=== PATIENT | female | born 1980 | race Caucasian/White ===

== ENCOUNTER 2022-02-06 13:32 | Outpatient (REF) | payer BC, SELFPAY ==
[2022-02-07 02:49] LABS: CT PCR NOT DETECTED (Not Detect.); NG PCR NOT DETECTED (Not Detect.)
[2022-02-07 13:03] LABS: BV Int Neg Control Negative (Negative); BV Int Pos Control Positive (Positive)
[2022-02-09 17:02] LABS: HPV mRNA E6/E7 rflx Not Detected (Not Detected)
== END 2022-02-06 13:33 | disposition home or self-care (01) ==
LOC: HO.LAB 13:32
PROVIDERS: PCP Internal Medicine; Visit Provider Advanced Practice Midwife
DX: Z01.419 Encounter for gynecological examination (general) (routine) without abnormal findings (principal); Z11.51 Encounter for screening for human papillomavirus (HPV); Z20.2 Contact with and (suspected) exposure to infections with a predominantly sexual mode of transmission; Z87.42 Personal history of other diseases of the female genital tract; Z97.5 Presence of (intrauterine) contraceptive device; Z84.81 Family history of carrier of genetic disease
CPT/HCPCS: 87480; 87491; 87510; 87591; 87624; 87660; 88142

== ENCOUNTER 2022-03-18 08:16 | Outpatient (REF) | payer BC, SELFPAY ==
--- NOTE | ~2022-03-18 | MM_ITS ---
EXAMINATION: MM SCREENING DIGITAL BREAST TOMOSYNTHESIS, BILATERAL CLINICAL INFORMATION: Screening. Asymptomatic. Age 42. No prior breast imaging. The lifetime risk of breast cancer based on the Tyrer-Cuzick Model is 14%. COMPARISON: None (current study represents initial baseline exam). TECHNIQUE: Digital breast tomosynthesis is performed in both the craniocaudal and mediolateral oblique views along with computer-aided detection (CAD). Synthesized 2D images are generated from the tomosynthesis. FINDINGS: There are scattered areas of fibroglandular density (ACR BI-RADS breast composition Category b). There are no significant masses, abnormal calcifications, or other abnormalities. The axilla and skin contours are unremarkable. MM/MM tomosynthesis screening BI IMPRESSION: No mammographic evidence of malignancy. ASSESSMENT: BI-RADS 1: Negative RECOMMENDATION: Routine annual mammography screening. This patient's information was entered into a reminder system with a target due date for their next mammogram.
== END 2022-03-18 08:17 | disposition home or self-care (01) ==
LOC: HO.MAMMO 08:16
PROVIDERS: Visit Provider Advanced Practice Midwife
DX: Z12.31 Encounter for screening mammogram for malignant neoplasm of breast (principal)
CPT/HCPCS: 77063; 77067

== ENCOUNTER → 2022-03-27 15:00 | Outpatient (BNVA) | payer BC, SELFPAY | PROVIDERS: PCP Internal Medicine; Visit Provider Advanced Practice Midwife | DX: Z30.433 Encounter for removal and reinsertion of intrauterine contraceptive device (principal); Z30.09 Encounter for other general counseling and advice on contraception; B37.3 Candidiasis of vulva and vagina; N76.0 Acute vaginitis; B96.89 Other specified bacterial agents as the cause of diseases classified elsewhere; Z84.81 Family history of carrier of genetic disease; Z87.42 Personal history of other diseases of the female genital tract | CPT/HCPCS: 58300; 58301; 81025; J7298 ==

== ENCOUNTER 2023-03-24 07:33 | Outpatient (REF) | payer BC, SELFPAY ==
--- NOTE | ~2023-03-24 | MM_ITS ---
EXAMINATION: MM SCREENING DIGITAL BREAST TOMOSYNTHESIS, BILATERAL CLINICAL INFORMATION: Screening. Asymptomatic. The lifetime risk of breast cancer based on the Tyrer-Cuzick Model is 14%. COMPARISON: Mammography: 03/18/2022 (baseline) TECHNIQUE: Digital breast tomosynthesis is performed in both the craniocaudal and mediolateral oblique views along with computer-aided detection (CAD). Synthesized 2D images are generated from the tomosynthesis. FINDINGS: There are scattered areas of fibroglandular density (ACR BI-RADS breast composition Category b). There are no significant masses, abnormal calcifications, or other abnormalities. Parenchymal pattern is similar to prior exam. No architectural abnormality. The axilla and skin contours are unremarkable. MM/MM tomosynthesis screening BI IMPRESSION: No significant changes from prior baseline exam. ASSESSMENT: BI-RADS 1: Negative RECOMMENDATION: Routine annual mammography screening. This patient's information was entered into a reminder system with a target due date for their next mammogram.
== END 2023-03-24 07:34 | disposition home or self-care (01) ==
LOC: HO.MAMMO 07:33
PROVIDERS: PCP Internal Medicine; Visit Provider Internal Medicine
DX: Z12.31 Encounter for screening mammogram for malignant neoplasm of breast (principal)
CPT/HCPCS: 77063; 77067

== ENCOUNTER → 2023-08-04 11:45 | Outpatient (BNV) | payer BC, SELFPAY | PROVIDERS: Visit Provider Psychiatry & Neurology Psychiatry | DX: F33.9 Major depressive disorder, recurrent, unspecified (principal) | CPT/HCPCS: 90792; 99213 ==

== ENCOUNTER 2023-08-15 10:45 | Outpatient (RCR) | payer BC, SELFPAY ==
--- NOTE | 2023-08-04 10:33 | HO.PS.ADMBH ---
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 Her youngest, 7-year-old lives with her. The father is involved also. Codie states that she was recently admitted and discharged from [facility] inpatient Unit. The reason for the admission was feeling extremely overwhelmed and about to ?snap?. She has been on medications in the past, a number of different SSRIs but did not like the way she felt on them. She denies any major substance abuse problems except for occasional alcohol use as a way of coping but not on a regular basis. No other substances. She was put on Wellbutrin XL 150 mg with no discernible benefits yet, Inderal 10 mg t.i.d. p.r.n. with benefits. She also has been on Adderall XR 20 mg and IR 10 mg in the afternoon since 2010. She has had suicidal ideations and 1 attempt 10 years ago by an overdose but did not go to the emergency room and slept it off. She also talked about some of her current stress sores and feeling overwhelmed from other people depending on her and sometimes she feels ?dumped on? by her daughter who is in college. Past Psychiatric History: Outpatient [facility] Medical History (Updated 08/04/23 @ 10:41 by Ruben Fernandez MD) Diverticula, small intestine Hyperlipemia Surgical History (Updated 02/06/22 @ 14:19 by Malick Fontenot CMA) H/O surgical amputation of finger Social History: Codie is 1 of 5 siblings. Her parents are together and retired and live in [facility]. Her older sister has some psychiatric problems and 1 of her brothers has schizophrenia. She denies any history of abuse growing up but states that may be some neglect. 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 she has had no marriages and has 2 children. The father of the younger 1 is involved. Substance History: Occasional alcohol Trauma History: Use/abuse none Meds/Allergies Meds Home Medications Medication Instructions Recorded Confirmed Type atorvastatin 40 mg tablet 40 mg PO DAILY 02/06/22 03/27/22 History dextroamphetamine-amphetamine 30 30 mg PO DAILY 02/06/22 03/27/22 History mg tablet (Adderall) levonorgestrel 21 mcg/24 hours (8 intrauterine 02/06/22 03/27/22 History yrs) 52 mg intrauterine device (Mirena) Allergies Allergies Allergy/AdvReac Type Severity Reaction Status Date / Time No Known Allergies Allergy Verified 03/27/22 15:19 [No Known Allergies*] Mental Status Exam Mental Status Exam Narrative: In today's visit she is alert, oriented and pleasant. Normal speech. Good eye contact. Affect is appropriate and constricted. No signs of psychosis. Cognitively she is intact with her thought processes being goal directed. Little elaboration. No active SI/HI. Judgment is intact Assessment & Plan Assessment & Plan (1) Major depression: Status: Acute Code(s): F32.9 - Major depressive disorder, single episode, unspecified Plan She will start partial hospital program for which she is appropriate. She will continue her medications and increase the Wellbutrin XL to 300 mg. She was given a 3 month supply it discharge. She will continue Adderall and Inderal Patient educated on: medication risk/benefits Certification I certify that partial hospital treatment is medically necessary due to the symptoms and problems resulting from the patient's mental illness and the failure to treat the patient at the partial hospital level of care would likely result in the patient requiring inpatient psychiatric care which could not be prevented at a less intensive level of care. Time Spent With Patient Time: Total time managing care of this patient today ____ minutes.
[2023-08-04 11:44] VITALS: BMI 29.6
[2023-08-04 11:45] VITALS: BP 109/82; PULSE 59; TEMP 37
--- NOTE | 2023-08-04 12:29 | PC.ADMIT ---
Patient is a 43 year old female who was referred to [facility] by [facility] behavioral health inpatient unit where she was admitted d/t increased depression with passive SI, anxiety, poor sleep, and ETOH use. Patient struggling with financial concerns and worried about her daughter's mental health who is currently a student in her kiana year at [employer]. Patient reports drinking ETOH 2-5 days a week drinking 1/2 pint to 1/2 liter at a time. Last use, several weeks ago. Denied hx of withdrawal sxs from ETOH. Per [facility] records toxicology reports positive for Oxycontin, patient denied use. Patient has a history of MAT with Vivitrol from [id number] for six months. She is currently prescribed Naltrexone however is not taking the medication at this time. She denied any cravings to use. Medication education provided. Codie is alert and oriented x4. calm and cooperative. Presented with depressed mood and anxious affect. Denied SI. She was given a copy of her safety plan and I reviewed this plan with her. Medications reconciled wiht patient and D/C paperwork from [facility]. Patient stated she is on a new medication for anxiety, Propranolol, verified with patient's pharmacy. She is currently taking a leave of absence from work to work on her mental health.
[2023-08-05 09:04] LABS: Amphetamine Screen Urine POSITIVE (Not Detect); Barbiturates, Urine Not Detected (Not Detect); Benzodiazepines Screen Urine Not Detected (Not Detect); Cannabinoid Screen Urine Not Detected (Not Detect); Cocaine Screen Urine Not Detected (Not Detect); Fentanyl, urine Not Detected (Not Detect); Opiate Screen Urine Not Detected (Not Detect); Phencyclidine Screen Urine Not Detected (Not Detect)
--- NOTE | 2023-08-08 08:28 | HO.PHP ---
The clients case was reviewed and opened in treatment team
--- NOTE | 2023-08-15 09:50 | HO.PHPPROGNO ---
Subjective Subjective Date of Service: 08/15/23 Reason For Visit: depression Healthcare Proxy: No Guardianship: No Medical Problems Affecting Mental Status: No Interim History: Codie is seen for follow-up/discharge. She has been stable and talked at length about the specific areas that the program has been very helpful to her. She does have providers on the outside and has an appointment on 08/23/2023. Current medications were reviewed. She has enough of a supply and no prescriptions were sent in. She denies any side effects. No changes were made today. Discharge papers were signed Medication Compliance: Yes Side effects from medications: No Attending Groups: Yes Review of Systems Review of Systems Yes all other systems are reviewed and are negative Mental Status Exam Mental Status Exam Narrative: In today's visit she is alert, oriented and pleasant. Normal speech. Good eye contact. Affect is appropriate and constricted. No signs of psychosis. Cognitively she is intact with her thought processes being goal directed. Little elaboration. No active SI/HI. Judgment is intact Diagnostics Vital Signs (24Hr): BMI result Body Mass Index 29.6 Assessment & Plan Assessment & Plan (1) Major depression: Status: Acute Code(s): F32.9 - Major depressive disorder, single episode, unspecified Plan Codie is being discharged today. She will follow-up with her outpatient providers Patient educated on: diagnosis and medication risk/benefits Certification I certify that partial hospital treatment is medically necessary due to the symptoms and problems resulting from the patient's mental illness and the failure to treat the patient at the partial hospital level of care would likely result in the patient requiring inpatient psychiatric care which could not be prevented at a less intensive level of care. Total time managing care of this patient today ____ minutes. Discharge Plan Discharge Attending provider: Jose Manuel Patterson Medications: No Action trazodone 50 mg tablet 50 mg PO BEDTIME nicotine (polacrilex) 2 mg Gum 2 mg BUCCAL Q2H naltrexone 50 mg Tablet 50 mg PO DAILY dextroamphetamine-amphetamine 10 mg tablet 1 tab PO DAILY propranolol 10 mg Tablet 10 mg PO TID PRN (Reason: Anxiety) dextroamphetamine-amphetamine 20 mg capsule,extended release 24hr 1 cap PO DAILY bupropion HCl 150 mg tablet extended release 24 hr 150 mg PO QAM atorvastatin 40 mg tablet 40 mg PO BEDTIME Mirena 20 mcg/24 hours (7 yrs) 52 mg intrauterine device intrauterine Stand Alone Forms: Patient Portal Discharge page Patient Education: Depression (DC)
--- NOTE | 2023-08-15 14:14 | HO.PHP ---
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 They will call her directly with the information. I called and left a message for [facility] re appointment for the client, I spoke with Gudelia YOON, the clients insurance office manager and she states that she had also called and made a referral to Jorge [facility]to [facility]. She reassured me that he does have openings.
== END 2023-08-15 23:59 | disposition home or self-care (01) ==
LOC: HO.PHPA 10:45
PROVIDERS: Psychiatry & Neurology Psychiatry; Visit Provider Psychiatry & Neurology Psychiatry
DX: F32.9 Major depressive disorder, single episode, unspecified (principal); Z79.899 Other long term (current) drug therapy
CPT/HCPCS: 80307; 90791; 90853

== ENCOUNTER 2024-04-05 07:30 | Outpatient (REF) | payer BC, SELFPAY | END 2024-04-05 07:31 | disposition home or self-care (01) | LOC: HO.MAMMO 07:30 | PROVIDERS: PCP Internal Medicine; Visit Provider Internal Medicine | DX: Z12.31 Encounter for screening mammogram for malignant neoplasm of breast (principal) | CPT/HCPCS: 77063; 77067 ==

== ENCOUNTER → 2024-04-05 07:30 | Outpatient (BNV) | payer BC, SELFPAY | PROVIDERS: PCP Internal Medicine; Visit Provider Radiology Diagnostic Radiology | DX: Z12.31 Encounter for screening mammogram for malignant neoplasm of breast (principal) | CPT/HCPCS: 77063; 77067 ==

== ENCOUNTER 2024-11-23 13:03 | Outpatient (REF) | payer BC, SELFPAY ==
[2024-11-24 04:35] LABS: CT PCR NOT DETECTED (Not Detect.); NG PCR NOT DETECTED (Not Detect.)
[2024-11-24 11:35] LABS: Bacterial Vaginosis PCR NEGATIVE (Negative); Candida Group PCR NOT DETECTED (Not Detect); Candida glab krusei PCR NOT DETECTED (Not Detect); Trichomonas vaginalis PCR NOT DETECTED (Not Detect)
== END 2024-11-23 13:04 | disposition home or self-care (01) ==
LOC: HO.LAB 13:03
PROVIDERS: PCP Internal Medicine; Visit Provider Advanced Practice Midwife
DX: Z30.431 Encounter for routine checking of intrauterine contraceptive device (principal); N92.1 Excessive and frequent menstruation with irregular cycle; N89.8 Other specified noninflammatory disorders of vagina; Z20.2 Contact with and (suspected) exposure to infections with a predominantly sexual mode of transmission
CPT/HCPCS: 81515; 87491; 87591

== ENCOUNTER 2024-11-23 13:03 | Outpatient (AMB) | payer BC, SELFPAY ==
--- NOTE | 2024-11-23 13:08 | MHC.OFFVIS ---
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 Services: Roll Trucker Present Information Interpreted: clinical only Acquisitions Logistics Analyst: Acquisitions Logistics Analyst Present Allergies methylphenidate [From Concerta] Allergy (Verified 11/23/24 13:12) Rash Medication List - Last Reconciled 11/23/24 by Zainab Castaneda CNM bupropion HCl XL 150 mg PO QAM dextroamphetamine-amphetamine 10 mg 1 tab PO DAILY dextroamphetamine-amphetamine 20 mg ER 1 cap PO DAILY levonorgestrel (Mirena) intrauterine Is last menstrual period known: Yes Last menstrual period: 11/20/24 HPI HPI IUD Check: Details: Patient is here to check her IUD she has had this ones since the spring. She normally does not get any cramping or spotting or bleeding or periods with it but she started having cramping and spotting the feels like. On Friday this is unusual for her end of concern she also was physically active with her 8-year-old and pulled a lower back muscle but she does not know if that is just a coincidence or if something else happened the last time she had sex was about a week ago she did do a test at work and it was negative and she also had a serum test done at work, which was also negative. She is concerned that the IUD have become mis placed [facility] Medical History (Updated 11/23/24 @ 13:44 by Zainab Castaneda CNM) Diverticula, small intestine Hyperlipemia Surgical History (Updated 08/04/23 @ 13:04 by Jacqueline Elizondo RN) History of surgery Social History (Updated 02/06/22 @ 14:19 by Malick Fontenot CMA) Household Members: Children Alcohol intake: never Patient Tobacco Use Status: Never used Tobacco Gender identity: Female Female Reproductive History Menstrual Age of Menarche: 13 Duration of menses: <3 days Date of last menstrual period: 11/20/24 control method: progestin IUCD Date of last pap smear: 02/07/22 (negative) History of abnormal pap smear: Yes (2017 abn.FIDELIA I) Physical Exam Other: Normal external speculum exam vagina is pink and moist with a pinkish discharge cervix multiparous pink smooth with nabothian cyst at cervical os Mirena strings visible and extending about 1-2 cm through os. Cervix probed with Q-tips and Cytobrush no plastic body Mirena IU S palpable in cervical os indicating higher placement. Bimanual-cervix long closed thick mobile nontender uterus small anteverted mobile nontender good muscle tone with Kegel. Assessment & Plan Assessment & Plan (1) Presence of 52 mg levonorgestrel-releasing intrauterine device (IUD): Code(s): Z97.5 - Presence of (intrauterine) contraceptive device Category: Social Hx (2) Breakthrough bleeding associated with intrauterine device (IUD): Comment: and cramping since 11/20 Code(s): N92.1 - Excessive and frequent menstruation with irregular cycle; Z97.5 - Presence of (intrauterine) contraceptive device Category: Medical Plan I have ordered pelvic ultrasound to be done on an urgent basis preferably this week. Printouts of the order also given to patient and she may attempt to see if she can get an ultrasound quicker at her work site as she works at the [employer]. discussed that we can have a tele visit after just to review the results when they are read. Discussed that if the IUD has become this placed or is low lying then that would be reason to remove it and it would need to be replaced in future if she desired further contraception but she is undecided at this point about that. 1st we need to see if there is a problem with it as she is uncomfortable.. If i.f there is no problem with the IUD her ultrasound then her next visit would be for her annual exam if the IUDs low lying or malpositioned the next appointment would be for removal. If she experienced severe pain she should seek emergency care in the meantime. Orders: Orders US pelvic and transvaginal Today N92.1 - Excessive and frequent menstruation with irregular cycle, Z97.5 - Presence of (intrauterine) contraceptive device Coding Level of Care Code Est Pt Level 3 (51004) Diagnoses Presence of 52 mg levonorgestrel-releasing intrauterine device (IUD) Z97.5 Breakthrough bleeding associated with intrauterine device (IUD) N92.1; Z97.5
[2024-11-23 13:09] VITALS: BP 106/68; BMI 29.3
--- OUTSIDE RECORDS SUMMARY | 2024-11-23 15:19 | XMS_ITS | Continuity of Care Document ---
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 It does not include entries that were removed or entered in error. Problem Status Onset Date Problem Type Date of Resolution Comments Source Closed fracture of metatarsal bone Active 2018 Condition Sep 29, 2023 Entered By: JAMES SHIPLEY Comment: Closed nondisplaced fracture of fourth metatarsal bone of left foot [facility] Hypercholesterolemia Active 2017 Condition [facility] Depression Active 2008 Condition [facility] Dry eyes Active 2008 Condition Sep 29, 2023 Entered By: JAMES SHIPLEY Comment: dry eye syndrome both eyes [facility] Myopia Active 2008 Condition Sep 29, 2023 Entered By: JAMES SHIPLEY Comment: refractive error - myopia [facility] Regular astigmatism Active 2008 Condition [facility] Attention Deficit Hyperactivity Disorder ([facility] [id number]) Active Condition Oct 07, 2023 Entered By: QAMAR CONNOLLY Comment: [place] presc[place] [facility] Chronic Post-Traumatic Stress Disorder ([facility]CT [id number]) Active Condition [facility] Polycystic Ovary (SCT 529584068) Active Condition Oct 07, 2023 Entered By: QAMAR CONNOLLY Comment: on spironolactone and tretinoin [facility] no psychiatric diagnosis on axis II Inactive Condition DoD partner relational problem Inactive Condition DoD depression Active Condition DoD psychiatric diagnosis or condition deferred on axis I Active Condition DoD dry eye syndrome both eyes Active Condition DoD astigmatism regular Active Condition Do D refractive error - myopia Active Condition DoD routine ophthalmological exam Active Condition DoD visit for: occupational health / fitness exam Active Condition DoD routine gynecological exam with cervical pap smear Inactive Condition DoD acne Active Condition DoD volume depletion Inactive Condition DoD nausea with vomiting Inactive Condition DoD Diagnosis: ICD-10-CM E28.2 Polycystic ovarian syndrome Active Diagnosis [facility] Diagnosis: ICD-10-CM R30.0 Dysuria Active Diagnosis [facility] Diagnosis: ICD-10-CM Z71.89 Other specified counseling Active Diagnosis [facility] Diagnosis: ICD-10-CM Z77.9 Oth contact w and (suspected) exposures hazardous to health Active Diagnosis [facility] Medications Combined list of outpatient medications from Department of Defense and Veterans Affairs facilities.Medications provided include 1) outpatient medications from the last 15 months, and 2) patient-reported medications. Medication Details Route Status Patient Instructions Prescription Expires Prescription Number Last Dispense Date Ordering Provider Order Date Order Qty Source AMPHETAMINE /DEXTROAMPH ETAMINE RESIN COMPLEX 10MG CAP,SA TAKE 2 CAPSULES BY MOUTH ONCE DAILY ORAL ACTIVE FURCOLO,T GREG 2022 [facility] BUPROPION HCL 300MG 24HR TAB,SA TAKE ONE TABLET BY MOUTH ONCE DAILY ORAL ACTIVE FURCOLO,T GREG 2022 [facility] CIPROFLOXAC IN HCL 500MG TAB TAKE ONE TABLET BY MOUTH EVERY 12 HOURS FOR INFECTIO N ORAL 05/23/2024 [id number] Ale LENZ 2023 20 [facility] METRONIDAZO LE 500MG TAB TAKE ONE TABLET BY MOUTH EVERY 8 HOURS FOR INFECTIO N ORAL 05/23/2024 [id number] Ale LENZ 2023 30 [facility] PROPRANOLOL HCL 10MG TAB TAKE ONE TABLET BY MOUTH ONCE DAILY ORAL ACTIVE FURCOLO,T GREG 2022 [facility] SPIRONOLACT ONE 25MG TAB TAKE TWO TABLETS BY MOUTH ONCE DAILY FOR FLUID ACCUMULA TION ORAL 10/31/2024 [id number] 4 FURCOLO,T GREG 2023 [facility] SPIRONOLACT ONE 25MG TAB TAKE TWO TABLETS BY MOUTH ONCE DAILY FOR FLUID ACCUMULA TION ORAL 06/21/2024 [id number] 4 FURCOLO,T GREG 2023 180 [facility] SPIRONOLACT ONE 25MG TAB TAKE TWO TABLETS BY MOUTH ONCE DAILY FOR FLUID ACCUMULA TION ORAL 01/05/2024 [id number] 3 FURCOLO,T GREG 2022 180 [facility] SULFAMETHOX AZOLE 800MG/TRIME THOPRIM 160MG TAB TAKE 1 TABLET BY MOUTH TWICE DAILY ORAL 10/10/2024 [id number] 4 FURCOLO,T GREG 2023 6 [facility] TRETINOIN 0.025% CREAM,TOP APPLY A THIN LAYER TOPICALL Y ONCE DAILY FOR ACNE TOPICA L 11/06/2023 [id number] 3 FURCOLO,T GREG 2022 45 [facility] Allergies, Adverse Reactions, Alerts Combined list of allergies from Department of Defense and Veterans Affairs facilities. It does not include entries that were removed or entered in error. Substance Category Reaction Severity Reaction type Status Date Reported Comments Source CONCERTA Propensity to adverse reactions to drug (finding) Eruption active 3 [facility] No Known Allergies Drug allergy (disorder) active 8 [employer] Immunizations Combined list of available immunizations from the Department of Defense and Veterans Affairs facilities. Immunization Series Date Given Administered By Site Reaction Lot Number CVX Code Drug Poolroom/Poolhall Manager Status Comments Source INFLUENZA, UNSPECIFIED FORMULATION 2023 88 [facility] INFLUENZA, UNSPECIFIED FORMULATION 1 2022 88 [facility] COVID-19 (MODERNA), MRNA, LNP-S, PF, 100 MCG/0.5ML DOSE OR 50 MCG/0.25ML DOSE 2 2020 207 complet ed Covid card Lot#: [id number] Mfr: [employer] [facility] [place] [facility] COVID-19 (MODERNA), MRNA, LNP-S, PF, 100 MCG/0.5ML DOSE OR 50 MCG/0.25ML DOSE 1 2019 207 complet ed Covid card Lot#: [id number] Mfr: [employer] [facility] INFLUENZA, SEASONAL, INJECTABLE 2016 141 complet ed Site: Left Deltoid [facility] Influenza, seasonal, injectable, preservative free 5 2011 [id number] [employer] (CSL) complet ed Influenza , seasonal, injectabl e, preservat syl free DoD Influenza, seasonal, injectable, preservative free 4 2010 [id number] 140 [employer] (CSL) complet ed Influenza , seasonal, injectabl e, preservat syl free DoD influenza virus vaccine, split virus (incl. purified surface antigen)-reti red CODE 1 2009 [id number] 15 [employer] (CSL) complet ed influenza virus vaccine, split virus (incl. purified surface antigen)- retired CODE DoD Novel influenza-H1N 1-09, preservative- free, injectable 1 2008 [id number] 126 [employer]. (NOV) complet ed Novel influenza -[id number], preservat syl-free, injectabl e DoD hepatitis B vaccine, adult dosage 0 2008 43 () Not Given hepatitis B vaccine, adult dosage DoD influenza virus vaccine, split virus (incl. purified surface antigen)-reti red CODE 1 2008 [id number] 15 [employer] (CSL) complet ed influenza virus vaccine, split virus (incl. purified surface antigen)- retired CODE DoD HEP A-HEP B 3 2008 104 complet ed hepatitis A and hepatitis B vaccine-J /DOD Lot#: [id number] A [facility] hepatitis A and hepatitis B vaccine 3 2008 [id number] 104 [facility] ed hepatitis A and hepatitis B vaccine DoD influenza virus vaccine, live, attenuated, for intranasal use 1 2007 [id number] 111 [employer]. (MED) complet ed influenza virus vaccine, live, attenuate d, for intranasa l use DoD HEP A-HEP B 2 2007 104 complet ed hepatitis A and hepatitis B vaccine-J /[facility] Lot#: [id number] A [facility] hepatitis A and hepatitis B vaccine 2 2007 [id number] 6AA 104 [facility] ([facility] complet ed hepatitis A and hepatitis B vaccine DoD HEP A-HEP B 1 2007 104 complet ed hepatitis A and hepatitis B vaccine-J /[facility] Lot#: [id number] A [facility] measles, mumps and rubella virus vaccine 1 2007 03 () Not Given measles, mumps and rubella virus vaccine DoD varicella virus vaccine 1 2007 21 () Not Given varicella virus vaccine DoD hepatitis A and hepatitis B vaccine 1 2007 [id number] 104 [facility] ([facility]) complet ed hepatitis A and hepatitis B vaccine DoD DTAP 3 2007 20 complet ed tetanus toxoid, reduced diphtheri a toxoid, and acellular pertussis vaccine, adsorbed- V/DOD Lot#: [id number] Mfr: SANOFI PASTEUR [facility] MENINGOCOCCAL MCV4P 1 2007 114 complet ed meningoco ccal polysacch aride (groups A, C, Y and W-135) diphtheri a toxoid conjugate vaccine (MCV4P)-J /[facility] Lot#: [id number] Mfr: [facility] POLIO, UNSPECIFIED FORMULATION 1 2007 89 complet ed polioviru s vaccine, inactivat ed-JLV/DO D Lot#: [id number] Mfr: SANOFI [facility] poliovirus vaccine, inactivated 1 2007 [id number] 10 Sanofi Pasteur ([facility]) complet ed polioviru s vaccine, inactivat ed DoD meningococcal polysaccharid e (groups A, C, Y and W-135) diphtheria toxoid conjugate vaccine (MCV4P) 1 2007 [id number] Sanofi Pasteur ([facility]) complet ed meningoco ccal polysacch aride (groups A, C, Y and W-135) diphtheri a toxoid conjugate vaccine (MCV4P) DoD tetanus toxoid, reduced diphtheria toxoid, and acellular pertu is vaccine, adsorbed 1 2007 [id number] 115 Sanofi Pasteur ([facility]) complet ed tetanus toxoid, reduced diphtheri a toxoid, and acellular pertussis vaccine, adsorbed DoD Results Combined list of recent chemistry, hematology and other laboratory results from Department of Defense and Veterans Affairs, ranging from 15 months to all on record, depending upon the facility. Order Name Results Value Reference Range Date Interpretation Specimen Comments Source LIPID PANEL FASTING CHOLESTERO L [MASS/VOLU ME] IN SERUM OR PLASMA 270 mg/dL 10/07 H Specimen Type: SERUM No comment entered. Ordering Provider: TAYE CONNOLLY Report Released Date/Time: Sep 22, 2024 12:58 PM Reporting Lab: [address] [address] Performing Lab: [address] [address] [facility] LIPID PANEL FASTING TRIGLYCERI DE [MASS/VOLU ME] IN SERUM OR PLASMA 176 mg/dL 0 - 150 10/07 H Specimen Type: SERUM No comment entered. Ordering Provider: TAYE CONNOLLY Report Released Date/Time: Sep 22, 2024 12:58 PM Reporting Lab: [address] [address] Performing Lab: [address] [address] [facility] LIPID PANEL FASTING CHOLESTERO L IN LDL [MASS/VOLU ME] IN SERUM OR PLASMA BY EZEQUIEL Giang 192 mg/dL 0 - 129 10/07 H Specimen Type: SERUM No comment entered. Ordering Provider: TAYE CONNOLLY Report Released Date/Time: Sep 22, 2024 12:58 PM Reporting Lab: [facility] [place] [facility] [address] [facility] [address] Performing Lab: [facility] [place] [facility] [address] [facility] [address] [facility] [place] [facility] LIPID PANEL FASTING CHOLESTERO L.TOTAL/CH OLESTEROL IN HDL [MASS RATIO] IN SERUM OR PLASMA 6.3 10/07 Specimen Type: SERUM No comment entered. Ordering Provider: TAYE CONNOLLY Report Released Date/Time: Sep 22, 2024 12:58 PM Reporting Lab: [facility] [place] [address] [address] Performing Lab: [facility] [address] [address] [facility] LIPID PANEL FASTING CHOLESTERO L IN HDL [MASS/VOLU ME] IN SERUM OR PLASMA 43 mg/dL 40 - 60 10/07 Specimen Type: SERUM No comment entered. Ordering Provider: TAYE CONNOLLY Report Released Date/Time: Sep 22, 2024 12:58 PM Reporting Lab: [facility] [place] [address] [address] Performing Lab: [facility] [place] [address] [address] [facility] [place] [facility] BASIC METABOLI C PANEL (fasting ) UREA NITROGEN [MASS/VOLU ME] IN SERUM OR PLASMA 13 mg/dL 7 - 25 10/07 Specimen Type: SERUM No comment entered. Ordering Provider: TAYE CONNOLLY Report Released Date/Time: Sep 22, 2024 12:58 PM Reporting Lab: [facility] [place] [facility] [address] [facility] [address] Performing Lab: [facility] [place] [address] [address] [facility] [place] [facility] BASIC METABOLI C PANEL (fasting ) GLUCOSE [MASS/VOLU ME] IN SERUM OR PLASMA 92 mg/dL 65 - 100 10/07 Specimen Type: SERUM No comment entered. Ordering Provider: TAYE CONNOLLY Report Released Date/Time: Sep 22, 2024 12:58 PM Reporting Lab: [facility] [address] [address] Performing Lab: [address] [address] [facility] BASIC METABOLI C PANEL (fasting ) SODIUM [MOLES/VOL UME] IN SERUM OR PLASMA 135 mmol/L 135 - 145 10/07 Specimen Type: SERUM No comment entered. Ordering Provider: TAYE CONNOLLY Report Released Date/Time: Sep 22, 2024 12:58 PM Reporting Lab: [address] [address] Performing Lab: [address] [address] [facility] BASIC METABOLI C PANEL (fasting ) POTASSIUM [MOLES/VOL UME] IN SERUM OR PLASMA 4.2 mmol/L 3.5 - 5.0 10/07 Specimen Type: SERUM No comment entered. Ordering Provider: TAYE CONNOLLY Report Released Date/Time: Sep 22, 2024 12:58 PM Reporting Lab: [facility] [address] [address] Performing Lab: [facility] [address] [address] [facility] BASIC METABOLI C PANEL (fasting ) CHLORIDE [MOLES/VOL UME] IN SERUM OR PLASMA 103 mmol/L 100 - 110 10/07 Specimen Type: SERUM No comment entered. Ordering Provider: TAYE CONNOLLY Report Released Date/Time: Sep 22, 2024 12:58 PM Reporting Lab: [address] [address] Performing Lab: [facility] [address] [facility] [address] [facility] BASIC METABOLI C PANEL (fasting ) CARBON DIOXIDE, TOTAL [MOLES/VOL UME] IN SERUM OR PLASMA 23 meq/L 20 - 30 10/07 Specimen Type: SERUM No comment entered. Ordering Provider: TAYE CONNOLLY Report Released Date/Time: Sep 22, 2024 12:58 PM Reporting Lab: [address] [address] Performing Lab: [address] [address] [facility] BASIC METABOLI C PANEL (fasting ) CREATININE [MASS/VOLU ME] IN SERUM OR PLASMA 0.76 mg/dL 0.50 - 1.40 10/07 Specimen Type: SERUM No comment entered. Ordering Provider: TAYE CONNOLLY Report Released Date/Time: Sep 22, 2024 12:58 PM Reporting Lab: [address] [address] Performing Lab: [address] [address] [facility] BASIC METABOLI C PANEL (fasting ) GLOMERULAR FILTRATION RATE/1.73 SQ M.PREDICTE D [VOLUME RATE/AREA] IN SERUM, PLASMA OR BLOOD BY CREATININE -BASED FORMULA (CKD-EPI 2020) >90mL/mi n 60 10/07 Specimen Type: SERUM No comment entered. Ordering Provider: TAYE CONNOLLY Report Released Date/Time: Sep 22, 2024 12:58 PM Reporting Lab: [address] [address] Performing Lab: [address] [address] [facility] URINALYS IS CLEAN CATCH COLOR OF URINE Yellow 09/10 Specimen Type: URINE Comment: If Glucose = >500 and Ketones are positive, please alert the Physician. Ordering Provider: TAYE CONNOLLY Report Released Date/Time: Sep 10, 2024 02:12 PM Reporting Lab: [facility] [address] [facility] [address] Performing Lab: [facility] [address] [facility] [address] [facility] URINALYS IS CLEAN CATCH APPEARANCE OF URINE Turbid 09/10 Specimen Type: URINE Comment: If Glucose = >500 and Ketones are positive, please alert the Physician. Ordering Provider: TAYE CONNOLLY Report Released Date/Time: Sep 10, 2024 02:12 PM Reporting Lab: [facility] [place] [facility] [address] [facility] [address] Performing Lab: [facility] [address] [facility] [address] [facility] URINALYS IS CLEAN CATCH GLUCOSE [MASS/VOLU ME] IN URINE Normalmg /dL 09/10 Specimen Type: URINE Comment: If Glucose = >500 and Ketones are positive, please alert the Physician. Ordering Provider: TAYE CONNOLLY Report Released Date/Time: Sep 10, 2024 02:12 PM Reporting Lab: [facility] [address] [facility] [address] Performing Lab: [facility] [place] [facility] [address] [facility] [address] [facility] URINALYS IS CLEAN CATCH KETONES [MASS/VOLU ME] IN URINE BY TEST STRIP NEGATIVE mg/dL 09/10 Specimen Type: URINE Comment: If Glucose = >500 and Ketones are positive, please alert the Physician. Ordering Provider: TAYE CONNOLLY Report Released Date/Time: Sep 10, 2024 02:12 PM Reporting Lab: [facility] [address] [facility] [address] Performing Lab: [facility] [address] [facility] [address] [facility] URINALYS IS CLEAN CATCH ERYTHROCYT ES [PRESENCE] IN URINE SEDIMENT BY LIGHT MICROSCOPY NEGATIVE mg/dL 09/10 Specimen Type: URINE Comment: If Glucose = >500 and Ketones are positive, please alert the Physician. Ordering Provider: TAYE CONNOLLY Report Released Date/Time: Sep 10, 2024 02:12 PM Reporting Lab: [facility] [place] [facility] [address] [facility] [address] Performing Lab: [facility] [place] [facility] [address] [facility] [address] [facility] [place] URINALYS IS CLEAN CATCH PROTEIN [MASS/VOLU ME] IN URINE BY TEST STRIP 20 mg/dL 09/10 Specimen Type: URINE Comment: If Glucose = >500 and Ketones are positive, please alert the Physician. Ordering Provider: TAYE CONNOLLY Report Released Date/Time: Sep 10, 2024 02:12 PM Reporting Lab: [facility] [place] [address] [address] Performing Lab: [facility] [place] [address] [address] [facility] [place] [facility] URINALYS IS CLEAN CATCH NITRITE [PRESENCE] IN URINE NEGATIVE mg/dL 09/10 Specimen Type: URINE Comment: If Glucose = >500 and Ketones are positive, please alert the Physician. Ordering Provider: TAYE CONNOLLY Report Released Date/Time: Sep 10, 2024 02:12 PM Reporting Lab: [facility] [place] [facility] [address] [facility] [address] Performing Lab: [facility] [place] [facility] [address] [facility] [address] [facility] [place] URINALYS IS CLEAN CATCH BILIRUBIN. TOTAL [PRESENCE] IN URINE NEGATIVE mg/dL 09/10 Specimen Type: URINE Comment: If Glucose = >500 and Ketones are positive, please alert the Physician. Ordering Provider: TAYE CONNOLLY Report Released Date/Time: Sep 10, 2024 02:12 PM Reporting Lab: [facility] [place] [address] [address] Performing Lab: [facility] [place] [facility] [address] [facility] [address] [facility] [place] URINALYS IS CLEAN CATCH SPECIFIC GRAVITY OF URINE BY REFRACTOME TRY 1.024 1.016 - 1.022 09/10 H Specimen Type: URINE Comment: If Glucose = >500 and Ketones are positive, please alert the Physician. Ordering Provider: TAYE CONNOLLY Report Released Date/Time: Sep 10, 2024 02:12 PM Reporting Lab: [facility] [place] [address] [address] Performing Lab: [facility] [place] [address] [address] [facility] [place] [facility] URINALYS IS CLEAN CATCH PH OF URINE BY TEST STRIP 6.5 5.0 - 9.0 09/10 Specimen Type: URINE Comment: If Glucose = >500 and Ketones are positive, please alert the Physician. Ordering Provider: TAYE CONNOLLY Report Released Date/Time: Sep 10, 2024 02:12 PM Reporting Lab: [facility] [place] [address] [address] Performing Lab: [facility] [place] [address] [address] [facility] [place] [facility] URINALYS IS CLEAN CATCH UROBILINOG EN [MASS/VOLU ME] IN URINE BY TEST STRIP Normalmg /dL <2.0 - 2.0 09/10 Specimen Type: URINE Comment: If Glucose = >500 and Ketones are positive, please alert the Physician. Ordering Provider: TAYE CONNOLLY Report Released Date/Time: Sep 10, 2024 02:12 PM Reporting Lab: [facility] [place] [address] [address] Performing Lab: [facility] [place] [address] [address] [facility] [place] [facility] URINALYS IS CLEAN CATCH LEUKOCYTE ESTERASE [PRESENCE] IN URINE BY TEST STRIP LARGE 09/10 Specimen Type: URINE Comment: If Glucose = >500 and Ketones are positive, please alert the Physician. Ordering Provider: TAYE CONNOLLY Report Released Date/Time: Sep 10, 2024 02:12 PM Reporting Lab: [facility]ITALRW[facility]ENTERTRN [facility]USE[address] [address] Performing Lab: [facility]ITALRW[facility] CENTERTRN [facility]USE[address] [address] [facility]ITALRVAUGH[facility] CENTERN [facility]ENTERUSE [facility] [employer] PIC AUTOMATE D, URINE LEUKOCYTES [#/AREA] IN URINE SEDIMENT BY MICROSCOPY HIGH POWER FIELD TNTC/[HP F] 0 - 5 09/10 Specimen Type: URINE Comment: If Glucose = >500 and Ketones are positive, please alert the Physician. Ordering Provider: TAYE CONNOLLY Report Released Date/Time: Sep 10, 2024 02:12 PM Reporting Lab: [facility]ITALRVAUGH[facility]ICAL CENTERN [facility]ENTERUSE[address] [address] Performing Lab: [facility]ITALRWALK[facility] CENTERTRN [facility]ENTERUSE[address] [address] [facility]ITALRVAUGH[facility]ION[facility] MEDICAL CENTERN [facility]ENTERUSE [facility] [employer] PIC AUTOMATE D, URINE BACTERIA [#/AREA] IN URINE SEDIMENT BY MICROSCOPY HIGH POWER FIELD 1+/[HPF] 09/10 Specimen Type: URINE Comment: If Glucose = >500 and Ketones are positive, please alert the Physician. Ordering Provider: TAYE CONNOLLY Report Released Date/Time: Sep 10, 2024 02:12 PM Reporting Lab: [facility]ITALRWALKER BAP[facility] MEDICAL CENTERTRN [facility]ENTERUSE[address] [address] Performing Lab: [facility]ITALRWALK[facility] CENTERTRN [facility] CENTERUSETS [address] [address] [facility]ITALRWALKER BAP[facility] MEDICAL CENTERTRN [facility]ENTERUSE [facility] [employer] P[employer] AUTOMATE D, URINE ERYTHROCYT ES [#/AREA] IN URINE SEDIMENT BY MICROSCOPY HIGH POWER FIELD 11-20/[H PF] 0 - 3 09/10 H Specimen Type: URINE Comment: If Glucose = >500 and Ketones are positive, please alert the Physician. Ordering Provider: TAYE CONNOLLY Report Released Date/Time: Sep 10, 2024 02:12 PM Reporting Lab: [facility] [place] [facility] [address] [facility] [address] Performing Lab: [facility] [place] [facility] [address] [facility] [address] [facility] [place] [facility] MICROSCO PIC AUTOMATE D, URINE EPITHELIAL CELLS.SQUA MOUS [#/AREA] IN URINE SEDIMENT BY MICROSCOPY HIGH POWER FIELD FEW/[HPF ] 09/10 Specimen Type: URINE Comment: If Glucose = >500 and Ketones are positive, please alert the Physician. Ordering Provider: TAYE CONNOLLY Report Released Date/Time: Sep 10, 2024 02:12 PM Reporting Lab: [facility] [place] [facility] [address] [facility] [address] Performing Lab: [facility] [place] [facility] [address] [facility] [address] [facility] TRN [facility] MICROSCO PIC AUTOMATE D, URINE LEUKOCYTE CLUMPS [#/VOLUME] IN URINE BY AUTOMATED COUNT PRESENT/ [HPF] 09/10 Specimen Type: URINE Comment: If Glucose = >500 and Ketones are positive, please alert the Physician. Ordering Provider: TAYE CONNOLLY Report Released Date/Time: Sep 10, 2024 02:12 PM Reporting Lab: [facility] [place] [facility] [address] [facility] [address] Performing Lab: [facility]ENTER[facility]ETS [address] [address] [facility] W[facility]N [facility] URINALYS IS COLOR OF URINE Light-Ye llow 09/09 Specimen Type: URINE Comment: If Glucose = >500 and Ketones are positive, please alert the Physician. Ordering Provider: TAYE CNONOLLY Report Released Date/Time: Sep 09, 2024 11:14 AM Reporting Lab: [facility] [place] [place] [facility] [address] [facility] [address] Performing Lab: [facility] [place] [address] [address] [facility] W[facility]N [facility] URINALYS IS APPEARANCE OF URINE Clear 09/09 Specimen Type: URINE Comment: If Glucose = >500 and Ketones are positive, please alert the Physician. Ordering Provider: TAYE CONNOLLY Report Released Date/Time: Sep 09, 2024 11:14 AM Reporting Lab: [facility] [place] [place] [facility] [address] [facility] [address] Performing Lab: [facility] [place] [address] [address] [facility] [place] [place] [facility] URINALYS IS GLUCOSE [MASS/VOLU ME] IN URINE Normalmg /dL 09/09 Specimen Type: URINE Comment: If Glucose = >500 and Ketones are positive, please alert the Physician. Ordering Provider: TAYE CONNOLLY Report Released Date/Time: Sep 09, 2024 11:14 AM Reporting Lab: [facility]ITALRWALKER [facility] CENTERTRN [place] [address] [address] Performing Lab: [facility] [place] [address] [address] [facility]N [place] [facility] URINALYS IS KETONES [MASS/VOLU ME] IN URINE BY TEST STRIP NEGATIVE mg/dL 09/09 Specimen Type: URINE Comment: If Glucose = >500 and Ketones are positive, please alert the Physician. Ordering Provider: TAYE CONNOLLY Report Released Date/Time: Sep 09, 2024 11:14 AM Reporting Lab: [facility]N [place] [address] [address] Performing Lab: [facility] [place] [facility] [address] [facility] [address] [facility]N [place] [facility] URINALYS IS ERYTHROCYT ES [PRESENCE] IN URINE SEDIMENT BY LIGHT MICROSCOPY NEGATIVE mg/dL 09/09 Specimen Type: URINE Comment: If Glucose = >500 and Ketones are positive, please alert the Physician. Ordering Provider: TAYE CONNOLLY Report Released Date/Time: Sep 09, 2024 11:14 AM Reporting Lab: [facility]N [place] [address] [address] Performing Lab: [facility] [place] [facility] [address] [facility] [address] [facility]OSPITALRVAUGHAN REGIONAL MEDICAL CENTERN [facility] CENTERUSE [facility] URINALYS IS PROTEIN [MASS/VOLU ME] IN URINE BY TEST STRIP NEGATIVE mg/dL 09/09 Specimen Type: URINE Comment: If Glucose = >500 and Ketones are positive, please alert the Physician. Ordering Provider: TAYE CONNOLLY Report Released Date/Time: Sep 09, 2024 11:14 AM Reporting Lab: [facility]N [place] [facility] [address] [facility] [address] Performing Lab: [facility]PITALRWALKER BAPTIST MEDICAL CENTERTRN [facility] CENTERUSETS [address] [address] [facility]N [facility]ENTERUSE [facility] URINALYS IS NITRITE [PRESENCE] IN URINE NEGATIVE mg/dL 09/09 Specimen Type: URINE Comment: If Glucose = >500 and Ketones are positive, please alert the Physician. Ordering Provider: TAYE CONNOLLY Report Released Date/Time: Sep 09, 2024 11:14 AM Reporting Lab: [facility]ITALRWALKER BAPTIST MEDICAL CENTERTRN [place] [address] [address] Performing Lab: [facility] [place]N [place] [address] [address] [facility]OS[facility]ITALN [facility] CENTERUSE [facility] URINALYS IS BILIRUBIN. TOTAL [PRESENCE] IN URINE NEGATIVE mg/dL 09/09 Specimen Type: URINE Comment: If Glucose = >500 and Ketones are positive, please alert the Physician. Ordering Provider: TAYE CONNOLLY Report Released Date/Time: Sep 09, 2024 11:14 AM Reporting Lab: [facility]ITALRWALKER BAPTIST MEDICAL CENTERTRN [place] [address] [address] Performing Lab: [facility]ITALRWALKER BAPTIST MEDICAL CENTERTRN [facility] CENTERUSETS [address] [address] [facility]ITALN [facility] CENTERUSE [facility] URINALYS IS SPECIFIC GRAVITY OF URINE BY REFRACTOME TRY 1.007 1.016 - 1.022 09/09 L Specimen Type: URINE Comment: If Glucose = >500 and Ketones are positive, please alert the Physician. Ordering Provider: TAYE CONNOLLY Report Released Date/Time: Sep 09, 2024 11:14 AM Reporting Lab: [facility] [place] [facility] [address] [facility] [address] Performing Lab: [facility] [facility] [address] [facility] [address] [facility] [place] [facility] URINALYS IS PH OF URINE BY TEST STRIP 6.0 5.0 - 9.0 09/09 Specimen Type: URINE Comment: If Glucose = >500 and Ketones are positive, please alert the Physician. Ordering Provider: TAYE CONNOLLY Report Released Date/Time: Sep 09, 2024 11:14 AM Reporting Lab: [facility] [place] [facility] [address] [facility] [address] Performing Lab: [facility] [place] [facility] [address] [facility] [address] [facility] [place] [facility] URINALYS IS UROBILINOG EN [MASS/VOLU ME] IN URINE BY TEST STRIP Normalmg /dL <2.0 - 2.0 09/09 Specimen Type: URINE Comment: If Glucose = >500 and Ketones are positive, please alert the Physician. Ordering Provider: TAYE CONNOLLY Report Released Date/Time: Sep 09, 2024 11:14 AM Reporting Lab: [facility] [place] [facility] [address] [facility] [address] Performing Lab: [facility] [place] [facility] [address] [facility] [address] [facility] [place] [facility] URINALYS IS LEUKOCYTE ESTERASE [PRESENCE] IN URINE BY TEST STRIP NEGATIVE 09/09 Specimen Type: URINE Comment: If Glucose = >500 and Ketones are positive, please alert the Physician. Ordering Provider: TAYE CONNOLLY Report Released Date/Time: Sep 09, 2024 11:14 AM Reporting Lab: [facility] [place] [facility] [address] [facility] [address] Performing Lab: [facility] [place] [facility] [address] [facility] [address] [facility] [place] [facility] LIPID PANEL FASTING CHOLESTERO L [MASS/VOLU ME] IN SERUM OR PLASMA 239 mg/dL 10/08 H Specimen Type: SERUM No comment entered. Ordering Provider: TAYE CNONOLLY Report Released Date/Time: Oct 07, 2023 03:59 PM Reporting Lab: [facility] [place] [address] [address] Performing Lab: [facility]ITALRL WSTRN [facility]ENTERUSE[address] [address] [facility]ITALRL WSTRN [facility]ENTERUSE [facility] LIPID PANEL FASTING TRIGLYCERI DE [MASS/VOLU ME] IN SERUM OR PLASMA 103 mg/dL 0 - 150 10/08 Specimen Type: SERUM No comment entered. Ordering Provider: TAYE CONNOLLY Report Released Date/Time: Oct 07, 2023 03:59 PM Reporting Lab: [facility]PITALRWALKER BAPTIST MEDICAL CENTERTRN [facility] CENTERUSE[address] [address] Performing Lab: [facility]ITALRL WSTRN [facility] CENTERUSE[address] [address] [facility]ITALRL TRN [facility]ENTERUSE [facility] LIPID PANEL FASTING CHOLESTERO L IN LDL [MASS/VOLU ME] IN SERUM OR PLASMA BY [place] N 184 mg/dL 0 - 129 10/08 H Specimen Type: SERUM No comment entered. Ordering Provider: TAYE CONNOLLY Report Released Date/Time: Oct 07, 2023 03:59 PM Reporting Lab: [facility]ITALRL [place] [place] [address] [address] Performing Lab: [facility] [place] [address] [address] [facility]ITALRL WSTRN [place] [facility] LIPID PANEL FASTING CHOLESTERO L.TOTAL/CH OLESTEROL IN HDL [MASS RATIO] IN SERUM OR PLASMA 7.0 10/08 Specimen Type: SERUM No comment entered. Ordering Provider: TAYE CONNOLLY Report Released Date/Time: Oct 07, 2023 03:59 PM Reporting Lab: [facility]ITALR WSTRN [facility] CENTERUSE[address] [address] Performing Lab: [facility]ENTERUSETS [facility] [address] [facility] [address] [facility]ITALRL WSTRN [place] [facility] LIPID PANEL FASTING CHOLESTERO L IN HDL [MASS/VOLU ME] IN SERUM OR PLASMA 34 mg/dL 40 - 60 10/08 L Specimen Type: SERUM No comment entered. Ordering Provider: TAYE CONNOLLY Report Released Date/Time: Oct 07, 2023 03:59 PM Reporting Lab: [facility]ITALRL WSTRN [facility] CENTERUSETS [address] [address] Performing Lab: [facility] [place] [facility] CENTERUSETS [address] [address] [facility]ITALRL [facility]ERN [facility]USE [facility] BASIC METABOLI C PANEL (fasting ) UREA NITROGEN [MASS/VOLU ME] IN SERUM OR PLASMA 11 mg/dL 7 - 25 10/08 Specimen Type: SERUM No comment entered. Ordering Provider: TAYE CONNOLLY Report Released Date/Time: Oct 07, 2023 03:59 PM Reporting Lab: [facility]RL [facility] [place] [address] [address] Performing Lab: [facility] [place] [facility]ENTERUSETS [address] [address] [facility]ITALRL TRN [facility]ENTERUSE [facility] BASIC METABOLI C PANEL (fasting ) GLUCOSE [MASS/VOLU ME] IN SERUM OR PLASMA 94 mg/dL 65 - 100 10/08 Specimen Type: SERUM No comment entered. Ordering Provider: TAYE CONNOLLY Report Released Date/Time: Oct 07, 2023 03:59 PM Reporting Lab: [facility]RL [facility] [place] [address] [address] Performing Lab: [facility] [place] [address] [address] [facility]ITALRL WSTRN [place] [facility] BASIC METABOLI C PANEL (fasting ) SODIUM [MOLES/VOL UME] IN SERUM OR PLASMA 137 mmol/L 135 - 145 10/08 Specimen Type: SERUM No comment entered. Ordering Provider: TAYE CONNOLLY Report Released Date/Time: Oct 07, 2023 03:59 PM Reporting Lab: [facility] [place] [address] [place] [address] Performing Lab: [facility] [place] [facility] [address] [facility] [address] [facility]ITALRL WSTRN [place] [facility] BASIC METABOLI C PANEL (fasting ) POTASSIUM [MOLES/VOL UME] IN SERUM OR PLASMA 4.0 mmol/L 3.5 - 5.0 10/08 Specimen Type: SERUM No comment entered. Ordering Provider: TAYE CONNOLLY Report Released Date/Time: Oct 07, 2023 03:59 PM Reporting Lab: [facility] [place] [facility] [address] [facility] [address] Performing Lab: [facility]ITALRL WSTRN [facility]ENTERUSETS [facility] [address] [facility] [address] [facility]OSPITALRWALKER BAPTIST MEDICAL CENTERTRN [facility]ENTERUSE [facility] BASIC METABOLI C PANEL (fasting ) CHLORIDE [MOLES/VOL UME] IN SERUM OR PLASMA 105 mmol/L 100 - 110 10/08 Specimen Type: SERUM No comment entered. Ordering Provider: TAYE CONNOLLY Report Released Date/Time: Oct 07, 2023 03:59 PM Reporting Lab: [facility]ITALRL WSTRN [facility] CENTERUSETS [address] [address] Performing Lab: [facility] [place] [facility] CENTERUSETS [address] [address] [facility]ITALRWALKER BAPTIST MEDICAL CENTERTRN [facility]ENTERUSE [facility] BASIC METABOLI C PANEL (fasting ) CARBON DIOXIDE, TOTAL [MOLES/VOL UME] IN SERUM OR PLASMA 24 meq/L 20 - 30 10/08 Specimen Type: SERUM No comment entered. Ordering Provider: TAYE CONNOLLY Report Released Date/Time: Oct 07, 2023 03:59 PM Reporting Lab: [facility]ITALRL [facility]N [place] [facility] [address] [facility] [address] Performing Lab: [facility] [address] [address] [facility]ITALRWALKER BAPTIST MEDICAL CENTERTRN [facility]ENTERUSE [facility] BASIC METABOLI C PANEL (fasting ) CREATININE [MASS/VOLU ME] IN SERUM OR PLASMA 0.82 mg/dL 0.50 - 1.40 10/08 Specimen Type: SERUM No comment entered. Ordering Provider: TAYE CONNOLLY Report Released Date/Time: Oct 07, 2023 03:59 PM Reporting Lab: [facility]ITALRL [facility] [place] [facility] [address] [facility] [address] Performing Lab: [facility] [place] [facility] [address] [facility] [address] [facility]OSPITALRVAUGHAN REGIONAL MEDICAL CENTERN [place] [facility] BASIC METABOLI C PANEL (fasting ) GLOMERULAR FILTRATION RATE/1.73 SQ M.PREDICTE D [VOLUME RATE/AREA] IN SERUM, PLASMA OR BLOOD BY CREATININE -BASED FORMULA (CKD-EPI 2020) >90mL/mi n 60 10/08 Specimen Type: SERUM No comment entered. Ordering Provider: TAYE CONNOLLY Report Released Date/Time: Oct 07, 2023 03:59 PM Reporting Lab: [facility]ITALR WSTRN [address] [address] Performing Lab: [facility]OSPITALRL TRN [facility] CENTERUSETS [address] [address] [facility]OSPITALRVAUGHAN REGIONAL MEDICAL CENTERN MASSUSE [facility] TSH THYROTROPI N [UNITS/VOL UME] IN SERUM OR PLASMA 2.12 u[IU]/mL 0.35 - 5.00 10/08 Specimen Type: SERUM No comment entered. Ordering Provider: TAYE CONNOLLY Report Released Date/Time: Oct 07, 2023 03:59 PM Reporting Lab: [facility]PITALRWALKER BAPTIST MEDICAL CENTERTRN [facility] CENTERUSE[address] [address] Performing Lab: [facility]ITALRL TRN [facility] CENTERUSETS [address] [address] [facility]OSPITALRVAUGHAN REGIONAL MEDICAL CENTERN [facility] CENTERUSE [facility] Vital Signs Combined list of inpatient and outpatient Vital Signs from Department of Defense and Veterans Affairs, ranging from 12 months to all on record, depending upon the facility. Vital Sign Value Date Comments Source SYSTOLIC BLOOD PRESSURE 110 10/07/20 24 15:38:12 [facility]ITALRVAUGHAN REGIONAL MEDICAL CENTERN [facility] DIASTOLIC BLOOD PRESSURE 73 024 15:38:12 [facility] PULSE OXIMETRY 96 10/07/2024 15:38:12 [facility] [place] [facility] WEIGHT 166 10/07/2024 15:38:12 [facility] [place] [facility] BMI 30kg/m2 10/07/2024 15:38:12 [facility] [place] [facility] PAIN 0 10/07/2024 15:38:12 [facility] [place] [facility] TEMPERATURE 98.5 10/07/2024 15:38:12 [facility] [place] [facility] PULSE 87 10/07/2024 15:38:12 [facility] [place] [facility] RESPIRATION 16 10/07/2024 15:38:12 [facility] [place] [facility] SYSTOLIC BLOOD PRESSURE 123 09/09/20 13:47:02 [facility] [place] [facility] DIASTOLIC BLOOD PRESSURE 83 024 13:47:02 [facility] [place] [facility] PULSE OXIMETRY 98 09/09/2024 13:47:02 [facility] [place] [facility] TEMPERATURE 98.4 09/09/2024 13:47:02 [facility] [place] [facility] PULSE 66 09/09/2024 13:47:02 [facility] [place] [facility] RESPIRATION 18 09/09/2024 13:47:02 [facility] [place] [facility] SYSTOLIC BLOOD PRESSURE 120 04/23/20 15:05:46 [facility] [place] [facility] DIASTOLIC BLOOD PRESSURE 83 024 15:05:46 [facility] [place] [facility] PULSE OXIMETRY 98 04/23/2024 15:05:46 [facility] [place] [facility] WEIGHT 161 04/23/2024 15:05:46 [facility] [place] [facility] BMI 30kg/m2 04/23/2024 15:05:46 [facility] [place] [facility] PAIN 6 04/23/2024 15:05:46 [facility] [place] [facility] PULSE 97 04/23/2024 15:05:46 [facility] [place] [facility] RESPIRATION 18 04/23/2024 15:05:46 [facility] Encounters Combined list of: 1) Encounters from Department of Veterans Affairs facilities going back up to thelast 18 months. 2) Encounters from the Department of Defense facilities going back up to 280 months. Location Location Details Encounter Type Encounter Number Reason For Visit Attending Provider ADM Date DC Date Status Disposition [place] [address]([facility]) OUTPATIENT [id number] 1420-VO MITING (322/57 4) RACQUEL HOLLINGSWORTH 06/23 Sick at Home/Quarter s [facility] [place] [address](T [facility]rezlan d) [place] [address]([facility], [facility]) OUTPATIENT [id number] 1220- [facility] [employer] [facility] (322/57 4) DARWIN GIL 06/28 Released w/o Limitations [facility] [place] [address](T [facility] [place]) [employer](Fam [facility] [employer]) OUTPATIENT [id number] wwe...j WOO Jernigan 03/09 Released w/o Limitations [employer](F [facility] [employer]) [employer](Opt ometry Cl EG) OUTPATIENT [id number] Eye exam... [facility] MACY STATON 09/19 Released w/o Limitations [employer](O ptometr y Cl EG) [facility]) TELE CONSULT [id number] LUISA Mancilla S 10/23 [facility]) [facility]) OUTPATIENT [id number] anxiety /Depres LUISA Ocampo S 10/25 Released w/o Limitations [facility]) [facility]) OUTPATIENT [id number] anxiety /depres GEMMA Light 10/26 Released w/o Limitations [employer]([facility]) [facility]) OUTPATIENT [id number] f/u LUISA BEACH 10/31 Released w/o Limitations [facility]) [facility] [place] [facility] En[facility] [id number] 08/17 [facility] [place] [facility] [place] En[facility] [id number] 09/29 [facility] [place] [facility] [place] [facility] OFFICE O/P NEW [place] 60-74 MIN [id number] Diagnos is: ICD-10- CM E28.2 Polycys tic ovarian syndrom e
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<br/ > Sonam FARLEY 04/23 [facility] [place] En[facility] [id number] 04/23 [facility] [place] Encounter [id number] Diagnos is: ICD-10- CM Z77.9 Oth contact w and (suspec claudia) exposur es hazardo [facility]< br/> ISHAAN ALBARADO 07/15 [facility] [place] En[facility] [id number] 08/02 [facility] [place] En[facility] [id number] 1.09/09 [facility] [place] Encounter [id number] 1.09/09 [facility] [place] OFF/OP EST MAY X REQ PHY/QHP [id number] 1. 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 Diagnos is: ICD-10- CM R30.0 Dysuria
PERLA LESLIE 09/09 [facility] En[facility] [id number] Tammy FOWLER 09/10 [facility] [place] En[facility] [id number] 09/15 [facility] Encounter [id number] 09/24 [facility] OFFICE O/P EST MOD 30 MIN [id number] Diagnos is: ICD-10- CM E28.2 Polycys tic ovarian syndrom e
FELISHA CONNOLLY NA 10/07 [facility] Outpatient Encounter [id number] RYLEE ESPITIA 11/19 [facility] Procedures Combined list of: 1) Procedures from [facility] facilities going back up to thelast 18 months, not all [place] non-surgical procedures are included; 2) All procedures from the Department of Defense facilities. Procedure Procedure Type Code Date Perfomer Comments Sourc e PREPARATION OF REPORT OF PATIENT'S PSYCHIATRIC STATUS, HISTORY, TREATMENT, OR PROGRESS (OTHER THAN FOR LEGAL OR CONSULTATIVE PURPOSES) FOR OTHER INDIVIDUALS, AGENCIES, OR INSURANCE CARRIERS 02/20/20 11 [facility] INDIVIDUAL PSYCHOTHERAPY, INSIGHT ORIENTED, BEHAVIOR MODIFYING AND/OR SUPPORTIVE, IN AN OFFICE OR OUTPATIENT FACILITY, APPROXIMATELY 45 TO 50 MINUTES SYQN-UV-[id number] WITH THE PATIENT 10/31/20 [facility] INDIVIDUAL PSYCHOTHERAPY, INSIGHT ORIENTED, BEHAVIOR MODIFYING AND/OR SUPPORTIVE, IN AN OFFICE OR OUTPATIENT FACILITY, APPROXIMATELY 20 TO 30 MINUTES [id number] WITH THE PATIENT 10/26/20 [facility] PSYCHIATRIC DIAGNOSTIC INTERVIEW EXAMINATION 10/25/20 [facility] FUNDUS PHOTOGRAPHY WITH INTERPRETATION AND REPORT 09/19/20 09 [facility] INJECTION, PROMETHAZINE HCL, UP TO 50 MG 06/23/20 08 [facility] Psychiatric Therapy Preparation of Psychiatric Status Report Psychiatric Therapy Preparation of Psychiatric Status Report [id number] 02/20/20 11 GEMMA GUTIERREZ [facility] Psychiatric Diagnostic Evaluation Review of Records and Reports Psychiatric Diagnostic Evaluation Review of Records and Reports [id number] 02/20/20 11 GEMMA GUTIERREZ [facility] Psychotherapy Individual Approximately 45 Minutes Psychotherapy Individual Approximately 45 Minutes [id number] 11/01/20 LUISA BEACH [facility] Psychotherapy Individual Approximately 45 Minutes Psychotherapy Individual Approximately 45 Minutes [id number] 10/26/20 09 GEMMA GUTIERREZ [facility] Psychiatric Diagnostic Evaluation Comprehensive Examination Psychiatric Diagnostic Evaluation Comprehensive Examination [id number] 10/25/20 09 LUISA BECAH [facility] Determination Of Refractive State Determination Of Refractive State 34433 09/21/20 09 MACY STATON [facility] Spectacles Services Fitting Monofocal Except For Aphakia Spectacles Services Fitting Monofocal Except For Aphakia 00325 09/21/20 09 YAIRCAMERONMACY Mikala SPEC FIT 3X [facility] Ophthalmological New Patient Start Comprehensive Care Ophthalmological New Patient Start Comprehensive Care [id number] 09/21/20 09 MACY STATON [facility] Social History Combined list of available smoking, tobacco, and other social history from Department of Defense and [facility] Affairs facilities. Social History Type Response Date Comment Sour e Tobacco smoking status NHIS VA-TOBACCO NEVER USED CIGARETTES 10/07/2024 [facility] [place] [facility] History of tobacco use PA-TOBACCO NEVER USED OTHER TYPE 10/07/2024 [facility] [place] [facility] History of tobacco use PA-TOBACCO FORMER USER 09/29/2023 [facility] [place] [place] [facility] This section is an empty social history section. DoD
--- OUTSIDE RECORDS SUMMARY | 2024-11-23 15:20 | XMS_ITS | Encounter Summary ---
Author Name [facility] [place] Address [address] [place] [address] Care Team Providers Care Temporary Help Agency Referral Clerk Name Role Phone QAMAR CONNOLLY Primary Care Provider Xavier ramos Selected Encounter This section includes the information on record at [place] for the Encounter. Date/Time Encounter Type Encounter Description Reason Provider Source Sep 10, 2024 08:16 AM Outpatient Encounter PRIMARY CARE/MEDICINE ADE MATA Encounter Template Text not used by [place] Plan of Treatment: Future Appointments (+ 6 months) and Future Tests (+/- 45 days) The Plan of Treatment section includes future care activities for the patient from all [place] treatmentfacilities. This section includes future appointments and future orders which are active, pending or scheduled. Future Appointments This section includes appointments that were scheduled to occur 6 months from the date of the Encounter, up to a maximum of 20 appointments. The data comes from all [place] treatment facilities. Appointment Date/Time Appointment Type Appointme nt Facility Name Oct 07, 2024 03:30 PM AMBULATORY - MEDICINE [facility] Nov 22, 2024 01:30 PM AMBULATORY - PSYCHIATRY [facility] Active, Pending, and Scheduled Orders This section includes a listing of several types of active, pending, and scheduled orders, including clinic medications orders, diagnostic test orders, procedure orders and consult orders; where the start date of the order is 45 days before the date of the Encounter or 45 days after the date of theEncounter. The data comes from all [place] treatment facilities. Test Date/Time Test Type Test Details Facility Name Sep 10, 2024 12:00 AM Laboratory - Chemistry Order URINALYSIS CLEAN CATCH URINE SP [facility] Lab Results: +/- 30 days of the encounter This section includes the Chemistry and Hematology Lab Results on record with [place] for the patient. Radiology Reports and Pathology Reports are provided separately, in subsequent sections. Lab Results This section contains the Chemistry/Hematology Results that were resulted 30 days before or 30 daysafter the date of the Encounter. Date/Time Source Result Type Result - Unit Interpretation Reference Range Comment Oct 07, 2024 08:30 AM [facility] LIPID PANEL FASTING Specimen Type: SERUM No comment entered. Ordering Provider: QAMAR CONNOLLY Report Released Date/Time: Sep 22, 2024 12:58 PM Reporting Lab: [address] [address] Performing Lab: [facility] [address] [facility] [address] CHOLESTEROL 270 mg/dL H TRIGLYCERIDE 176 mg/dL H 0-150 LDL calculated 192 mg/dL H 0-129 CHOL/HDL 6.3 HDL CHOLESTEROL 43 mg/dL 40-60 Oct 07, 2024 08:30 AM [facility] BASIC METABOLIC PANEL (fasting) Specimen Type: SERUM No comment entered. Ordering Provider: QAMAR CONNOLLY Report Released Date/Time: Sep 22, 2024 12:58 PM Reporting Lab: [facility] [address] [facility] [address] Performing Lab: [address] [address] UREA NITROGEN 13 mg/dL 7-25 GLUCOSE 92 mg/dL 65-100 SODIUM 135 mmol/L 135-145 POTASSIUM 4.2 mmol/L 3.5-5.0 CHLORIDE 103 mmol/L 100-110 CO2 23 meq/L 20-30 CREATININE, Serum 0.76 mg/dL 0.50-1.40 eGFR(CKD-EPI 2020) >90 mL/min >60 Sep 10, 2024 02:16 PM [facility] URINALYSIS CLEAN CATCH Specimen Type: URINE Comment: If Glucose = >500 and Ketones are positive, please alert the Physician. Ordering Provider: QAMAR CONNOLLY Report Released Date/Time: Sep 10, 2024 02:12 PM Reporting Lab: [address] [address] Performing Lab: [address] [address] UA COLOR Yellow Yellow UA APPEARANCE Turbid Clear UA GLUCOSE Normal mg/dL Negative UA KETONES NEGATIVE mg/dL Negative UA BLOOD NEGATIVE mg/dL Negative UA PROTEIN 20 mg/dL Negative UA NITRITE NEGATIVE mg/dL Negative UA BILIRUBIN NEGATIVE mg/dL Negative UA SPECIFIC GRAVITY 1.024 H 1.016-1.022 UA pH 6.5 5.0-9.0 UA UROBILINOGEN Normal mg/dL <2.0 UA LEUKOCYTE LARGE Negative Sep 10, 2024 02:16 PM [facility] MICROSCOPIC AUTOMATED, URINE Specimen Type: URINE Comment: If Glucose = >500 and Ketones are positive, please alert the Physician. Ordering Provider: QAMAR CONNOLLY Report Released Date/Time: Sep 10, 2024 02:12 PM Reporting Lab: [address] [address] Performing Lab: [address] [address] UA WBC TNTC /[HPF] 0-5 UA BACTERIA 1+ /[HPF] NoneObs UA RBC 11-20 /[HPF] H 0-3 UA SQUAMOUS EPITH FEW /[HPF] UA WBC CLUMPS PRESENT /[HPF] None Sep 09, 2024 11:18 AM [facility] URINALYSIS Specimen Type: URINE Comment: If Glucose = >500 and Ketones are positive, please alert the Physician. Ordering Provider: QAMAR CONNOLLY Report Released Date/Time: Sep 09, 2024 11:14 AM Reporting Lab: [address] [address] Performing Lab: [facility] [address] [facility] [address] UA COLOR Light-Yellow Yellow UA APPEARANCE Clear Clear UA GLUCOSE Normal mg/dL Negative UA KETONES NEGATIVE mg/dL Negative UA BLOOD NEGATIVE mg/dL Negative UA PROTEIN NEGATIVE mg/dL Negative UA NITRITE NEGATIVE mg/dL Negative UA BILIRUBIN NEGATIVE mg/dL Negative UA SPECIFIC GRAVITY 1.007 L 1.016-1.022 UA pH 6.0 5.0-9.0 UA UROBILINOGEN Normal mg/dL <2.0 UA LEUKOCYTE NEGATIVE Negative Social History: Smoking Status (Most current) and Tobacco Use (All prior to encounter date) This section includes the most current, and the historical, smoking and tobacco- related health factors from the [place] facility where the Encounter took place. Current Smoking Status This section includes the most current smoking, or tobacco-related health factor, from the [place] facility where the Encounter took place. Date/Time Current Smoking Status Comment Facil ity Sep 29, 2023 08:46 AM VA-TOBACCO FORMER USER [facility] Tobacco Use History This section includes a history of the smoking, or tobacco-related health factors, that were collected on or before the date of the Encounter. The data comes from the [place] facility where the Encounter took place. Date/Time Smoking Status/Tobacco Use Comment F acility Sep 29, 2023 08:46 AM [place]-TOBACCO QUIT 5 TO < 15 YRS [facility] Pathology Reports: +/- 30 days of the encounter Pathology Reports For cases when an order for pathology services may have been completed prior to the date of the Encounter, the report list includes the Pathology Reports that were completed up to 30 days before dateof the Encounter. For cases when an order for pathology services may have been completed after the date of the Encounter, the report list also includes the Pathology Reports that were completed up to30 days after date of the Encounter. The data comes from all [place] treatment facilities. Date/Time Pathology Report Provider Source Sep 09, 2024 11:18 AM LR MICROBIOLOGY RE PORT: Reporting Lab: [facility] [CLIA# [id number]] [address] [place] [address] Accession [UID]: [id number] [[id number]] Received: Sep 09, 2024@11:18 Collection sample: URINE CLEAN CATCH Collection date: Sep 09, 2024 11:18 Site/Specimen: URINE Provider: QAMAR CONNOLLY Test(s) ordered: URINE CULTURE(MWROX).......... completed: Sep 13, 2024 10:40 * BACTERIOLOGY FINAL REPORT => Sep 13, 2024 10:40 TECH CODE: [id number] Bacteriology Remark(s): <10,000 CFU/ML GRAM POSITIVE (NOT OTHERWISE SPECIFIED) =--=--=--=--=--=--=--=-- =--=--=--=--=--=--=--=-- =--=--=--=--=--=--=--=-- =--=-- Performing Laboratory: Bacteriology Report Performed By: [facility] [CLIA# [id number]] [address] [place] [id number] BRIANNA MILLIGAN [facility] Encounter Notes: All associated encounter notes This section contains the clinical notes associated to the Encounter. Date/Time Encounter Note(s) Provider Source Sep 10, 2024 08:16 AM PRIMARY CARE Free [employer] MESSAGING: LOCAL TITLE: PRIMARY CARE SECURE MESSAGING STANDARD TITLE: PRIMARY CARE SECURE MESSAGING DATE OF NOTE: SEP 10, 2024@08:16 ENTRY DATE: SEP 10, 2024@08:16:27 AUTHOR: ADE MATA EXP COSIGNER: URGENCY: STATUS: COMPLETED ------Original Message ------- Sent: 09/09/2024 10:30 AM ET From: NEY CONNOR To: Alicia CONNOLLY _ PRIMARY CARE_[facility] Subject: Appointment:UTI Good morning, I'm pretty sure that I have a uti. Is there availability to be seen today? Thank you, Ney ------Original Message ------- Sent: 09/10/2024 08:16 AM ET From: ADE MATA To: NEY CONNOR Subject: Appointment:UTI Good Morning, Thought I would check in on you and see how you are feeling today after your visit at [facility] yesterday? Respectfully, Ade Mata RN /adonay/ ADE MATA RN REGISTERED NURSE Signed: 09/10/2024 08:16 ADE MATA [facility]
--- OUTSIDE RECORDS SUMMARY | 2024-11-23 15:20 | XMS_ITS ---
Author Name [facility] [place] Address [address] [place] [address] Care Team Providers Care Compliance Vice President Name Role Phone QAMAR CONNOLLY Primary Care Provider Unavailabl e Selected Encounter This section includes the information on record at [place] for the Encounter. Date/Time Encounter Type Encounter Description Reason Pro vider Source Aug 02, 2024 09:49 AM Outpatient Encounter PRIMARY CARE/MEDICINE IHE Encounter Template Text not used by [place] Plan of Treatment: Future Appointments (+ 6 months) and Future Tests (+/- 45 days) The Plan of Treatment section includes future care activities for the patient from all [place] treatmentfacilities. This section includes future appointments and future orders which are active, pending or scheduled. Future Appointments This section includes appointments that were scheduled to occur 6 months from the date of the Encounter, up to a maximum of 20 appointments. The data comes from all [place] treatment facilities. Appointment Date/Time Appointment Type Appointme nt Facility Name Sep 09, 2024 01:30 PM AMBULATORY - [place]ICINE [place] [facility] [place] [facility] Sep 09, 2024 02:00 PM AMBULATORY - MEDICINE [place] [facility] Oct 07, 2024 03:30 PM AMBULATORY - MEDICINE [place] [facility] Nov 22, 2024 01:30 PM [facility] Active, Pending, and Scheduled Orders This section includes a listing of several types of active, pending, and scheduled orders, including clinic medications orders, diagnostic test orders, procedure orders and consult orders; where the start date of the order is 45 days before the date of the Encounter or 45 days after the date of theEncounter. The data comes from all [place] treatment facilities. Test Date/Time Test Type Test Details Facility Name Sep 10, 2024 12:00 AM Laboratory - Chemistry Order URINALYSIS CLEAN CATCH URINE SP [facility] Social History: Smoking Status (Most current) and Tobacco Use (All prior to encounter date) This section includes the most current, and the historical, smoking and tobacco- related health factors from the [place] facility where the Encounter took place. Current Smoking Status This section includes the most current smoking, or tobacco-related health factor, from the [place] facility where the Encounter took place. Date/Time Current Smoking Status Comment Facil ity Sep 29, 2023 08:46 AM [place]-TOBACCO FORMER USER [facility] Tobacco Use History This section includes a history of the smoking, or tobacco-related health factors, that were collected on or before the date of the Encounter. The data comes from the [place] facility where the Encounter took place. Date/Time Smoking Status/Tobacco Use Comment F acility Sep 29, 2023 08:46 AM [place]-TOBACCO QUIT 5 TO < 15 YRS [facility] Encounter Notes: All associated encounter notes This section contains the clinical notes associated to the Encounter. Date/Time Encounter Note(s) Provider Source Aug 02, 2024 09:49 AM PREVENTIVE MEDICIN E NURSING NOTE: LOCAL TITLE: CLINICAL REMINDERS/NURSING STANDARD TITLE: PREVENTIVE MEDICINE NURSING NOTE DATE OF NOTE: AUG 02, 2024@09:49 ENTRY DATE: AUG 02, 2024@09:49:58 AUTHOR: LONNIE PARHAM EXP COSIGNER: URGENCY: STATUS: COMPLETED F: Telephone call D: Vet requested a med refill: SPIRONOLACTONE 25MG TAB TAKE TWO TABLETS BY MOUTH ONCE DAILY FOR FLUID ACCUMULATION Advance Directive Screen MH AD: Patient does not have an Advance Directive completed and is requesting more information. The patient received education about Advance Directives and written notification of his/her rights. vet was asked to fill out Advanced diorective and asked to fill it out /adonay/ LONNIE PARHAM MSN Ed., BSN FORESTRY PROFESSOR NURSE Signed: 08/02/2024 09:57 Receipt Acknowledged By: 08/02/2024 10:12 /es/ QAMAR CONNOLLY D.O. PHYSICIAN LONNIE PARHAM [facility]
--- OUTSIDE RECORDS SUMMARY | 2024-11-23 15:20 | XMS_ITS ---
Author Name [facility] [place] Organization [place] Address [address] [place] [address] Care Team Providers Care Crap Shooter Name Role Phone QAMAR CONNOLLY Primary Care Provider Unavailabl e Selected Encounter This section includes the information on record at [place] for the Encounter. Date/Time Encounter Type Encounter Description Reason Provider Source March 22, 2024 10:15 AM Outpatient Encounter PRIMARY CARE/MEDICINE AMARILIS JAMIL Encounter Template Text not used by [place] Plan of Treatment: Future Appointments (+ 6 months) and Future Tests (+/- 45 days) The Plan of Treatment section includes future care activities for the patient from all [place] treatmentfacilities. This section includes future appointments and future orders which are active, pending or scheduled. Future Appointments This section includes appointments that were scheduled to occur 6 months from the date of the Encounter, up to a maximum of 20 appointments. The data comes from all [place] treatment facilities. Appointment Date/Time Appointment Type Appointme nt Facility Name Apr 23, 2024 03:00 PM AMBULATORY - MEDICINE [facility] [place] [facility] Apr 23, 2024 03:01 PM AMBULATORY - MEDICINE [place] [facility] [place] [place] [facility] Sep 09, 2024 01:30 PM AMBULATORY - MEDICINE [facility] [facility] Sep 09, 2024 02:00 PM [facility] Social History: Smoking Status (Most current) and Tobacco Use (All prior to encounter date) This section includes the most current, and the historical, smoking and tobacco- related health factors from the [place] facility where the Encounter took place. Current Smoking Status This section includes the most current smoking, or tobacco-related health factor, from the [place] facility where the Encounter took place. Date/Time Current Smoking Status Comment Lilliam ity Sep 29, 2023 08:46 AM VA-TOBACCO FORMER USER [facility] Tobacco Use History This section includes a history of the smoking, or tobacco-related health factors, that were collected on or before the date of the Encounter. The data comes from the [place] facility where the Encounter took place. Date/Time Smoking Status/Tobacco Use Comment F acility Sep 29, 2023 08:[address] [place]-TOBACCO QUIT 5 TO < 15 YRS [facility] Encounter Notes: All associated encounter notes This section contains the clinical notes associated to the Encounter. Date/Time Encounter Note(s) Provider Source March 23, 2024 03:39 PM ADDENDUM: LOCAL TITLE: Addendum STANDARD TITLE: ADDENDUM DATE OF NOTE: MARCH 23, 2024@15:39:57 ENTRY DATE: MARCH 23, 2024@15:39:58 AUTHOR: QAMAR CONNOLLY EXP COSIGNER: URGENCY: STATUS: COMPLETED i renewed med. ok to place consult for provider listed. thanks /adonay/ QAMAR CONNOLLY D.O. PHYSICIAN Signed: 03/23/2024 15:40 Receipt Acknowledged By: 03/24/2024 11:58 /adonay/ MJ FOWLER RN REGISTERED NURSE === --- Original Document --- 03/22/24 PRIMARY CARE SECURE MESSAGING: ------Original Message ------ Sent: 03/19/2024 04:24 PM ET From: NEY CONNOR HEMALATHA To: Alicia CONNOLLY _ PRIMARY CARE_[facility] Subject: Medication:Refill Hi could I please have a refill on my spironolactone? Also wondering about mental health services. I have been. Toby a provider at [facility] but she is leaving [facility] and going to be working at the [employer]. Would I have to switch VAs to see her still? 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 Thanks, Ney Connor [phone] ------Original Message ------ Sent: 03/22/2024 11:15 AM ET From: AMARILIS JAMIL To: GEETA, NEYSonam PENNY Subject: Medication:Refill Good morning, I will forward along your request to your team. Respectfully, Amarilis Jamil RN /adonay/ AMARILIS JAMIL REGISTERED NURSE Signed: 03/22/2024 11:15 Receipt Acknowledged By: 03/23/2024 15:39 /es/ QAMAR CONNOLLY D.O. PHYSICIAN 03/22/2024 14:20 /adonay/ MJ FOWLER RN REGISTERED NURSE 03/22/2024 ADDENDUM STATUS: COMPLETED reports she has been seeing Psychologist Joe out in the community ( a place called [facility] out of [facility]) for talk thereapy. This Psychologist has now accepted a position at the [place] in [place], she will be at the [facility] effective 03/31/24. 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 would like to know if consult can be placed for mental health services through the [facility]. ALERT TO PCP for consideration of consult for [facility] in [place] for mental health. /trinidad FOWLER RN REGISTERED NURSE Signed: 03/22/2024 14:23 03/22/2024 ADDENDUM STATUS: COMPLETED ALERT TO PCP for consideration of renewal of Spironolactone as well as consult of MH as noted below /trinidad FOWLER RN REGISTERED NURSE Signed: 03/22/2024 14:38 03/24/2024 ADDENDUM STATUS: COMPLETED consult placed as requested, held for signature /adonay/ MJ FOWLER, RN REGISTERED NURSE Signed: 03/24/2024 11:[address] [facility] [place] [facility] March 22, 2024 10:15 AM PRIMARY CARE SECURE MESSAGING: LOCAL TITLE: PRIMARY CARE SECURE MESSAGING STANDARD TITLE: PRIMARY CARE SECURE MESSAGING DATE OF NOTE: MARCH 22, 2024@10:15 ENTRY DATE: MARCH 22, 2024@11:15:11 AUTHOR: AMARILIS JAMIL EXP COSIGNER: URGENCY: STATUS: COMPLETED PRIMARY CARE SECURE MESSAGING Has ADDENDA ------Original Message ------ Sent: 03/19/2024 04:24 PM ET From: NEY CONNOR To: CATHLEEN _ PRIMARY CARE_[facility] Subject: Medication:Refill Hi could I please have a refill on my spironolactone? Also wondering about mental health services. I have been. Toby a provider at [facility] but she is leaving [facility] and going to be working at the [employer]. Would I have to switch VAs to see her still? 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 Thanks, Ney Connor [phone] ------Original Message ------ Sent: 03/22/2024 11:15 AM ET From: AMARILIS JAMIL To: NEY CONNOR Subject: Medication:Refill Good morning, I will forward along your request to your team. Respectfully, Amarilis Jamil RN /adonay/ AMARILIS JAMIL REGISTERED NURSE Signed: 03/22/2024 11:15 Receipt Acknowledged By: 03/23/2024 15:39 /adonay/ Ariadne LEWISO. PHYSICIAN 03/22/2024 14:20 /adonay/ MJ FOWLER, RN REGISTERED NURSE 03/22/2024 ADDENDUM STATUS: COMPLETED reports she has been seeing Psychologist Joe out in the community ( a place called [facility] out of [facility]) for talk thereapy. This Psychologist has now accepted a position at the [place] in [place], she will be at the [facility] effective 03/31/24. 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 Kevil would like to know if consult can be placed for mental health services through the [facility]. ALERT TO PCP for consideration of consult for [facility] in [place] for mental health. /adonay/ MJ FOWLER RN REGISTERED NURSE Signed: 03/22/2024 14:23 03/22/2024 ADDENDUM STATUS: COMPLETED ALERT TO PCP for consideration of renewal of Spironolactone as well as consult of MH as noted below /trinidad FOWLER RN REGISTERED NURSE Signed: 03/22/2024 14:38 03/23/2024 ADDENDUM STATUS: COMPLETED i renewed med. ok to place MH consult for provider listed. thanks /adonay/ QAMAR CONNOLLY D.O. PHYSICIAN Signed: 03/23/2024 15:40 Receipt Acknowledged By: 03/24/2024 11:58 /trinidad FOWLER RN REGISTERED NURSE 03/24/2024 ADDENDUM STATUS: COMPLETED consult placed as requested, held for signature /trinidad FOWLER RN REGISTERED NURSE Signed: 03/24/2024 11:[address] [facility]
--- OUTSIDE RECORDS SUMMARY | 2024-11-23 15:20 | XMS_ITS ---
Author Name [facility] [place] [facility] [place] Address [address] [place] [address] Care Team Providers Care Microstrategy Architect Name Role Phone QAMAR CONNOLLY Primary Care Provider Unavailabl e Selected Encounter This section includes the information on record at [place] for the Encounter. Date/Time Encounter Type Encounter Description Reason Pro vider Source Apr 23, 2024 03:01 PM Outpatient Encounter PRIMARY CARE/MEDICINE IHE Encounter Template Text not used by [place] Plan of Treatment: Future Appointments (+ 6 months) and Future Tests (+/- 45 days) The Plan of Treatment section includes future care activities for the patient from all [place] treatmentfacilities. This section includes future appointments and future orders which are active, pending or scheduled. Future Appointments This section includes appointments that were scheduled to occur 6 months from the date of the Encounter, up to a maximum of 20 appointments. The data comes from all [place] treatment facilities. Appointment Date/Time Appointment Type Appointme nt Facility Name Sep 09, 2024 01:30 PM AMBULATORY - MEDICINE [place] [facility] [place] [facility] Sep 09, 2024 02:00 PM AMBULATORY - MEDICINE [place] [facility] [facility] Oct 07, 2024 03:30 PM [facility] Vital Signs: All taken on the encounter date This section contains inpatient and outpatient Vital Signs collected on the date of the Encounter. Date/Time Temperature Pulse Blood Pressure Respiratory Rate SP02 Pain Height Weight Body Mass Index Source Apr 23, 2024 03:10 PM 99.3 [facility] Apr 23, 2024 03:05 PM 97 120/83 18 98 6 161 30 [facility] Social History: Smoking Status (Most current) and Tobacco Use (All prior to encounter date) This section includes the most current, and the historical, smoking and tobacco- related health factors from the [place] facility where the Encounter took place. Current Smoking Status This section includes the most current smoking, or tobacco-related health factor, from the [place] facility where the Encounter took place. Date/Time Current Smoking Status Comment Facil ity Sep 29, 2023 08:46 AM [place]-TOBACCO FORMER USER [facility] Tobacco Use History This section includes a history of the smoking, or tobacco-related health factors, that were collected on or before the date of the Encounter. The data comes from the [place] facility where the Encounter took place. Date/Time Smoking Status/Tobacco Use Comment F acility Sep 29, 2023 08:46 AM [place]-TOBACCO QUIT 5 TO < 15 YRS [facility] Encounter Notes: All associated encounter notes This section contains the clinical notes associated to the Encounter. Date/Time Encounter Note(s) Provider Source Apr 23, 2024 03:02 PM PRIMARY CARE NURSE PRACTITIONER OUTPATIENT NOTE: LOCAL TITLE: NURSE PRACTITIONER OUTPATIENT NOTE STANDARD TITLE: PRIMARY CARE NURSE PRACTITIONER OUTPATIENT NOTE DATE OF NOTE: APR 23, 2024@15:02 ENTRY DATE: APR 23, 2024@15:02:51 AUTHOR: CINTHIA LENZ COSIGNER: URGENCY: STATUS: COMPLETED Sick Call Progress Note CC: LLQ pain HPI: Patient has a hx of diverticulitis. She has had it twice and does not recall eating anything that would have exacerbated her bowels. She has a low- grade fever and is diaphoretic. 5/10 LLQ pain that comes and goes. Presenting the same as the past two episodes. She is requesting an antibiotic. 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 WNL except CRP slightly elevated at 1.71. ROS: No CP, SOB Active Medical Problems: Active problems - Computerized Problem List is the source for the followin. Polycystic Ovary (SCT [id number]) on spironolactone and tretinoin 2. Chronic Post-Traumatic Stress Disorder ([facility] [id number]) 3. 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 Myopia refractive error - myopia 5. Dry eyes dry eye syndrome both eyes 6. Depression 7. Regular astigmatism 8. Closed fracture of metatarsal bone Closed nondisplaced fracture of fourth metatarsal bone of left foot 9. Hypercholesterolemia 10. Diverticulitis has had colonoscopy Meds: Active Outpatient Medications (including Supplies): CIPROFLOXACIN HCL 500MG TAB TAKE ONE TABLET BY MOUTH EVERY PENDING 12 HOURS FOR INFECTION METRONIDAZOLE 500MG TAB TAKE ONE TABLET BY MOUTH EVERY 8 PENDING HOURS FOR INFECTION SPIRONOLACTONE 25MG TAB TAKE TWO TABLETS BY MOUTH ONCE ACTIVE DAILY FOR FLUID ACCUMULATION Non-VA AMPHETAMINE/DEXTROAMPHET 10MG SA CAP 20MG BY MOUTH ACTIVE ONCE DAILY Non-VA BUPROPION HCL 300MG 24HR SA TAB 300MG BY MOUTH ONCE ACTIVE DAILY Non-VA PROPRANOLOL HCL 10MG TAB 10MG BY MOUTH ONCE DAILY ACTIVE Allergies: CONCERTA Physical Exam: Wt: 161 lb [73.03 kg] (04/23/2024 15:05) Date Vital Measurement Qualifiers 04/23/2024 15:10 Temp F (C) 99.3 (37.4) 04/23/2024 15:05 Pulse 97 Respir 18 BP 120/83 Wt lbs (kg)[BMI] 161 (73.03)[30*] Pain 6 POx (L/Min)(%) 98 At Rest Data: GENERAL ill appearing, diaphoretic RESP clear to auscultation bilaterally CV RR S1 S2 No m/r/g (-) Pedal Edema GI BS + x 4,LLQ tender to deep palpation otherwise soft, nondistended, no rebound or guarding MENTAL A&Ox3 Appropriate, Pleasant, Cooperative A/P: Diverticulitis: Ciprofloxacin 500 mg BID and METRONIDAZOLE TAB 500MG q8 hrs. x 10 days. She is aware of what foods she needs to avoid. Advised to eat more yogurt to help prevent yeast infection. Medication Reconciliation: Outpatient: Has the patient been taking medications as documented in the EMLR? YES: The patient has been taking medications as documented in the EMLR. Essential Medication List for Review used to complete this medication reconciliation. INCLUDED IN THIS LIST: Alphabetical list of active outpatient prescriptions dispensed from this [place] (local) and dispensed from another [place] or [place]D facility (remote) as well as inpatient orders (local, pending and active), local clinic medications, locally documented non-VA medications, and local prescriptions that have or been discontinued in the past 90 days. - All changes in medications, including all non-VA/Herbal/OTC medications were entered into CPRS. - If there were any medications the patient should no longer take, they were discontinued. - The patient/caregiver was instructed to update this list, discard old lists, and take this list to the next appointment, whether with a VA or non-VA provider. /adonay/ CINTHIA LENZ [facility] NURSE PRACTITIONER Signed: 04/23/2024 15:28 [facility]INTH[facility]ENZ [facility]
--- OUTSIDE RECORDS SUMMARY | 2024-11-23 15:20 | XMS_ITS | Encounter Summary ---
Author Name [facility] [place] [facility] [place] Address [address] [place] [address] Care Team Providers Care Electro Plater Name Role Phone QAMAR CONNOLLY Primary Care Provider Unavailabl e Selected Encounter This section includes the information on record at [place] for the Encounter. Date/Time Encounter Type Encounter Description Reason Provider Source Apr 23, 2024 03:00 PM OFF/OP EST MARCH X REQ PHY/QHP PRIMARY CARE/MEDICINE ICD-10-CM Z71.89 Other specified counseling MARCELO FARLEY [facility] Encounter Template Text not used by [place] Assessments - Encounter Diagnoses This section includes the primary and secondary diagnoses documented for the Encounter. Date/Time Primary/Secondary Diagnosis Diagnosis Name Provider Source Apr 23, 2024 03:17 PM PRIMARY Other specified counseling MARCELO FARLEY [facility] Plan of Treatment: Future Appointments (+ 6 months) and Future Tests (+/- 45 days) The Plan of Treatment section includes future care activities for the patient from all [place] treatmentfacilities. This section includes future appointments and future orders which are active, pending or scheduled. Future Appointments This section includes appointments that were scheduled to occur 6 months from the date of the Encounter, up to a maximum of 20 appointments. The data comes from all [place] treatment facilities. Appointment Date/Time Appointment Type Appointme nt Facility Name Sep 09, 2024 01:30 PM AMBULATORY - MEDICINE [facility] NTR [facility] Sep 09, 2024 02:00 PM AMBULATORY - MEDICINE [facility] N[facility]L [facility] Oct 07, 2024 03:30 PM AMBULATORY - MEDICINE [facility] Vital Signs: All taken on the encounter date This section contains inpatient and outpatient Vital Signs collected on the date of the Encounter. Date/Time Temperature Pulse Blood Pressure Respiratory Rate SP02 Pain Height Weight Body Mass Index Source Apr 23, 2024 03:10 PM [facility] Apr 23, 2024 03:05 PM 97 120/83 18 98 6 161 30 [facility] Social History: Smoking Status (Most current) and Tobacco Use (All prior to encounter date) This section includes the most current, and the historical, smoking and tobacco- related health factors from the [place] facility where the Encounter took place. Current Smoking Status This section includes the most current smoking, or tobacco-related health factor, from the [place] facility where the Encounter took place. Date/Time Current Smoking Status Comment Facil ity Sep 29, 2023 08:46 AM [place]-TOBACCO FORMER USER [facility] Tobacco Use History This section includes a history of the smoking, or tobacco-related health factors, that were collected on or before the date of the Encounter. The data comes from the [place] facility where the Encounter took place. Date/Time Smoking Status/Tobacco Use Comment F acility Sep 29, 2023 08:46 AM VA-TOBACCO QUIT 5 TO < 15 YRS [facility] Encounter Notes: All associated encounter notes This section contains the clinical notes associated to the Encounter. Date/Time Encounter Note(s) Provider Source Apr 23, 2024 03:09 PM PRIMARY CARE OUTPA TIENT NOTE: LOCAL TITLE: AMBULATORY/OUTPATIENT CARE NOTE STANDARD TITLE: PRIMARY CARE OUTPATIENT NOTE DATE OF NOTE: APR 23, 2024@15:09 ENTRY DATE: APR 23, 2024@15:09:58 AUTHOR: MARIA LUZ FARLEY COSIGNER: URGENCY: STATUS: COMPLETED F: left side abdomen pain D&A: Pt with PMHX of Polycystic ovaries presents to Sick Call endorsing pain on the left side of abdomen since this morning. Pt states pain is intermittent states feels like there is gas in there. Painful to touch and with some movements. Pt does not get her menses, she has an IUD in place. No concerns sexually with her partner. Denies being , fever/chills, no vomiting, has regular BM's. Does endorse some nausea. Denies any radiation of pain to her back. Pt did do some labs on herself, in which she has brought to show the [facility] for reviewing. R: To be evaluated by Sick call [facility] Blood Pressure: 120/83 (04/23/2024 15:05) Pain: 6 (04/23/2024 15:05) Patient Height: 62 in [157.5 cm] (10/07/2023 14:51) Patient Weight: 161 lb [73.03 kg] (04/23/2024 15:05) Pulse: 97 (04/23/2024 15:05) Respiration: 18 (04/23/2024 15:05) Temperature: 99.3 F [37.4 C] (04/23/2024 15:10) /adonay/ MARIA LUZ FARLEY Registered Nurse Signed: 04/23/2024 15:17 MARIA LUZ FARLEY [place] [facility]
--- OUTSIDE RECORDS SUMMARY | 2024-11-23 15:20 | XMS_ITS | Encounter Summary ---
Author Name [facility] [place] Organization [place] Address [address] [place] [address] Care Team Providers Care Managed Care Director Name Role Phone QAMAR CONNOLLY Primary Care Provider Unavailabl e Selected Encounter This section includes the information on record at [place] for the Encounter. Date/Time Encounter Type Encounter Description Reason Pro vider Source Sep 09, 2024 01:26 PM Outpatient Encounter TELEPHONE PRIMARY CARE IHE Encounter Template Text not used by [place] Plan of Treatment: Future Appointments (+ 6 [...] 07, 2024 03:30 PM AMBULATORY - MEDICINE [facility] Nov 22, 2024 01:30 PM AMBULATORY - PSYCHIATRY [facility] Active, Pending, and Scheduled Orders This section includes a listing of several types of active, pending, and scheduled orders, including clinic medications orders, diagnostic test orders, procedure orders and consult orders; where the start date of the order is 45 days before the date of the Encounter or 45 days after the date of theEncounter. The data comes from all [place] treatment facilities. Test Date/Time Test Type Test Details Facility Name Sep 10, 2024 12:00 AM Laboratory - Chemistry Order URINALYSIS CLEAN CATCH URINE SP [facility] Lab Results: +/- 30 days of the encounter This section includes the Chemistry and Hematology Lab Results on record with [place] for the patient. Radiology Reports and Pathology Reports are provided separately, in subsequent sections. Lab Results This section contains the Chemistry/Hematology Results that were resulted 30 days before or 30 daysafter the date of the Encounter. Date/Time Source Result Type Result - Unit Interpretation Reference Range Comment Oct 07, 2024 08:30 AM [facility] LIPID PANEL FASTING Specimen Type: SERUM No comment entered. Ordering Provider: QAMAR CONNOLLY Report Released Date/Time: Sep 22, 2024 12:58 PM Reporting Lab: [facility] [address] [facility] [address] Performing Lab: [facility] [address] [facility] [address] CHOLESTEROL 270 mg/dL H TRIGLYCERIDE 176 mg/dL H 0-150 LDL calculated 192 mg/dL H 0-129 CHOL/HDL 6.3 HDL CHOLESTEROL 43 mg/dL 40-60 Oct 07, 2024 08:30 AM [facility] BASIC METABOLIC PANEL (fasting) Specimen Type: SERUM No comment entered. Ordering Provider: QAMAR CONNOLLY Report Released Date/Time: Sep 22, 2024 12:58 PM Reporting Lab: [facility] [address] [facility] [address] Performing Lab: [address] [address] UREA NITROGEN 13 mg/dL 7-25 GLUCOSE 92 mg/dL 65-100 SODIUM 135 mmol/L 135-145 POTASSIUM 4.2 mmol/L 3.5-5.0 CHLORIDE 103 mmol/L 100-110 CO2 23 meq/L 20-30 CREATININE, Serum 0.76 mg/dL 0.50-1.40 eGFR(CKD-EPI 2020) >90 mL/min >60 Sep 10, 2024 02:16 PM [facility] URINALYSIS CLEAN CATCH Specimen Type: URINE Comment: If Glucose = >500 and Ketones are positive, please alert the Physician. Ordering Provider: QAMAR CONNOLLY Report Released Date/Time: Sep 10, 2024 02:12 PM Reporting Lab: [address] [address] Performing Lab: [address] [address] UA COLOR Yellow Yellow UA APPEARANCE Turbid Clear UA GLUCOSE Normal mg/dL Negative UA KETONES NEGATIVE mg/dL Negative UA BLOOD NEGATIVE mg/dL Negative UA PROTEIN 20 mg/dL Negative UA NITRITE NEGATIVE mg/dL Negative UA BILIRUBIN NEGATIVE mg/dL Negative UA SPECIFIC GRAVITY 1.024 H 1.016-1.022 UA pH 6.5 5.0-9.0 UA UROBILINOGEN Normal mg/dL <2.0 UA LEUKOCYTE LARGE Negative Sep 10, 2024 02:16 PM [facility] MICROSCOPIC AUTOMATED, URINE Specimen Type: URINE Comment: If Glucose = >500 and Ketones are positive, please alert the Physician. Ordering Provider: QAMAR CONNOLLY Report Released Date/Time: Sep 10, 2024 02:12 PM Reporting Lab: [address] [address] Performing Lab: [address] [address] UA WBC TNTC /[HPF] 0-5 UA BACTERIA 1+ /[HPF] NoneObs UA RBC 11-20 /[HPF] H 0-3 UA SQUAMOUS EPITH FEW /[HPF] UA WBC CLUMPS PRESENT /[HPF] None Sep 09, 2024 11:18 AM [facility] URINALYSIS Specimen Type: URINE Comment: If Glucose = >500 and Ketones are positive, please alert the Physician. Ordering Provider: QAMAR CONNOLLY Report Released Date/Time: Sep 09, 2024 11:14 AM Reporting Lab: [address] [address] Performing Lab: [address] [place] [address] UA COLOR Light-Yellow Yellow UA APPEARANCE Clear Clear UA GLUCOSE Normal mg/dL Negative UA KETONES NEGATIVE mg/dL Negative UA BLOOD NEGATIVE mg/dL Negative UA PROTEIN NEGATIVE mg/dL Negative UA NITRITE NEGATIVE mg/dL Negative UA BILIRUBIN NEGATIVE mg/dL Negative UA SPECIFIC GRAVITY 1.007 L 1.016-1.022 UA pH 6.0 5.0-9.0 UA UROBILINOGEN Normal mg/dL <2.0 UA LEUKOCYTE NEGATIVE Negative Vital Signs: All taken on the encounter date This section contains inpatient and outpatient Vital Signs collected on the date of the Encounter. Date/Time Temperature Pulse Blood Pressure Respiratory Rate SP02 Pain Height Weight Body Mass Index Source Sep 09, 2024 01:47 PM 98.4 66 123/83 18 98 [facility] Social History: Smoking Status (Most current) [...] Facil ity Sep 29, 2023 08:46 AM [place]-TOBACCO FORMER USER [facility] Tobacco Use History This section includes a history of the smoking, or tobacco-related health factors, that were collected on or before the date of the Encounter. The data comes from the [place] facility where the Encounter took place. Date/Time Smoking Status/Tobacco Use Comment F acility Sep 29, 2023 08:46 AM [place]-TOBACCO QUIT 5 TO < 15 YRS [facility] Pathology Reports: +/- 30 days of the [...] the Encounter. The data comes from all [place] treatment facilities. Date/Time Pathology Report Provider Source Sep 09, 2024 11:18 AM LR MICROBIOLOGY RE PORT: Reporting Lab: [facility] [CLIA# [id number]] [address] [place] [address] Accession [UID]: [id number] [[id number]] Received: Sep 09, 2024@11:18 Collection sample: URINE CLEAN CATCH Collection date: Sep 09, 2024 11:18 Site/Specimen: URINE Provider: QAMAR CONNOLLY Test(s) ordered: URINE CULTURE(MWROX).......... completed: Sep 13, 2024 10:40 * BACTERIOLOGY FINAL REPORT => Sep 13, 2024 10:40 TECH CODE: [id number] Bacteriology Remark(s): <10,000 CFU/ML GRAM POSITIVE (NOT OTHERWISE SPECIFIED) =--=--=--=--=--=--=--=-- =--=--=--=--=--=--=--=-- =--=--=--=--=--=--=--=-- =--=-- Performing Laboratory: Bacteriology Report Performed By: [facility] [CLIA# [id number]] [address] [place] [address] BRIANNA MILLIGAN [facility] Encounter Notes: All associated encounter notes This section contains the clinical notes associated to the Encounter. Date/Time Encounter Note(s) Provider Source Sep 09, 2024 01:26 PM NURSING NOTE: LOCAL TITLE: NURSING NOTE STANDARD TITLE: NURSING NOTE DATE OF NOTE: SEP 09, 2024@13:26 ENTRY DATE: SEP 09, 2024@13:26:34 AUTHOR: MJ FOWLER EXP COSIGNER: URGENCY: STATUS: COMPLETED NOTE TO FAVIO, will need PAP at upcoming appt with PCP on 10/07/24, will require 1 hr appt /adonay/ MJ FOWLER RN REGISTERED NURSE Signed: 09/09/2024 13:27 Receipt Acknowledged By: 09/09/2024 13:54 /adonay/ MJ BRADSHAW [facility]
--- OUTSIDE RECORDS SUMMARY | 2024-11-23 15:20 | XMS_ITS ---
Author Name [place] Address [address] [place] [address] Care Team Providers Care Shoe Salesperson Name Role Phone QAMAR CONNOLLY Primary Care Provider Unavailabl e Selected Encounter This section includes the information on record at [place] for the Encounter. Date/Time Encounter Type Encounter Description Reason Provider Source Jul 15, 2024 09:48 AM Outpatient Encounter OCCUPATIONAL HEALTH ICD-10-CM Z77.9 Oth contact w and (suspected) exposures hazardous to health SUHAS ALBARADO [facility] Encounter Template Text not used by [place] Assessments - Encounter Diagnoses This section includes the primary and secondary diagnoses documented for the Encounter. Date/Time Primary/Secondary Diagnosis Diagnosis Name Provider Source Jul 16, 2024 02:17 PM PRIMARY Oth contact w and (suspected) exposures hazardous to health SUHAS ALBARADO [facility] Plan of Treatment: Future Appointments (+ 6 months) and Future Tests (+/- 45 days) The Plan of Treatment section includes future care activities for the patient from all [place] treatmentfacilities. This section includes future appointments and future orders which are active, pending or scheduled. Future Appointments This section includes appointments that were scheduled to occur 6 months from the date of the Encounter, up to a maximum of 20 appointments. The data comes from all [place] treatment facilities. Appointment Date/Time Appointment Type Appointme nt Facility Name Sep 09, 2024 01:30 PM AMBULATORY - MEDICINE [facility] Sep 09, 2024 02:00 PM [facility] Oct 07, 2024 03:30 PM [facility] Nov 22, 2024 01:30 PM AMBULATORY - PSYCHIATRY [facility] Social History: Smoking Status (Most current) and Tobacco Use (All prior to encounter date) This section includes the most current, and the historical, smoking and tobacco- related health factors from the [place] facility where the Encounter took place. Current Smoking Status This section includes the most current smoking, or tobacco-related health factor, from the [place] facility where the Encounter took place. Date/Time Current Smoking Status Comment Facil ity Sep 29, 2023 08:46 AM [place]-TOBACCO FORMER USER [facility] Tobacco Use History This section includes a history of the smoking, or tobacco-related health factors, that were collected on or before the date of the Encounter. The data comes from the [place] facility where the Encounter took place. Date/Time Smoking Status/Tobacco Use Comment F acility Sep 29, 2023 08:46 AM VA-TOBACCO QUIT 5 TO < 15 YRS [facility] Encounter Notes: All associated encounter notes This section contains the clinical notes associated to the Encounter. Date/Time Encounter Note(s) Provider Source Jul 15, 2024 09:48 AM OCCUPATIONAL MEDIC INE NOTE: LOCAL TITLE: EMPLOYEE HEALTH VISIT STANDARD TITLE: OCCUPATIONAL MEDICINE NOTE DATE OF NOTE: JUL 15, 2024@09:48 ENTRY DATE: JUL 15, 2024@09:48:20 AUTHOR: SUHAS ALBARADO EXP COSIGNER: URGENCY: STATUS: COMPLETED You may not VIEW this COMPLETED EMPLOYEE HEALTH VISIT. SUAHS ALBARADO [facility]
--- OUTSIDE RECORDS SUMMARY | 2024-11-23 15:20 | XMS_ITS ---
Author Name [facility] [facility] Address [address] [place] [address] Care Team Providers Care Screening Unit Registered Nurse Name Role Phone QAMAR CONNOLLY Primary Care Provider Unavailabl e Selected Encounter This section includes the information on record at [place] for the Encounter. Date/Time Encounter Type Encounter Description Reason Provider Source Sep 09, 2024 02:00 PM OFFICE O/P EST LOW 20 MIN PRIMARY CARE/MEDICINE ICD-10-CM R30.0 Dysuria KYLEE LESLIE [facility] Encounter Template Text not used by [place] Assessments - Encounter Diagnoses This section includes the primary and secondary diagnoses documented for the Encounter. Date/Time Primary/Secondary Diagnosis Diagnosis Name Provider Source Sep 09, 2024 02:25 PM PRIMARY [facility] Plan of Treatment: Future Appointments (+ 6 months) and Future Tests (+/- 45 days) The Plan of Treatment section includes future care activities for the patient from all [place] treatmentfacilities. This section includes future appointments and future orders which are active, pending or scheduled. Future Appointments This section includes appointments that were scheduled to occur 6 months from the date of the Encounter, up to a maximum of 20 appointments. The data comes from all [place] treatment facilities. Appointment Date/Time Appointment Type Appointme nt Facility Name Oct 07, 2024 03:30 PM [facility] Nov 22, 2024 01:30 PM AMBULATORY - PSYCHIATRY [facility] Active, Pending, and Scheduled Orders This section includes a listing of several types of active, pending, and scheduled orders, including clinic medications orders, diagnostic test orders, procedure orders and consult orders; where the start date of the order is 45 days before the date of the Encounter or 45 days after the date of theEncounter. The data comes from all [place] treatment facilities. Test Date/Time Test Type Test Details Facility Name Sep 10, 2024 12:00 AM Laboratory - Chemistry Order URINALYSIS CLEAN CATCH URINE SP [facility] Lab Results: +/- 30 days of the encounter This section includes the Chemistry and Hematology Lab Results on record with [place] for the patient. Radiology Reports and Pathology Reports are provided separately, in subsequent sections. Lab Results This section contains the Chemistry/Hematology Results that were resulted 30 days before or 30 daysafter the date of the Encounter. Date/Time Source Result Type Result - Unit Interpretation Reference Range Comment Oct 07, 2024 08:30 AM [facility] LIPID PANEL FASTING Specimen Type: SERUM No comment entered. Ordering Provider: QAMAR CONNOLLY Report Released Date/Time: Sep 22, 2024 12:58 PM Reporting Lab: [address] [address] Performing Lab: [address] [address] CHOLESTEROL 270 mg/dL H TRIGLYCERIDE 176 mg/dL H 0-150 LDL calculated 192 mg/dL H 0-129 CHOL/HDL 6.3 HDL CHOLESTEROL 43 mg/dL 40-60 Oct 07, 2024 08:30 AM [facility] BASIC METABOLIC PANEL (fasting) Specimen Type: SERUM No comment entered. Ordering Provider: QAMAR CONNOLLY Report Released Date/Time: Sep 22, 2024 12:58 PM Reporting Lab: [address] [phone] Performing Lab: [address] [address] UREA NITROGEN 13 mg/dL 7-25 GLUCOSE 92 mg/dL 65-100 SODIUM 135 mmol/L 135-145 POTASSIUM 4.2 mmol/L 3.5-5.0 CHLORIDE 103 mmol/L 100-110 CO2 23 meq/L 20-30 CREATININE, Serum 0.76 mg/dL 0.50-1.40 eGFR(CKD-EPI 2020) >90 mL/min >60 Sep 10, 2024 02:16 PM [facility] URINALYSIS CLEAN CATCH Specimen Type: URINE Comment: If Glucose = >500 and Ketones are positive, please alert the Physician. Ordering Provider: QAMAR CONNOLLY Report Released Date/Time: Sep 10, 2024 02:12 PM Reporting Lab: [address] [address] Performing Lab: [address] [address] UA COLOR Yellow Yellow UA APPEARANCE Turbid Clear UA GLUCOSE Normal mg/dL Negative UA KETONES NEGATIVE mg/dL Negative UA BLOOD NEGATIVE mg/dL Negative UA PROTEIN 20 mg/dL Negative UA NITRITE NEGATIVE mg/dL Negative UA BILIRUBIN NEGATIVE mg/dL Negative UA SPECIFIC GRAVITY 1.024 H 1.016-1.022 UA pH 6.5 5.0-9.0 UA UROBILINOGEN Normal mg/dL <2.0 UA LEUKOCYTE LARGE Negative Sep 10, 2024 02:16 PM [facility] MICROSCOPIC AUTOMATED, URINE Specimen Type: URINE Comment: If Glucose = >500 and Ketones are positive, please alert the Physician. Ordering Provider: QAMAR CONNOLLY Report Released Date/Time: Sep 10, 2024 02:12 PM Reporting Lab: [address] [address] Performing Lab: [address] [address] UA WBC TNTC /[HPF] 0-5 UA BACTERIA 1+ /[HPF] NoneObs UA RBC 11-20 /[HPF] H 0-3 UA SQUAMOUS EPITH FEW /[HPF] UA WBC CLUMPS PRESENT /[HPF] None Sep 09, 2024 11:18 AM [facility] URINALYSIS Specimen Type: URINE Comment: If Glucose = >500 and Ketones are positive, please alert the Physician. Ordering Provider: QAMAR CONNOLLY Report Released Date/Time: Sep 09, 2024 11:14 AM Reporting Lab: [facility] [address] [facility] [address] Performing Lab: [facility] [address] [facility] [address] UA COLOR Light-Yellow Yellow UA APPEARANCE Clear [...] 01:47 PM 98.4 66 123/83 18 98 [facility] Social History: Smoking Status (Most current) and Tobacco Use (All prior to encounter date) This section includes the most current, and the historical, smoking and tobacco- related health factors from the [place] facility where the Encounter took place. Current Smoking Status This section includes the most current smoking, or tobacco-related health factor, from the [place] facility where the Encounter took place. Date/Time Current Smoking Status Comment Facil ity Sep 29, 2023 08:46 AM [place] [facility] US[facility] Tobacco Use History This section includes a history of the smoking, or tobacco-related health factors, that were collected on or before the date of the Encounter. The data comes from the [place] facility where the Encounter took place. Date/Time Smoking Status/Tobacco Use Comment F acility Sep 29, 2023 08:46 AM [place] 5 TO < 15 YRS [facility] Pathology Reports: +/- 30 days of the [...] the Encounter. The data comes from all [place] treatment facilities. Date/Time Pathology Report Provider Source Sep 09, 2024 11:18 AM LR MICROBIOLOGY RE PORT: Reporting Lab: [facility] [CLIA# [id number]] [address] [place] [id number] Accession [UID]: [id number] [[id number]] Received: Sep 09, 2024@11:18 Collection sample: URINE CLEAN CATCH Collection date: Sep 09, 2024 11:18 Site/Specimen: URINE Provider: QAMAR CONNOLLY Test(s) ordered: URINE CULTURE(MWROX).......... completed: Sep 13, 2024 10:40 * BACTERIOLOGY FINAL REPORT => Sep 13, 2024 10:40 [facility] CODE: [id number] Bacteriology Remark(s): <10,000 CFU/ML GRAM POSITIVE (NOT OTHERWISE SPECIFIED) =--=--=--=--=--=--=--=-- =--=--=--=--=--=--=--=-- =--=--=--=--=--=--=--=-- =--=-- Performing Laboratory: Bacteriology Report Performed By: [facility] [CLIA# [id number]] [address] [place] [id number] [facility] Encounter Notes: All associated encounter notes This section contains the clinical notes associated to the Encounter. Date/Time Encounter Note(s) Provider Source Sep 09, 2024 01:52 PM PHYSICIAN ELECTRONIC SCANNER OPERATOR NOTE: LOCAL TITLE: PA NOTE STANDARD TITLE: PHYSICIAN ELECTRONIC SCANNER OPERATOR NOTE DATE OF NOTE: SEP 09, 2024@13:52 ENTRY DATE: SEP 09, 2024@13:52:33 AUTHOR: KYLEE LESLIE EXP COSIGNER: URGENCY: STATUS: COMPLETED SICK CALL VISIT HPI: 44-year-old female with below noted past medical history presents with concerns of increased urgency and a sense of incomplete emptying with dysuria most noted at the urethral meatus. No vaginal symptoms. has IUD. No discharge or odor. No fever or pelvic pain. has concerns for UTI. REVIEW OF SYSTEMS: A 12 point review of systems is negative except as noted in the HPI. Active Medical Problems: Active Problem Polycystic Ovary ([facility] [id number]) E2 10/07/2023 QAMAR CONNOLLY Chronic Post-Traumatic Stress Disor 10/07/2023 QAMAR CONNOLLY Attention Deficit Hyperactivity Dis 10/07/2023 QAMAR CONNOLLY Myopia H52.10, Onset 09/29/2023March,JAMES Cosme Dry eyes H04.123, Onset 09/29/2023 MAY,JAMES Cosme Depression F32.A, Onset 09/29/2023 MAY,JAMES Cosme Regular astigmatism H52.229, Onset 09/29/2023MarchJAMES Closed fracture of metatarsal bone 09/29/2023March,JAMES Cosme Hypercholesterolemia E78.00, Onset 09/29/2023March,JAMES Cosme Diverticulitis K57.92, Onset / 10/07/2023MarchJAMES Meds: Active Outpatient Medications (including Supplies): SPIRONOLACTONE 25MG TAB TAKE TWO TABLETS BY MOUTH ONCE ACTIVE DAILY FOR FLUID ACCUMULATION Non-VA AMPHETAMINE/DEXTROAMPHET 10MG SA CAP 20MG BY MOUTH ACTIVE ONCE DAILY Non-VA BUPROPION HCL 300MG 24HR SA TAB 300MG BY MOUTH ONCE ACTIVE DAILY Non-VA PROPRANOLOL HCL 10MG TAB 10MG BY MOUTH ONCE DAILY ACTIVE Allergies: CONCERTA Date Vital Measurement Qualifiers 09/09/2024 13:47 Temp F (C) 98.4 (36.9) Oral Pulse 66 Respir 18 BP 123/83 R Arm, Sitting, Adult Cuff, Cuff-Automated POx (L/Min)(%) 98 Room Air FOCUSED EXAMINATION Well-developed, well-nourished female in no acute distress Respirations even and regular Vascular is well-perfused, no pallor Neuro: Nonfocal Labs: Color Light-Yellow Ref: Yellow Appear Clear Ref: Clear pH 6.0 5 - 9 GlucUr Normal mg/dL Ref: Negative [place] Neg mg/dL Ref: Negative Blood Neg mg/dL Ref: Negative Protein Neg mg/dL Ref: Negative LeukEs Neg Ref: Negative Nitrit Neg mg/dL Ref: Negative Biliru Neg mg/dL Ref: Negative UroBiln Normal mg/dL Ref: <2.0 SpeGra 1.007 L 1.016 - 1.022 MDM: Discussed with labs are pristine. Nursing has already placed a urine culture coinciding with the UA. Will continue with that case there is something that was not picked up by the analysis. Brackney is well-hydrated and possibility of some irritation of the urethral meatus could be chemical in nature. will continue with home care and try to capture morning urine for analysis. RTC as needed. ASSESSMENT/PLAN Dysuria As above Brackney able to verbalize understanding of plan of care and agrees. >> MEDICATIONS Reviewed and reconciled with /adonay/ KYLEE SNYDER, MS,PA-C PHYSICIAN ELECTRONIC SCANNER OPERATOR Signed: 09/09/2024 14:25 KYLEE LESLIE [place] [facility]
--- OUTSIDE RECORDS SUMMARY | 2024-11-23 15:20 | XMS_ITS | Encounter Summary ---
Author Name [facility] Organization [facility] Address [address] [place] [address] Care Team Providers Care Professional Tutor Name Role Phone QAMAR CONNOLLY Primary Care Provider Unavailabl e Selected Encounter This section includes the information on record at [facility] for the Encounter. Date/Time Encounter Type Encounter Description Reason Pro vider Source Sep 09, 2024 11:13 AM Outpatient Encounter TELEPHONE PRIMARY CARE IHE Encounter Template Text not used by [facility] Plan of Treatment: Future Appointments (+ 6 months) and Future Tests (+/- 45 days) The Plan of Treatment section includes future care activities for the patient from all [place] treatmentfacilities. This section includes future appointments and future orders which are active, pending or scheduled. Future Appointments This section includes appointments that were scheduled to occur 6 months from the date of the Encounter, up to a maximum of 20 appointments. The data comes from all [place] treatment facilities. Appointment Date/Time Appointment Type Appointme nt Facility Name Oct 07, 2024 03:30 PM AMBULATORY - MEDICINE [facility] Nov 22, 2024 01:30 PM AMBULATORY - PSYCHIATRY [facility] Active, Pending, and Scheduled Orders This section includes a listing of several types of active, pending, and scheduled orders, including clinic medications orders, diagnostic test orders, procedure orders and consult orders; where the start date of the order is 45 days before the date of the Encounter or 45 days after the date of theEncounter. The data comes from all [facility] treatment facilities. Test Date/Time Test Type Test Details Facility Name Sep 10, 2024 12:00 AM Laboratory - Chemistry Order URINALYSIS CLEAN CATCH URINE SP [facility] Lab Results: +/- 30 days of the encounter This section includes the Chemistry and Hematology Lab Results on record with [facility] for the patient. Radiology Reports and Pathology Reports are provided separately, in subsequent sections. Lab Results This section contains the Chemistry/Hematology Results that were resulted 30 days before or 30 daysafter the date of the Encounter. Date/Time Source Result Type Result - Unit Interpretation Reference Range Comment Oct 07, 2024 08:30 AM [facility] LIPID PANEL FASTING Specimen Type: SERUM No comment entered. Ordering Provider: QAMAR CONNOLLY Report Released Date/Time: Sep 22, 2024 12:58 PM Reporting Lab: [facility] [address] [facility] [phone] Performing Lab: [facility] [address] [facility] [address] CHOLESTEROL 270 mg/dL H TRIGLYCERIDE 176 mg/dL H 0-150 LDL calculated 192 mg/dL H 0-129 CHOL/HDL 6.3 HDL CHOLESTEROL 43 mg/dL 40-60 Oct 07, 2024 08:30 AM [facility] BASIC METABOLIC PANEL (fasting) Specimen Type: SERUM No comment entered. Ordering Provider: QAMAR CONNOLLY Report Released Date/Time: Sep 22, 2024 12:58 PM Reporting Lab: [facility] [address] [facility] [address] Performing Lab: [address] [address] UREA NITROGEN 13 mg/dL 7-25 GLUCOSE 92 mg/dL 65-100 SODIUM 135 mmol/L 135-145 POTASSIUM 4.2 mmol/L 3.5-5.0 CHLORIDE 103 mmol/L 100-110 CO2 23 meq/L 20-30 CREATININE, Serum 0.76 mg/dL 0.50-1.40 eGFR(CKD-EPI 2020) >90 mL/min >60 Sep 10, 2024 02:16 PM [facility] URINALYSIS CLEAN CATCH Specimen Type: URINE Comment: If Glucose = >500 and Ketones are positive, please alert the Physician. Ordering Provider: QAMAR CONNOLLY Report Released Date/Time: Sep 10, 2024 02:12 PM Reporting Lab: [address] [address] Performing Lab: [address] [address] UA COLOR Yellow Yellow UA APPEARANCE Turbid Clear UA GLUCOSE Normal mg/dL Negative UA KETONES NEGATIVE mg/dL Negative UA BLOOD NEGATIVE mg/dL Negative UA PROTEIN 20 mg/dL Negative UA NITRITE NEGATIVE mg/dL Negative UA BILIRUBIN NEGATIVE mg/dL Negative UA SPECIFIC GRAVITY 1.024 H 1.016-1.022 UA pH 6.5 5.0-9.0 UA UROBILINOGEN Normal mg/dL <2.0 UA LEUKOCYTE LARGE Negative Sep 10, 2024 02:16 PM [facility] MICROSCOPIC AUTOMATED, URINE Specimen Type: URINE Comment: If Glucose = >500 and Ketones are positive, please alert the Physician. Ordering Provider: QAMAR CONNOLLY Report Released Date/Time: Sep 10, 2024 02:12 PM Reporting Lab: [address] [address] Performing Lab: [address] [address] UA WBC TNTC /[HPF] 0-5 UA BACTERIA 1+ /[HPF] NoneObs UA RBC 11-20 /[HPF] H 0-3 UA SQUAMOUS EPITH FEW /[HPF] UA WBC CLUMPS PRESENT /[HPF] None Sep 09, 2024 11:18 AM [facility] URINALYSIS Specimen Type: URINE Comment: If Glucose = >500 and Ketones are positive, please alert the Physician. Ordering Provider: QAMAR CONNOLLY Report Released Date/Time: Sep 09, 2024 11:14 AM Reporting Lab: [address] [address] Performing Lab: [address] [place] [address] UA COLOR Light-Yellow Yellow UA APPEARANCE Clear [...] 01:47 PM 98.4 66 123/83 18 98 [facility] Social History: Smoking Status (Most current) and Tobacco Use (All prior to encounter date) This section includes the most current, and the historical, smoking and tobacco- related health factors from the [facility] facility where the Encounter took place. Current Smoking Status This section includes the most current smoking, or tobacco-related health factor, from the ID facility where the Encounter took place. Date/Time Current Smoking Status Comment Facil ity Sep 29, 2023 08:46 AM ID-TOBACCO FORMER USER [facility] Tobacco Use History This section includes a history of the smoking, or tobacco-related health factors, that were collected on or before the date of the Encounter. The data comes from the ID facility where the Encounter took place. Date/Time Smoking Status/Tobacco Use Comment F acility Sep 29, 2023 08:46 AM ID-TOBACCO QUIT 5 TO < 15 YRS [facility] Pathology Reports: +/- 30 days of [...] the Encounter. The data comes from all [place] treatment facilities. Date/Time Pathology Report Provider Source Sep 09, 2024 11:18 AM LR MICROBIOLOGY RE PORT: Reporting Lab: [facility] [CLIA# [id number]] [address] [place] [address] Accession [UID]: [id number] [[id number]] Received: Sep 09, 2024@11:18 Collection sample: URINE CLEAN CATCH Collection date: Sep 09, 2024 11:18 Site/Specimen: URINE Provider: QAMAR CONNOLLY Test(s) ordered: URINE CULTURE(MWROX).......... completed: Sep 13, 2024 10:40 * BACTERIOLOGY FINAL REPORT => Sep 13, 2024 10:40 TECH CODE: [id number] Bacteriology Remark(s): <10,000 CFU/ML GRAM POSITIVE (NOT OTHERWISE SPECIFIED) =--=--=--=--=--=--=--=-- =--=--=--=--=--=--=--=-- =--=--=--=--=--=--=--=-- =--=-- Performing Laboratory: Bacteriology Report Performed By: [facility] [CLIA# [id number]] [address] [place] [phone] BRIANNA MILLIGAN [facility] Encounter Notes: All associated encounter notes This section contains the clinical notes associated to the Encounter. Date/Time Encounter Note(s) Provider Source Sep 09, 2024 01:35 PM ADDENDUM: LOCAL TITLE: Addendum STANDARD TITLE: ADDENDUM DATE OF NOTE: SEP 09, 2024@13:35 ENTRY DATE: SEP 09, 2024@13:35 AUTHOR: QAMAR CONNOLLY EXP COSIGNER: URGENCY: STATUS: COMPLETED ok to notify pateint that her u/a looks normal so far- will notify her if the urine culture looks abnormal (that likely won;t be back until MON) /trinidad CONNOLLY D.O. PHYSICIAN Signed: 09/09/2024 13:36 Receipt Acknowledged By: 09/09/2024 14:36 /adonay/ MJ FOWLER RN REGISTERED NURSE ====== --- Original Document --- 09/09/24 NURSING/OUTPATIENT TELEPHONE FOLLOW UP: F: Telephone call D: Sophiat called in stating that she thinks she has a UTI. She wanted to know if sick call was open today. She was told that sick call was open till 3P. UA & CS was ordered. She was told to come down to sick call after 1P. She was notified that labs were ordered. /es/ LONNIE PARHAM MSN Ed., BSN FLOOR WAXER NURSE Signed: 09/09/2024 11:17 Receipt Acknowledged By: 09/09/2024 13:57 /es/ QAMAR CONNOLLY D.O. PHYSICIAN 09/09/2024 12:24 /es/ KYLEE SNYDER MS,PA-C PHYSICIAN SHIPFITTER APPRENTICE 09/09/2024 ADDENDUM STATUS: COMPLETED Reporting Lab: [facility] [CLIA# [id number]] [address] [place] [phone] Report Released Date/Time: Sep 09, 2024@11:42 Provider: QAMAR CONNOLLY Specimen: URINE. URIN 1024 14 Specimen Collection Date: Sep 09, 2024@11:18 Test name Result units Ref. range Site Code UA COLOR Light-Yellow Ref: Yellow [631] UA APPEARANCE Clear Ref: Clear [631] UA pH 6.0 5.0 - 9.0 [631] UA GLUCOSE Normal mg/dL Ref: Negative [631] UA KETONES NEGATIVE mg/dL Ref: Negative [631] UA BLOOD NEGATIVE mg/dL Ref: Negative [631] UA PROTEIN NEGATIVE mg/dL Ref: Negative [631] UA LEUKOCYTE NEGATIVE Ref: Negative [631] UA NITRITE NEGATIVE mg/dL Ref: Negative [631] UA BILIRUBIN NEGATIVE mg/dL Ref: Negative [631] Eval: Etodolac may cause false positve Bilirubin, Urine. UA UROBILINOGEN Normal mg/dL Ref: <2.0 [631] UA SPECIFIC GRAVITY 1.007 L 1.016 - 1.022 [631] Comment: If Glucose = >500 and Ketones are positive, please alert the Physician. == /es/ LONNIE PARHAM MSN Ed., BSN FLOOR WAXER NURSE Signed: 09/09/2024 11:50 Receipt Acknowledged By: 09/09/2024 13:34 /es/ QAMAR CONNOLLY D.O. PHYSICIAN 09/09/2024 12:23 /es/ KYLEE SNYDER MS,PA-C PHYSICIAN SHIPFITTER APPRENTICE QAMAR CONNOLLY [facility] Sep 09, 2024 11:50 AM ADDENDUM: LOCAL TITLE: Addendum STANDARD TITLE: ADDENDUM DATE OF NOTE: SEP 09, 2024@11:50:24 ENTRY DATE: SEP 09, 2024@11:50:24 AUTHOR: LONNIE PARHAM EXP COSIGNER: URGENCY: STATUS: COMPLETED Reporting Lab: [facility] [CLIA# [id number]] [address] [place] [phone] Report Released Date/Time: Sep 09, 2024@11:42 Provider: QAMAR CONNOLLY Specimen: URINE. URIN 1024 14 Specimen Collection Date: Sep 09, 2024@11:18 Test name Result units Ref. range Site Code UA COLOR Light-Yellow Ref: Yellow [631] UA APPEARANCE Clear Ref: Clear [631] UA pH 6.0 5.0 - 9.0 [631] UA GLUCOSE Normal mg/dL Ref: Negative [631] UA KETONES NEGATIVE mg/dL Ref: Negative [631] UA BLOOD NEGATIVE mg/dL Ref: Negative [631] UA PROTEIN NEGATIVE mg/dL Ref: Negative [631] UA LEUKOCYTE NEGATIVE Ref: Negative [631] UA NITRITE NEGATIVE mg/dL Ref: Negative [631] UA BILIRUBIN NEGATIVE mg/dL Ref: Negative [631] Eval: Etodolac may cause false positve Bilirubin, Urine. UA UROBILINOGEN Normal mg/dL Ref: <2.0 [631] UA SPECIFIC GRAVITY 1.007 L 1.016 - 1.022 [631] Comment: If Glucose = >500 and Ketones are positive, please alert the Physician. == /adonay/ LONNIE PARHAM MSN Ed., BSN FLOOR WAXER NURSE Signed: 09/09/2024 11:50 Receipt Acknowledged By: 09/09/2024 13:34 /es/ QAMAR CONNOLLY D.O. PHYSICIAN 09/09/2024 12:23 /es/ KYLEE SNYDER MS,PAShaun PHYSICIAN SHIPFITTER APPRENTICE ====== --- Original Document --- 09/09/24 NURSING/OUTPATIENT TELEPHONE FOLLOW UP: F: Telephone call D: Sophiat called in stating that she thinks she has a UTI. She wanted to know if sick call was open today. She was told that sick call was open till 3P. UA & CS was ordered. She was told to come down to sick call after 1P. She was notified that labs were ordered. /adonay/ LONNIE PARHAM MSN Ed., BSN FLOOR WAXER NURSE Signed: 09/09/2024 11:17 Receipt Acknowledged By: * AWAITING SIGNATURE * QAMAR CONNOLLY 09/09/2024 12:24 /es/ KYLEE SNYDER MS,PAShaun PHYSICIAN SHIPFITTER APPRENTICE LONNIE PARHAM [facility] Sep 09, 2024 11:14 AM NURSING TELEPHONE ENCOUNTER NOTE: LOCAL TITLE: NURSING/OUTPATIENT TELEPHONE FOLLOW UP STANDARD TITLE: NURSING TELEPHONE ENCOUNTER NOTE DATE OF NOTE: SEP 09, 2024@11:14 ENTRY DATE: SEP 09, 2024@11:14:59 AUTHOR: LONNIE PARHAM COSIGNER: URGENCY: STATUS: COMPLETED NURSING/OUTPATIENT TELEPHONE FOLLOW UP Has ADDENDA F: Telephone call D: Vet called in stating that she thinks she has a UTI. She wanted to know if sick call was open today. She was told that sick call was open till 3P. UA & CS was ordered. She was told to come down to sick call after 1P. She was notified that labs were ordered. /es/ LONNIE PARHAM MSN Ed., BSN FLOOR WAXER NURSE Signed: 09/09/2024 11:17 Receipt Acknowledged By: 09/09/2024 13:57 /es/ QAMAR CONNOLLY D.O. PHYSICIAN 09/09/2024 12:24 /es/ KYLEE SNYDER MS,PA-C PHYSICIAN SHIPFITTER APPRENTICE 09/09/2024 ADDENDUM STATUS: COMPLETED Reporting Lab: [facility] [CLIA# [id number]] [address] [place] [phone] Report Released Date/Time: Sep 09, 2024@11:42 Provider: QAMAR CONNOLLY Specimen: URINE. URIN 1024 14 Specimen Collection Date: Sep 09, 2024@11:18 Test name Result units Ref. range Site Code UA COLOR Light-Yellow Ref: Yellow [631] UA APPEARANCE Clear Ref: Clear [631] UA pH 6.0 5.0 - 9.0 [631] UA GLUCOSE Normal mg/dL Ref: Negative [631] UA KETONES NEGATIVE mg/dL Ref: Negative [631] UA BLOOD NEGATIVE mg/dL Ref: Negative [631] UA PROTEIN NEGATIVE mg/dL Ref: Negative [631] UA LEUKOCYTE NEGATIVE Ref: Negative [631] UA NITRITE NEGATIVE mg/dL Ref: Negative [631] UA BILIRUBIN NEGATIVE mg/dL Ref: Negative [631] Eval: Etodolac may cause false positve Bilirubin, Urine. UA UROBILINOGEN Normal mg/dL Ref: <2.0 [631] UA SPECIFIC GRAVITY 1.007 L 1.016 - 1.022 [631] Comment: If Glucose = >500 and Ketones are positive, please alert the Physician. == /adonay/ LONNIE PARHAM MSN Ed., BSN FLOOR WAXER NURSE Signed: 09/09/2024 11:50 Receipt Acknowledged By: 09/09/2024 13:34 /es/ QAMAR CONNOLLY D.O. PHYSICIAN 09/09/2024 12:23 /es/ KYLEE SNYDER MS,PA-C PHYSICIAN SHIPFITTER APPRENTICE 09/09/2024 ADDENDUM STATUS: COMPLETED ok to notify pateint that her u/a looks normal so far- will notify her if the urine culture looks abnormal (that likely won;t be back until MON) /adonay/ QAMAR CONNOLLY D.O. PHYSICIAN Signed: 09/09/2024 13:36 Receipt Acknowledged By: * AWAITING SIGNATURE * MJ FOWLER [facility]
--- OUTSIDE RECORDS SUMMARY | 2024-11-23 15:20 | XMS_ITS ---
Author Name [facility] [place] [facility] [place] [facility] [place] Address [address] [place] [address] Care Team Providers Care Director Content Marketing Name Role Phone QAMAR CONNOLLY Primary Care Provider Unavailabl e Selected Encounter This section includes the information on record at [place] for the Encounter. Date/Time Encounter Type Encounter Description Reason Pro vider Source March 30, 2024 02:22 PM Outpatient Encounter TELEPHONE PRIMARY CARE IHE Encounter Template Text not used by [place] Plan of Treatment: Future Appointments (+ 6 months) and Future Tests (+/- 45 days) The Plan of Treatment section includes future care activities for the patient from all [place] treatmentfacilities. This section includes future appointments and future orders which are active, pending or scheduled. Future Appointments This section includes appointments that were scheduled to occur 6 months from the date of the Encounter, up to a maximum of 20 appointments. The data comes from all [place] treatment facilities. Appointment Date/Time Appointment Type Appointme nt Facility Name Apr 23, 2024 03:00 PM AMBULATORY - MEDICINE [facility] Apr 23, 2024 03:01 PM AMBULATORY - MEDICINE [facility] Sep 09, 2024 01:30 PM AMBULATORY - MEDICINE [facility] Sep 09, 2024 02:00 PM [facility] Social History: Smoking Status (Most current) and Tobacco Use (All prior to encounter date) This section includes the most current, and the historical, smoking and tobacco- related health factors from the [place] facility where the Encounter took place. Current Smoking Status This section includes the most current smoking, or tobacco-related health factor, from the [place] facility where the Encounter took place. Date/Time Current Smoking Status Comment Facil ity Sep 29, 2023 08:46 AM [place]-TOBACCO FORMER USER [facility] Tobacco Use History This section includes a history of the smoking, or tobacco-related health factors, that were collected on or before the date of the Encounter. The data comes from the [place] facility where the Encounter took place. Date/Time Smoking Status/Tobacco Use Comment F acility Sep 29, 2023 08:46 AM [place]-TOBACCO QUIT 5 TO < 15 YRS [facility] Encounter Notes: All associated encounter notes This section contains the clinical notes associated to the Encounter. Date/Time Encounter Note(s) Provider Source March 30, 2024 02:22 PM NURSING NOTE: LOCAL TITLE: NURSING NOTE STANDARD TITLE: NURSING NOTE DATE OF NOTE: MARCH 30, 2024@14:22 ENTRY DATE: MARCH 30, 2024@14:22:29 AUTHOR: MJ FOWLER EXP COSIGNER: URGENCY: STATUS: COMPLETED Received email from MARKUS Golden RN, Referral Coordination Team Nurse in [place] who reported that the provider that andrea had requested to see in [place], Katie Mendoza, will not be on staff until sometime in July. We can enter a new consult for at that time if she wishes. Called and spoke with , asked her if she would like to see someone in the meantime, stated that she did not. Advised that if she changed her mind or felt the need that she can always contact us so that we can place a consult. verbally expressed understanding and thanked me for the call /es/ MJ FOWLER RN REGISTERED NURSE Signed: 03/30/2024 14:25 Receipt Acknowledged By: 03/30/2024 16:03 /es/ QAMAR CONNOLLY D.O. PHYSICIAN MJ FOWLER [facility]
--- OUTSIDE RECORDS SUMMARY | 2024-11-23 15:20 | XMS_ITS | Encounter Summary ---
Author Name [facility] [place] [facility] [place] [facility] [place] [facility] [place] Address [address] [place] [address] Care Team Providers Care Newsagent Name Role Phone QAMAR CONNOLLY Primary Care Provider Xavier ramos Selected Encounter This section includes the information on record at [place] for the Encounter. Date/Time Encounter Type Encounter Description Reason Provider Source Sep 09, 2024 01:30 PM OFF/OP EST MARCH X REQ PHY/QHP PRIMARY CARE/MEDICINE ICD-10-CM Z71.89 Other specified counseling MJ FOWLER Ale Encounter Template Text not used by [place] Assessments - Encounter Diagnoses This section includes the primary and secondary diagnoses documented for the Encounter. Date/Time Primary/Secondary Diagnosis Diagnosis Name Provider Source Sep 09, 2024 01:47 PM PRIMARY Other specified counseling MJ FOWLER [facility] Plan of Treatment: Future Appointments (+ 6 months) and Future Tests (+/- 45 days) The Plan of Treatment section includes future care activities for the patient from all [place] treatmentfacilities. This section includes future appointments and future orders which are active, pending or scheduled. Future Appointments This section includes appointments that were scheduled to occur 6 months from the date of the Encounter, up to a maximum of 20 appointments. The data comes from all [place] treatment facilities. Appointment Date/Time Appointment Type Appointme nt Facility Name Oct 07, 2024 03:30 PM [facility] Nov 22, 2024 01:30 PM AMBULATORY - PSYCHIATRY [facility] Active, Pending, and Scheduled Orders This section includes a listing of several types of active, pending, and scheduled orders, including clinic medications orders, diagnostic test orders, procedure orders and consult orders; where the start date of the order is 45 days before the date of the Encounter or 45 days after the date of theEncounter. The data comes from all [place] treatment facilities. Test Date/Time Test Type Test Details Facility Name Sep 10, 2024 12:00 AM Laboratory - Chemistry Order URINALYSIS CLEAN CATCH URINE SP [facility] Lab Results: +/- 30 days of the encounter This section includes the Chemistry and Hematology Lab Results on record with [place] for the patient. Radiology Reports and Pathology Reports are provided separately, in subsequent sections. Lab Results This section contains the Chemistry/Hematology Results that were resulted 30 days before or 30 daysafter the date of the Encounter. Date/Time Source Result Type Result - Unit Interpretation Reference Range Comment Oct 07, 2024 08:30 AM [facility] LIPID PANEL FASTING Specimen Type: SERUM No comment entered. Ordering Provider: QAMAR CONNOLLY Report Released Date/Time: Sep 22, 2024 12:58 PM Reporting Lab: [facility] [address] [facility] [address] Performing Lab: [address] [address] CHOLESTEROL 270 mg/dL H TRIGLYCERIDE 176 mg/dL H 0-150 LDL calculated 192 mg/dL H 0-129 CHOL/HDL 6.3 HDL CHOLESTEROL 43 mg/dL 40-60 Oct 07, 2024 08:30 AM [facility] BASIC METABOLIC PANEL (fasting) Specimen Type: SERUM No comment entered. Ordering Provider: QAMAR CONNOLLY Report Released Date/Time: Sep 22, 2024 12:58 PM Reporting Lab: [facility] [address] [facility] [address] Performing Lab: [address] [address] UREA NITROGEN 13 mg/dL 7-25 GLUCOSE 92 mg/dL 65-100 SODIUM 135 mmol/L 135-145 POTASSIUM 4.2 mmol/L 3.5-5.0 CHLORIDE 103 mmol/L 100-110 CO2 23 meq/L 20-30 CREATININE, Serum 0.76 mg/dL 0.50-1.40 eGFR(CKD-EPI 2020) >90 mL/min >60 Sep 10, 2024 02:16 PM [facility] URINALYSIS CLEAN CATCH Specimen Type: URINE Comment: If Glucose = >500 and Ketones are positive, please alert the Physician. Ordering Provider: QAMAR CONNOLLY Report Released Date/Time: Sep 10, 2024 02:12 PM Reporting Lab: [address] [address] Performing Lab: [address] [address] UA COLOR Yellow Yellow UA APPEARANCE Turbid Clear UA GLUCOSE Normal mg/dL Negative UA KETONES NEGATIVE mg/dL Negative UA BLOOD NEGATIVE mg/dL Negative UA PROTEIN 20 mg/dL Negative UA NITRITE NEGATIVE mg/dL Negative UA BILIRUBIN NEGATIVE mg/dL Negative UA SPECIFIC GRAVITY 1.024 H 1.016-1.022 UA pH 6.5 5.0-9.0 UA UROBILINOGEN Normal mg/dL <2.0 UA LEUKOCYTE LARGE Negative Sep 10, 2024 02:16 PM [facility] MICROSCOPIC AUTOMATED, URINE Specimen Type: URINE Comment: If Glucose = >500 and Ketones are positive, please alert the Physician. Ordering Provider: QAMAR CONNOLLY Report Released Date/Time: Sep 10, 2024 02:12 PM Reporting Lab: [address] [address] Performing Lab: [address] [address] UA WBC TNTC /[HPF] 0-5 UA BACTERIA 1+ /[HPF] NoneObs UA RBC 11-20 /[HPF] H 0-3 UA SQUAMOUS EPITH FEW /[HPF] UA WBC CLUMPS PRESENT /[HPF] None Sep 09, 2024 11:18 AM [facility] URINALYSIS Specimen Type: URINE Comment: If Glucose = >500 and Ketones are positive, please alert the Physician. Ordering Provider: QAMAR CONNOLLY Report Released Date/Time: Sep 09, 2024 11:14 AM Reporting Lab: [facility] [address] [facility] [address] Performing Lab: [facility] [address] [facility] [address] UA COLOR Light-Yellow Yellow UA APPEARANCE Clear [...] 01:47 PM 98.4 66 123/83 18 98 [facility] Social History: Smoking Status (Most current) and Tobacco Use (All prior to encounter date) This section includes the most current, and the historical, smoking and tobacco- related health factors from the [place] facility where the Encounter took place. Current Smoking Status This section includes the most current smoking, or tobacco-related health factor, from the [place] facility where the Encounter took place. Date/Time Current Smoking Status Comment Facil ity Sep 29, 2023 08:46 AM [place]-TOBAC[place] FORMER USER [facility] Tobacco Use History This section includes a history of the smoking, or tobacco-related health factors, that were collected on or before the date of the Encounter. The data comes from the [place] facility where the Encounter took place. Date/Time Smoking Status/Tobacco Use Comment F acility Sep 29, 2023 08:46 AM [place]-TOBACCO QUIT 5 TO < 15 YRS [facility] Pathology Reports: +/- 30 days of [...] the Encounter. The data comes from all [place] treatment facilities. Date/Time Pathology Report Provider Source Sep 09, 2024 11:18 AM LR MICROBIOLOGY RE PORT: Reporting Lab: [facility] [CLIA# [id number]] [address] [place] [id number] Accession [UID]: [id number] [[id number]] Received: Sep 09, 2024@11:18 Collection sample: URINE CLEAN CATCH Collection date: Sep 09, 2024 11:18 Site/Specimen: URINE Provider: QAMAR CONNOLLY Test(s) ordered: URINE CULTURE(MWROX).......... completed: Sep 13, 2024 10:40 * BACTERIOLOGY FINAL REPORT => Sep 13, 2024 10:40 [facility] CODE: [id number] Bacteriology Remark(s): <10,000 CFU/ML GRAM POSITIVE (NOT OTHERWISE SPECIFIED) =--=--=--=--=--=--=--=-- =--=--=--=--=--=--=--=-- =--=--=--=--=--=--=--=-- =--=-- Performing Laboratory: Bacteriology Report Performed By: [facility] [CLIA# [id number]] [address] [place] [address] BRIANNA MILLIGAN [facility] Encounter Notes: All associated encounter notes This section contains the clinical notes associated to the Encounter. Date/Time Encounter Note(s) Provider Source Sep 09, 2024 01:45 PM PRIMARY CARE OUTPA TIENT NOTE: LOCAL TITLE: AMBULATORY/OUTPATIENT CARE NOTE STANDARD TITLE: PRIMARY CARE OUTPATIENT NOTE DATE OF NOTE: SEP 09, 2024@13:45 ENTRY DATE: SEP 09, 2024@13:45:28 AUTHOR: FOWLER,MJ E EXP COSIGNER: URGENCY: STATUS: COMPLETED F: WALK IN D: to sick call reportin SXS of UTI that began yesterday, worsening last night. Urgency and some burning. Took one dose of Pyridium with some relief last night. SXS continue today A: Vss, Urinalysis complete R: TO SEE SICK CALL PROVIDER Active Medical Problems: Active Problem Polycystic Ovary (SCT [id number]) E2 10/07/2023 FURCOLO,QAMAR Chronic Post-Traumatic Stress Disor 10/07/2023 FURCOLO,QAMAR Attention Deficit Hyperactivity Dis 10/07/2023 TAYE CONNOLLYA Myopia H52.10, Onset 09/29/2023March,JAMES Cosme Dry eyes H04.123, Onset 09/29/2023March,JAMES Cosme Depression F32.A, Onset 09/29/2023March,JAMES Cosme Regular astigmatism H52.229, Onset 09/29/2023March,JAMES Cosme Closed fracture of metatarsal bone 09/29/2023March,JAMES Cosme Hypercholesterolemia E78.00, Onset 09/29/2023March,JAMES Cosme Diverticulitis K57.92, Onset 10/07/2023March,JAMES Cosme Meds: Active Outpatient Medications (including Supplies): SPIRONOLACTONE 25MG TAB TAKE TWO TABLETS BY MOUTH ONCE ACTIVE DAILY FOR FLUID ACCUMULATION Non-VA AMPHETAMINE/DEXTROAMPHET 10MG SA CAP 20MG BY MOUTH ACTIVE ONCE DAILY Non-VA BUPROPION HCL 300MG 24HR SA TAB 300MG BY MOUTH ONCE ACTIVE DAILY Non-VA PROPRANOLOL HCL 10MG TAB 10MG BY MOUTH ONCE DAILY ACTIVE Allergies: CONCERTA No data available /adonay/ MJ FOWLER, RN REGISTERED NURSE Signed: 09/09/2024 13:[address] [facility]
--- OUTSIDE RECORDS SUMMARY | 2024-11-23 15:20 | XMS_ITS | Encounter Summary ---
Author Name [facility] [place] [facility] [place] [facility] [place] Address [address] [place] [address] Care Team Providers Care Steam Shovel Engineer Name Role Phone QAAMR CONNOLLY Primary Care Provider Unavailabl e Selected Encounter This section includes the information on record at [place] for the Encounter. Date/Time Encounter Type Encounter Description Reason Pro vider Source Sep 24, 2024 04:06 PM Outpatient Encounter PRIMARY CARE/MEDICINE IHE Encounter Template Text not used by [place] Plan of Treatment: Future Appointments (+ 6 months) and Future Tests (+/- 45 days) The Plan of Treatment section includes future care activities for the patient from all [place] treatmentfacilities. This section includes future appointments and future orders which are active, pending or scheduled. Future Appointments This section includes appointments that were scheduled to occur 6 months from the date of the Encounter, up to a maximum of 20 appointments. The data comes from all [place] treatment facilities. Appointment Date/Time Appointment Type Appointme nt Facility Name Oct 07, 2024 03:30 PM AMBULATORY - MEDICINE [facility] Nov 22, 2024 01:30 PM AMBULATORY - PSYCHIATRY [facility] Active, Pending, and Scheduled Orders This section includes a listing of several types of active, pending, and scheduled orders, including clinic medications orders, diagnostic test orders, procedure orders and consult orders; where the start date of the order is 45 days before the date of the Encounter or 45 days after the date of theEncounter. The data comes from all [place] treatment facilities. Test Date/Time Test Type Test Details Facility Name Sep 10, 2024 12:00 AM Laboratory - Chemistry Order URINALYSIS CLEAN CATCH URINE SP [facility] Lab Results: +/- 30 days of the encounter This section includes the Chemistry and Hematology Lab Results on record with [place] for the patient. Radiology Reports and Pathology Reports are provided separately, in subsequent sections. Lab Results This section contains the Chemistry/Hematology Results that were resulted 30 days before or 30 daysafter the date of the Encounter. Date/Time Source Result Type Result - Unit Interpretation Reference Range Comment Oct 07, 2024 08:30 AM [facility] LIPID PANEL FASTING Specimen Type: SERUM No comment entered. Ordering Provider: QAMAR CONNOLLY Report Released Date/Time: Sep 22, 2024 12:58 PM Reporting Lab: [address] [address] Performing Lab: [facility] [address] [facility] [address] CHOLESTEROL 270 mg/dL H TRIGLYCERIDE 176 mg/dL H 0-150 LDL calculated 192 mg/dL H 0-129 CHOL/HDL 6.3 HDL CHOLESTEROL 43 mg/dL 40-60 Oct 07, 2024 08:30 AM [facility] BASIC METABOLIC PANEL (fasting) Specimen Type: SERUM No comment entered. Ordering Provider: QAMAR CONNOLLY Report Released Date/Time: Sep 22, 2024 12:58 PM Reporting Lab: [facility] [address] [facility] [address] Performing Lab: [address] [address] UREA NITROGEN 13 mg/dL 7-25 GLUCOSE 92 mg/dL 65-100 SODIUM 135 mmol/L 135-145 POTASSIUM 4.2 mmol/L 3.5-5.0 CHLORIDE 103 mmol/L 100-110 CO2 23 meq/L 20-30 CREATININE, Serum 0.76 mg/dL 0.50-1.40 eGFR(CKD-EPI 2020) >90 mL/min >60 Sep 10, 2024 02:16 PM [facility] URINALYSIS CLEAN CATCH Specimen Type: URINE Comment: If Glucose = >500 and Ketones are positive, please alert the Physician. Ordering Provider: QAMAR CONNOLLY Report Released Date/Time: Sep 10, 2024 02:12 PM Reporting Lab: [address] [address] Performing Lab: [address] [address] UA COLOR Yellow Yellow UA APPEARANCE Turbid Clear UA GLUCOSE Normal mg/dL Negative UA KETONES NEGATIVE mg/dL Negative UA BLOOD NEGATIVE mg/dL Negative UA PROTEIN 20 mg/dL Negative UA NITRITE NEGATIVE mg/dL Negative UA BILIRUBIN NEGATIVE mg/dL Negative UA SPECIFIC GRAVITY 1.024 H 1.016-1.022 UA pH 6.5 5.0-9.0 UA UROBILINOGEN Normal mg/dL <2.0 UA LEUKOCYTE LARGE Negative Sep 10, 2024 02:16 PM [facility] MICROSCOPIC AUTOMATED, URINE Specimen Type: URINE Comment: If Glucose = >500 and Ketones are positive, please alert the Physician. Ordering Provider: QAMAR CONNOLLY Report Released Date/Time: Sep 10, 2024 02:12 PM Reporting Lab: [address] [address] Performing Lab: [address] [address] UA WBC TNTC /[HPF] 0-5 UA BACTERIA 1+ /[HPF] NoneObs UA RBC 11-20 /[HPF] H 0-3 UA SQUAMOUS EPITH FEW /[HPF] UA WBC CLUMPS PRESENT /[HPF] None Sep 09, 2024 11:18 AM [facility] URINALYSIS Specimen Type: URINE Comment: If Glucose = >500 and Ketones are positive, please alert the Physician. Ordering Provider: QAMAR CONNOLLY Report Released Date/Time: Sep 09, 2024 11:14 AM Reporting Lab: [address] [address] Performing Lab: [address] [place] [address] UA COLOR Light-Yellow Yellow UA APPEARANCE Clear [...] and tobacco- related health factors from the [place] facility where the Encounter took place. Current Smoking Status This section includes the most current smoking, or tobacco-related health factor, from the [place] facility where the Encounter took place. Date/Time Current Smoking Status Comment Facil ity Sep 29, 2023 08:46 AM [place]-TOBACCO FORMER USER [facility] Tobacco Use History This section includes a history of the smoking, or tobacco-related health factors, that were collected on or before the date of the Encounter. The data comes from the [place] facility where the Encounter took place. Date/Time Smoking Status/Tobacco Use Comment F acility Sep 29, 2023 08:46 AM [place]-TOBACCO QUIT 5 TO < 15 YRS [facility] Pathology Reports: +/- 30 days of [...] the Encounter. The data comes from all [place] treatment facilities. Date/Time Pathology Report Provider Source Sep 09, 2024 11:18 AM LR MICROBIOLOGY RE PORT: Reporting Lab: [facility] [CLIA# [id number]] [address] [place] [address] Accession [UID]: [id number] [[id number]] Received: Sep 09, 2024@11:18 Collection sample: URINE CLEAN CATCH Collection date: Sep 09, 2024 11:18 Site/Specimen: URINE Provider: QAMAR CONNOLLY Test(s) ordered: URINE CULTURE(MWROX).......... completed: Sep 13, 2024 10:40 * BACTERIOLOGY FINAL REPORT => Sep 13, 2024 10:40 TECH CODE: [id number] Bacteriology Remark(s): <10,000 CFU/ML GRAM POSITIVE (NOT OTHERWISE SPECIFIED) =--=--=--=--=--=--=--=-- =--=--=--=--=--=--=--=-- =--=--=--=--=--=--=--=-- =--=-- Performing Laboratory: Bacteriology Report Performed By: [facility] [CLIA# [id number]] [address] [place] [phone] BRIANNA MILLIGAN [facility] Encounter Notes: All associated encounter notes This section contains the clinical notes associated to the Encounter. Date/Time Encounter Note(s) Provider Source Sep 24, 2024 04:06 PM ADMINISTRATIVE NOTE: LOCAL TITLE: ADMINISTRATIVE NOTE STANDARD TITLE: ADMINISTRATIVE NOTE DATE OF NOTE: SEP 24, 2024@16:06 ENTRY DATE: SEP 24, 2024@16:06:47 AUTHOR: HERMELINDO DALEY EXP COSIGNER: URGENCY: STATUS: COMPLETED [facility] CALLED ON THE TELEPHONE TO INFORM OF UPCOMING APPT AND THAT LABWORK IS NEEDED,HOWEVER THE CALL WAS NOT ANSWERED AND A MESSAGE WAS LEFT ON VOICEMAIL DESCRIBING UPCOMING APPOINTMENT DETAILS. /adonay/ HERMELINDO DALEY [facility] Signed: 09/24/2024 16:06 HERMELINDO DALEY [facility]
--- OUTSIDE RECORDS SUMMARY | 2024-11-23 15:21 | XMS_ITS ---
Author Name [facility] Address [address] [place] [address] Care Team Providers Care Thermoscrew Operator Name Role Phone QAMAR CONNOLLY Primary Care Provider Unavailabl e Selected Encounter This section includes the information on record at [facility] for the Encounter. Date/Time Encounter Type Encounter Description Reason Pro vider Source Sep 15, 2024 12:00 AM Outpatient Encounter EVENT (HISTORICAL) I[facility] Encounter Template Text not used by [facility] Plan of Treatment: Future Appointments (+ 6 months) and Future Tests (+/- 45 days) The Plan of Treatment section includes future care activities for the patient from all [place] treatmentfacilities. This section includes future appointments and future orders which are active, pending or scheduled. Future Appointments This section includes appointments that were scheduled to occur 6 months from the date of the Encounter, up to a maximum of 20 appointments. The data comes from all [place] treatment facilities. Appointment Date/Time Appointment Type Appointme nt Facility Name Oct 07, 2024 03:30 PM AMBULATORY - MEDICINE [facility] Nov 22, 2024 01:30 PM [facility] Active, Pending, and Scheduled Orders This section includes a listing of several types of active, pending, and scheduled orders, including clinic medications orders, diagnostic test orders, procedure orders and consult orders; where the start date of the order is 45 days before the date of the Encounter or 45 days after the date of theEncounter. The data comes from all [place] treatment facilities. Test Date/Time Test Type Test Details Facility Name Sep 10, 2024 12:00 AM Laboratory - Chemistry Order URINALYSIS CLEAN CATCH URINE SP [facility] Lab Results: +/- 30 days of the encounter This section includes the Chemistry and Hematology Lab Results on record with [facility] for the patient. Radiology Reports and Pathology Reports are provided separately, in subsequent sections. Lab Results This section contains the Chemistry/Hematology Results that were resulted 30 days before or 30 daysafter the date of the Encounter. Date/Time Source Result Type Result - Unit Interpretation Reference Range Comment Oct 07, 2024 08:30 AM [facility] LIPID PANEL FASTING Specimen Type: SERUM No comment entered. Ordering Provider: QAMAR CONNOLLY Report Released Date/Time: Sep 22, 2024 12:58 PM Reporting Lab: [address] [address] Performing Lab: [facility] [address] [facility] [address] CHOLESTEROL 270 mg/dL H TRIGLYCERIDE 176 mg/dL H 0-150 LDL calculated 192 mg/dL H 0-129 CHOL/HDL 6.3 HDL CHOLESTEROL 43 mg/dL 40-60 Oct 07, 2024 08:30 AM [facility] BASIC METABOLIC PANEL (fasting) Specimen Type: SERUM No comment entered. Ordering Provider: QAMAR CONNOLLY Report Released Date/Time: Sep 22, 2024 12:58 PM Reporting Lab: [facility] [address] [facility] [address] Performing Lab: [address] [address] UREA NITROGEN 13 mg/dL 7-25 GLUCOSE 92 mg/dL 65-100 SODIUM 135 mmol/L 135-145 POTASSIUM 4.2 mmol/L 3.5-5.0 CHLORIDE 103 mmol/L 100-110 CO2 23 meq/L 20-30 CREATININE, Serum 0.76 mg/dL 0.50-1.40 eGFR(CKD-EPI 2020) >90 mL/min >60 Sep 10, 2024 02:16 PM [facility] URINALYSIS CLEAN CATCH Specimen Type: URINE Comment: If Glucose = >500 and Ketones are positive, please alert the Physician. Ordering Provider: QAMAR CONNOLLY Report Released Date/Time: Sep 10, 2024 02:12 PM Reporting Lab: [address] [address] Performing Lab: [address] [address] UA COLOR Yellow Yellow UA APPEARANCE Turbid Clear UA GLUCOSE Normal mg/dL Negative UA KETONES NEGATIVE mg/dL Negative UA BLOOD NEGATIVE mg/dL Negative UA PROTEIN 20 mg/dL Negative UA NITRITE NEGATIVE mg/dL Negative UA BILIRUBIN NEGATIVE mg/dL Negative UA SPECIFIC GRAVITY 1.024 H 1.016-1.022 UA pH 6.5 5.0-9.0 UA UROBILINOGEN Normal mg/dL <2.0 UA LEUKOCYTE LARGE Negative Sep 10, 2024 02:16 PM [facility] MICROSCOPIC AUTOMATED, URINE Specimen Type: URINE Comment: If Glucose = >500 and Ketones are positive, please alert the Physician. Ordering Provider: QAMAR CONNOLLY Report Released Date/Time: Sep 10, 2024 02:12 PM Reporting Lab: [address] [address] Performing Lab: [address] [address] UA WBC TNTC /[HPF] 0-5 UA BACTERIA 1+ /[HPF] NoneObs UA RBC 11-20 /[HPF] H 0-3 UA SQUAMOUS EPITH FEW /[HPF] UA WBC CLUMPS PRESENT /[HPF] None Sep 09, 2024 11:18 AM [facility] URINALYSIS Specimen Type: URINE Comment: If Glucose = >500 and Ketones are positive, please alert the Physician. Ordering Provider: QAMAR CONNOLLY Report Released Date/Time: Sep 09, 2024 11:14 AM Reporting Lab: [address] [address] Performing Lab: [address] [place] [id number] UA COLOR Light-Yellow Yellow UA APPEARANCE Clear Clear UA GLUCOSE Normal mg/dL Negative UA KETONES NEGATIVE mg/dL Negative UA BLOOD NEGATIVE mg/dL Negative UA PROTEIN NEGATIVE mg/dL Negative UA NITRITE NEGATIVE mg/dL Negative UA BILIRUBIN NEGATIVE mg/dL Negative UA SPECIFIC GRAVITY 1.007 L 1.016-1.022 UA pH 6.0 5.0-9.0 UA UROBILINOGEN Normal mg/dL <2.0 UA LEUKOCYTE NEGATIVE Negative Immunizations: All administered on the encounter date This section contains immunizations associated to the Encounter. Immunization Series Date Issued Reaction Comments INFLUENZA, UNSPECIFIED FORMULATION Sep 15, 2024 Social History: Smoking Status (Most current) and Tobacco Use (All prior to encounter date) This section includes the most current, and the historical, smoking and tobacco- related health factors from the [place] facility where the Encounter took place. Current Smoking Status This section includes the most current smoking, or tobacco-related health factor, from the [place] facility where the Encounter took place. Date/Time Current Smoking Status Comment Facil ity Sep 29, 2023 08:46 AM [place]-TO[facility] FORMER USER [facility] Tobacco Use History This section includes a history of the smoking, or tobacco-related health factors, that were collected on or before the date of the Encounter. The data comes from the [place] facility where the Encounter took place. Date/Time Smoking Status/Tobacco Use Comment F acmadalyn Sep 29, 2023 08:46 AM [place]-TOBACCO QUIT 5 TO < 15 YRS [facility] Pathology Reports: +/- 30 days of the [...] the Encounter. The data comes from all [place] treatment facilities. Date/Time Pathology Report Provider Source Sep 09, 2024 11:18 AM LR MICROBIOLOGY RE PORT: Reporting Lab: [facility] [CLIA# [id number]] [address] [place] [address] Accession [UID]: [id number] [[id number]] Received: Sep 09, 2024@11:18 Collection sample: URINE CLEAN CATCH Collection date: Sep 09, 2024 11:18 Site/Specimen: URINE Provider: QAMAR CONNOLLY Test(s) ordered: URINE CULTURE(MWROX).......... completed: Sep 13, 2024 10:40 * BACTERIOLOGY FINAL REPORT => Sep 13, 2024 10:40 TECH CODE: [id number] Bacteriology Remark(s): <10,000 CFU/ML GRAM POSITIVE (NOT OTHERWISE SPECIFIED) =--=--=--=--=--=--=--=-- =--=--=--=--=--=--=--=-- =--=--=--=--=--=--=--=-- =--=-- Performing Laboratory: Bacteriology Report Performed By: [facility] [CLIA# [id number]] [address] [place] [id number] [facility]ANNA MILLIGAN [place] [facility]
--- OUTSIDE RECORDS SUMMARY | 2024-11-23 15:21 | XMS_ITS | Encounter Summary ---
Author Name [facility] [place] [place] Organization [place] Address [address] [place] [address] Care Team Providers Care Enamel Finisher Name Role Phone QAMAR CONNOLLY Primary Care Provider Unavailabl e Selected Encounter This section includes the information on record at [place] for the Encounter. Date/Time Encounter Type Encounter Description Reason Provider Source Oct 07, 2024 03:30 PM OFFICE O/P EST MOD 30 MIN PRIMARY CARE/MEDICINE ICD-10-CM E28.2 Polycystic ovarian syndrome FURDAVINALO,QAMAR E Encounter Template Text not used by [place] Assessments - Encounter Diagnoses This section includes the primary and secondary diagnoses documented for the Encounter. Date/Time Primary/Secondary Diagnosis Diagnosis Name Provider Source Oct 07, 2024 04:21 PM PRIMARY Polycystic ovarian syndrome FURCOLO,QAMAR [facility] Oct 07, 2024 04:21 PM SECONDARY Attention-deficit hyperactivity disorder, unspecified type FURCOLO,QAMAR [facility] [place] Oct 07, 2024 04:21 PM SECONDARY Depression, unspecified FURCOLO,QAMAR [facility] [place] Oct 07, 2024 04:21 PM SECONDARY Post-traumatic stress disorder, chronic FURCOLO,QAMAR [facility] Oct 07, 2024 04:21 PM SECONDARY Pure hypercholesterolem ia, unspecified FURCOLO,QAMAR [facility] Plan of Treatment: Future Appointments (+ 6 months) and Future Tests (+/- 45 days) The Plan of Treatment section includes future care activities for the [facility] [place] [facility] This section includes future appointments and future orders which are active, pending or scheduled. Future Appointments This section includes appointments that were scheduled to occur 6 months from the date of the Encounter, up to a maximum of 20 appointments. The data comes from all [facility] facilities. Appointment Date/Time Appointment Type Appointme nt Facility Name Nov 22, 2024 01:30 PM AMBULATORY - PSYCHIATRY [facility] Active, Pending, and Scheduled Orders This section includes a listing of several types of active, pending, and scheduled orders, including clinic medications orders, diagnostic test orders, procedure orders and consult orders; where the start date of the order is 45 days before the date of the Encounter or 45 days after the date of theEncounter. The data comes from all [facility]. Test Date/Time Test Type Test Details Facility Name Sep 10, 2024 12:00 AM Laboratory - Chemistry Order URINALYSIS CLEAN CATCH URINE SP [facility] Lab Results: +/- 30 days of the encounter This section includes the Chemistry and Hematology Lab Results on record with [place] for the patient. Radiology Reports and Pathology Reports are provided separately, in subsequent sections. Lab Results This section contains the Chemistry/Hematology Results that were resulted 30 days before or 30 daysafter the date of the Encounter. Date/Time Source Result Type Result - Unit Interpretation Reference Range Comment Oct 07, 2024 08:30 AM [facility] LIPID PANEL FASTING Specimen Type: SERUM No comment entered. Ordering Provider: QAMAR CONNOLLY Report Released Date/Time: Sep 22, 2024 12:58 PM Reporting Lab: [address] [address] Performing Lab: [address] [address] CHOLESTEROL 270 mg/dL H TRIGLYCERIDE 176 mg/dL H 0-150 LDL calculated 192 mg/dL H 0-129 CHOL/HDL 6.3 HDL CHOLESTEROL 43 mg/dL 40-60 Oct 07, 2024 08:30 AM [facility] BASIC METABOLIC PANEL (fasting) Specimen Type: SERUM No comment entered. Ordering Provider: QAMAR CONNOLLY Report Released Date/Time: Sep 22, 2024 12:58 PM Reporting Lab: [facility] [address] [facility] [address] Performing Lab: [address] [address] UREA NITROGEN 13 mg/dL 7-25 GLUCOSE 92 mg/dL 65-100 SODIUM 135 mmol/L 135-145 POTASSIUM 4.2 mmol/L 3.5-5.0 CHLORIDE 103 mmol/L 100-110 CO2 23 meq/L 20-30 CREATININE, Serum 0.76 mg/dL 0.50-1.40 eGFR(CKD-EPI 2020) >90 mL/min >60 Sep 10, 2024 02:16 PM [facility] URINALYSIS CLEAN CATCH Specimen Type: URINE Comment: If Glucose = >500 and Ketones are positive, please alert the Physician. Ordering Provider: QAMAR CONNOLLY Report Released Date/Time: Sep 10, 2024 02:12 PM Reporting Lab: [address] [address] Performing Lab: [address] [address] UA COLOR Yellow Yellow UA APPEARANCE Turbid Clear UA GLUCOSE Normal mg/dL Negative UA KETONES NEGATIVE mg/dL Negative UA BLOOD NEGATIVE mg/dL Negative UA PROTEIN 20 mg/dL Negative UA NITRITE NEGATIVE mg/dL Negative UA BILIRUBIN NEGATIVE mg/dL Negative UA SPECIFIC GRAVITY 1.024 H 1.016-1.022 UA pH 6.5 5.0-9.0 UA UROBILINOGEN Normal mg/dL <2.0 UA LEUKOCYTE LARGE Negative Sep 10, 2024 02:16 PM [facility] MICROSCOPIC AUTOMATED, URINE Specimen Type: URINE Comment: If Glucose = >500 and Ketones are positive, please alert the Physician. Ordering Provider: AQMAR CONNOLLY Report Released Date/Time: Sep 10, 2024 02:12 PM Reporting Lab: [address] [place] [address] Performing Lab: [address] [address] UA WBC TNTC /[HPF] 0-5 UA BACTERIA 1+ /[HPF] NoneObs UA RBC 11-20 /[HPF] H 0-3 UA SQUAMOUS EPITH FEW /[HPF] UA WBC CLUMPS PRESENT /[HPF] None Sep 09, 2024 11:18 AM [facility] URINALYSIS Specimen Type: URINE Comment: If Glucose = >500 and Ketones are positive, please alert the Physician. Ordering Provider: QAMAR CONNOLLY Report Released Date/Time: Sep 09, 2024 11:14 AM Reporting Lab: [address] [address] Performing Lab: [address] [address] UA COLOR Light-Yellow Yellow UA APPEARANCE Clear [...] Pain Height Weight Body Mass Index Source Oct 07, 2024 03:38 PM 98.5 87 110/73 16 96 0 166 30 [facility] Social History: Smoking Status (Most current) and Tobacco Use (All prior to encounter date) This section includes the most current, and the historical, smoking and tobacco- related health factors from the [place] facility where the Encounter took place. Current Smoking Status This section includes the most current smoking, or tobacco-related health factor, from the [place] facility where the Encounter took place. Date/Time Current Smoking Status Comment Lilliam robles Oct 07, 2024 03:30 PM VA-TOBACCO NEVER U SED CIGARETTES [facility] Tobacco Use History This section includes a history of the smoking, or tobacco-related health factors, that were collected on or before the date of the Encounter. The data comes from the [place] facility where the Encounter took place. Date/Time Smoking Status/Tobacco Use Comment F acility Oct 07, 2024 03:30 PM VA-TOBACCO NEVER U SED OTHER TYPE [facility] Sep 29, 2023 08:46 AM VA-TOBACCO FORMER USER [facility] Sep 29, 2023 08:46 AM [place]-TOBACCO QUIT 5 TO < 15 YRS [facility] Pathology Reports: +/- 30 days of the [...] the Encounter. The data comes from all [place] treatment facilities. Date/Time Pathology Report Provider Source Sep 09, 2024 11:18 AM LR MICROBIOLOGY RE PORT: Reporting Lab: [facility] [CLIA# [id number]] [address] [place] [id number] Accession [UID]: [id number] [[id number]] Received: Sep 09, 2024@11:18 Collection sample: URINE CLEAN CATCH Collection date: Sep 09, 2024 11:18 Site/Specimen: URINE Provider: QAMAR CONNOLLY Test(s) ordered: URINE CULTURE(MWROX).......... completed: Sep 13, 2024 10:40 * BACTERIOLOGY FINAL REPORT => Sep 13, 2024 10:40 TECH CODE: [id number] Bacteriology Remark(s): <10,000 CFU/ML GRAM POSITIVE (NOT OTHERWISE SPECIFIED) =--=--=--=--=--=--=--=-- =--=--=--=--=--=--=--=-- =--=--=--=--=--=--=--=-- =--=-- Performing Laboratory: Bacteriology Report Performed By: [facility] [CLIA# [id number]] [address] [place] [address] BRIANNA MILLIGAN [place] [facility] [place] [facility] Encounter Notes: All associated encounter notes This section contains the clinical notes associated to the Encounter. Date/Time Encounter Note(s) Provider Source Oct 07, 2024 03:42 PM PHYSICIAN NOTE: LOCAL TITLE: MD NOTE STANDARD TITLE: PHYSICIAN NOTE DATE OF NOTE: OCT 07, 2024@15:42 ENTRY DATE: OCT 07, 2024@15:42:54 AUTHOR: QAMAR CONNOLLY COSIGNER: URGENCY: STATUS: COMPLETED NEY CONNOR is a 43 year old WHITE FEMALE who is being seen today in primary care for routine yearly follow-up CARE TEAM Community Primary Care Provider: Dr. Gonzalez Altman in [facility] Specialists: Psychiatry- [facility]. Cooper [facility] Specialists: [facility] colonoscopy 2019 HISTORY PERIOD OF SERVICE - [employer] CONNECTED % - 70 SC Percent: 70% Rated Disabilities: POST-TRAUMATIC STRESS DISORDER (70%-SC) [employer]- Lab- [id number], [facility] HISTORY OF PRESENT ILLNESS doing well over the year- no setbacks RELEVANT PAST MEDICAL HISTORY Active problems - Computerized Problem List is the source for the followin. Polycystic Ovary ([facility] [id number]) on spironolactone and tretinoin 2. Chronic Post-Traumatic Stress Disorder ([facility] [id number]) 3. Attention Deficit Hyperactivity Disorder ([facility] [id number]) has psych prescriber outside of [place] 4. Myopia refractive error - myopia 5. Dry eyes dry eye syndrome both eyes 6. Depression 7. Regular astigmatism 8. Closed fracture of metatarsal bone Closed nondisplaced fracture of fourth metatarsal bone of left foot 9. Hypercholesterolemia 10. 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 Alcohol Use: moderate use, currently no ETOH Tobacco Use: remote- 5 years- 1/2 ppd, quit 8 yrs ago Pack Year: Drug Use: denies Exercise: sedentary- trying to go to gym ALLERGIES CONCERTA MEDICATIONS Active and Recently Outpatient Medications (excluding Supplies): Active Outpatient Medications Status 1) SPIRONOLACTONE 25MG TAB TAKE TWO TABLETS BY MOUTH ACTIVE ONCE DAILY FOR FLUID ACCUMULATION 2) SULFAMETHOXAZOLE 800/TRIMETH 160MG TAB TAKE 1 TABLET ACTIVE BY MOUTH TWICE DAILY Active Non-VA Medications Status 1) Non-VA AMPHETAMINE/DEXTROAMPHET 10MG SA CAP 20MG BY ACTIVE MOUTH ONCE DAILY 2) Non-VA BUPROPION HCL 300MG 24HR SA TAB 300MG BY MOUTH ACTIVE ONCE DAILY 3) Non-VA PROPRANOLOL HCL 10MG TAB 10MG BY MOUTH ONCE ACTIVE DAILY 5 Total Medications REVIEW OF SYMPTOMS NEGATIVE FOR: CONSTITUTION: no weight loss/gain, fatigue, fevers, night sweats HEENT: no vision problems, hearing loss,swallowing difficulties, sinus pain CV: no chest pain, palpitations, dyspnea on exertion, orthopnea RESP: no cough, shortness of breath, wheezing BREAST: no breast pain, nipple discharge GI: no abdominal pain, N/V/D, constipation, blood in stool, normal appetite : no urinary frequency, nocturia, hematuria, vaginal discharge or bleeding MUSC: no joint pain, joint swelling, muscle aches NEURO: no headaches, dizziness, memory loss, tremor, weakness PSYCH: no depression, anxiety, suicidal or homicidal thoughts SKIN: no rash, new skin lesions PHYSICAL EXAM Vitals: - - - - - - - B/P: 110/73 (10/07/2024 15:38) pulse: 87 (10/07/2024 15:38) resp: 16 (10/07/2024 15:38) temp: 98.5 F [36.9 C] (10/07/2024 15:38) Ht: 62 in [157.5 cm] (10/07/2023 14:51) Wgt: 166 lb [75.30 kg] (10/07/2024 15:38) BMI: BMI: 30.4 Exam: - - - - - - - RRR S1 S2 LCTA bilat no LE edema RECENT LABS Collection DT Specimen Test Name Result Units Ref Range 10/07/2024 08:30 SERUM CREATININE, Serum 0.76 mg/dL 0.50 - 1.40 eGFR(CKD-EPI 2020 >90 mL/min Ref: >=60 SODIUM 135 mmol/L 135 - 145 POTASSIUM 4.2 mmol/L 3.5 - 5.0 CHLORIDE 103 mmol/L 100 - 110 CO2 23 mEq/L 20 - 30 UREA NITROGEN 13 mg/dL 7 - 25 GLUCOSE 92 mg/dL 65 - 100 CHOLESTEROL 270 H mg/dL <7 - 199 TRIGLYCERIDE 176 H mg/dL 0 - 150 LDL calculated 192 H mg/dL 0 - 129 CHOL/HDL 6.3 HDL CHOLESTEROL 43 mg/dL 40 - 60 ASSESSMENT AND PLAN 1. Hyperlipidemia- still high LDL. previously prescribed atorvastatin by outside PCP. nonsmoker, no HTN, no DM. could imporve her diet, doesn't do much cardio- continue to trend. discussed more plant-base dfoods 2. ADHD- outside prescriber. good BP control 3. PCOS- does have mirena. on spironolactone and tretinoin cream. 4. PTSD- as well as Depression and Anxiety- has outside prescriber- psych-stable overall. no changes in meds 5. family history of breast cancer- [facility] her outside PCP HEALTH MAINTENANCE Colonoscopy - Dr. Gomez [facility] 12/27/20 Mammogram: due: gets yearly- though outside PCP Pap Smear: up to date- outside [employer]OR Tetanus: due every 10 years Pneumonia Vacccine: due at age 67 Flu Vaccine: due yearly Covid Vaccine: due yearly FOLLOW UP f/u in 1 year VISIT TYPE: a MODERATE complexity visit where 30 minutes was spent in direct patient care, review of records and documentation. /adonay/ QAMAR CONNOLLY D.O. PHYSICIAN Signed: 10/07/2024 16:21 QAMAR CONNOLLY [facility] [place] [facility] Oct 07, 2024 03:41 PM PREVENTIVE MEDICINE NURSING NOTE: LOCAL TITLE: CLINICAL REMINDERS/NURSING STANDARD TITLE: PREVENTIVE MEDICINE NURSING NOTE DATE OF NOTE: OCT 07, 2024@15:41 ENTRY DATE: OCT 07, 2024@15:41:11 AUTHOR: DARRICK ESPITIA EXP COSIGNER: URGENCY: STATUS: COMPLETED Suicide Screen: C-SSRS Screening [place] Suicide Severity Rating Scale (C-SSRS) screener 1. Over the past month, have you wished you were or wished you could go to sleep and not wake up? No 2. Over the past month, have you had any actual thoughts of killing yourself? No 3. Over the past month, have you been thinking about how you might do this? Response not required due to responses to other questions. 4. Over the past month, have you had these thoughts and had some intention of acting on them? Response not required due to responses to other questions. 5. Over the past month, have you started to work out or worked out the details of how to kill yourself? Response not required due to responses to other questions. 6. If yes, at any time in the past month did you intend to carry out this plan? Response not required due to responses to other questions. 7. In your lifetime, have you ever done anything, started to do anything, or prepared to do anything to end your life (for example, collected pills, obtained a gun, gave away valuables, went to the roof but didn't jump)? No 8. If YES, was this within the past 3 months? Response not required due to responses to other questions. Homelessness/Food Insecurity Screen: In the past 2 months, have you been living in stable housing that you own, rent, or stay in as part of a household? Yes - Living in stable housing. Are you worried or concerned that in the next 2 months you may NOT have stable housing that you own, rent, or stay in as part of a household? No - Not worried about housing near future The reports the following: Within the past 12 months, you worried whether your food would run out before you got money to buy more. Never true Within the past 12 months, the food you bought just didn't last and you didn't have money to get more. Never true Depression Screening: Perform PHQ-2 A PHQ-2 screen was performed. The score was 0 which is a negative screen for depression. Over the past two weeks, how often have you been bothered by the following problems? 1. Little interest or pleasure in doing things Not at all 2. Feeling down, depressed, or hopeless Not at all Tobacco Use Screening: The patient has never smoked cigarettes. The patient has never used other types of tobacco. Influenza Immunization: The patient has received the seasonal influenza vaccine for the current season at another location. Documented: INFLUENZA, UNSPECIFIED FORMULATION Historical Date Administered: Sep 15, 2024 Series: Complete Outside Location: Outside Healthcare Provider Information Source: FROM OTHER REGISTRY Alcohol Use Screen (AUDIT-C): Alcohol Screen: SCREEN FOR ALCOHOL (AUDIT-C) An alcohol screening test (AUDIT-C) was negative (score=2). 1. How often did you have a drink containing alcohol in the past year? Consider a drink to be a 12 ounce can or bottle of regular beer, 8 ounces of malt liquor, a 5 ounce glass of table wine, or a 1.5 ounce shot of liquor (like scotch, gin, or vodka). Two to four times a month 2. How many drinks containing alcohol did you have on a typical day when you were drinking in the past year? One or two drinks 3. How often did you have 4 or more drinks on one occasion in the past year? Never COVID-19 Immunization: Refused Moderna Monovalent COVID-19 vaccine Immunization: COVID-19 (MODERNA), MRNA, LNP-S, PF, 50 MCG/0.5 ML (AGES 12+ YEARS) Refusal Reason: PATIENT DECISION Patient refuses all immunization(s) in the COVID-19 group Date Documented: 10/07/24 15:43 /adonay/ DARRICK ESPITIA LPN License Practical Nurse Signed: 10/07/2024 15:43 [facility]ITIA [facility]
--- OUTSIDE RECORDS SUMMARY | 2024-11-23 15:21 | XMS_ITS | Encounter Summary ---
Author Name [facility] [place] Address [address] [place] [address] Care Team Providers Care Public Service Administrator Name Role Phone QAMAR CONNOLLY Primary Care Provider Unavailabl e Selected Encounter This section includes the information on record at [place] for the Encounter. Date/Time Encounter Type Encounter Description Reason Provider Source Nov 19, 2024 04:11 PM Outpatient Encounter PRIMARY CARE/MEDICINE DARRICK ESPITIA Encounter Template Text not used by [place] Plan of Treatment: Future Appointments (+ 6 months) and Future Tests (+/- 45 days) The Plan of Treatment section includes future care activities for the patient from all [place] treatmentfacilities. This section includes future appointments and future orders which are active, pending or scheduled. Future Appointments This section includes appointments that were scheduled to occur 6 months from the date of the Encounter, up to a maximum of 20 appointments. The data comes from all [place] treatment facilities. Appointment Date/Time Appointment Type Appointme nt Facility Name Nov 22, 2024 01:30 PM AMBULATORY - PSYCHIATRY [facility] Social History: Smoking Status (Most current) and Tobacco Use (All prior to encounter date) This section includes the most current, and the historical, smoking and tobacco- related health factors from the [place] facility where the Encounter took place. Current Smoking Status This section includes the most current smoking, or tobacco-related health factor, from the [facility] facility where the Encounter took place. Date/Time Current Smoking Status Comment Facil ity Oct 07, 2024 03:30 PM VA-TOBACCO NEVER U SED CIGARETTES [facility] Tobacco Use History This section includes a history of the smoking, or tobacco-related health factors, that were collected on or before the date of the Encounter. The data comes from the [place] facility where the Encounter took place. Date/Time Smoking Status/Tobacco Use Comment F acility Oct 07, 2024 03:30 PM VA-TOBACCO NEVER U SED OTHER TYPE [place] [facility] [place] [facility] Sep 29, 2023 08:46 AM VA-TOBACCO FORMER USER [place] [facility] [place] [facility] Sep 29, 2023 08:46 AM VA-TOBACCO QUIT 5 TO < 15 YRS [facility] Encounter Notes: All associated encounter notes This section contains the clinical notes associated to the Encounter. Date/Time Encounter Note(s) Provider Source Nov 22, 2024 07:58 AM ADDENDUM: LOCAL TITLE: Addendum STANDARD TITLE: ADDENDUM DATE OF NOTE: NOV 22, 2024@07:58:59 ENTRY DATE: NOV 22, 2024@07:59:02 AUTHOR: QAMAR CONNOLLY EXP COSIGNER: URGENCY: STATUS: COMPLETED can you reach out to patient to go over her options? /adonay/ QAMAR CONNOLLY D.O. PHYSICIAN Signed: 11/22/2024 07:59 Receipt Acknowledged By: 11/22/2024 13:53 /es/ VALERIA HONG, PhD STAFF PSYCHOLOGIST === --- Original Document --- 11/19/24 PRIMARY CARE SECURE MESSAGING: ------Original Message ------ Sent: 11/17/2024 04:57 PM ET From: NEY CONNOR To: Alicia CONNOLLY _ PRIMARY CARE_[facility] Subject: General:Mental Health Therapy Request , I would like to request setting up mental health therapy please. Could you please let me know the available options for providers at [facility]? Are there telehealth appointments I could attend outside of [facility]? I may not be comfortable due to being a [facility] employee. Please feel free to contact me with any questions. Thank you, Ney ------Original Message ------ Sent: 11/19/2024 04:11 PM ET From: DARRICK ESPITIA To: NEY CONNOR Subject: General:Mental Health Therapy Request Chiara I will forward your message to the provider and follow up with you once I receive her recommendation. Carmen RODRIGUEZ Primary Care /adonay/ DARRICK ESPITIA LPN License Practical Nurse Signed: 11/19/2024 16:11 Receipt Acknowledged By: 11/22/2024 07:58 /adonay/ QAMAR CONNOLLY D.O. PHYSICIAN QAMAR CONNOLLY [place] [facility] [place] [facility] Nov 19, 2024 04:11 PM PRIMARY CARE SECUR E MESSAGING: LOCAL TITLE: PRIMARY CARE SECURE MESSAGING STANDARD TITLE: PRIMARY CARE SECURE MESSAGING DATE OF NOTE: NOV 19, 2024@16:11 ENTRY DATE: NOV 19, 2024@16:11:45 AUTHOR: DARRICK ESPITIA EXP COSIGNER: URGENCY: STATUS: COMPLETED PRIMARY CARE SECURE MESSAGING Has ADDENDA ------Original Message ------ Sent: 11/17/2024 04:57 PM ET From: NEY CONNOR To: Alicia CONNOLLY [facility] Subject: General:Mental Health Therapy Request , I would like to request setting up mental health therapy please. Could you please let me know the available options for providers at [facility]? Are there telehealth appointments I could attend outside of [facility]? I may not be comfortable due to being a [facility] employee. Please feel free to contact me with any questions. Thank you, Ney ------Original Message ------ Sent: 11/19/2024 04:11 PM ET From: DARRICK ESPITIA To: NEY CONNOR Subject: General:Mental Health Therapy Request Chiara I will forward your message to the provider and follow up with you once I receive her recommendation. Carmen RODRIGUEZ Primary Care /adonay/ DARRICK ESPITIA LPN License Practical Nurse Signed: 11/19/2024 16:11 Receipt Acknowledged By: 11/22/2024 07:58 /adonay/ QAMAR CONNOLLY D.O. PHYSICIAN 11/22/2024 ADDENDUM STATUS: COMPLETED can you reach out to patient to go over her options? /adonay/ QAMAR CONNOLLY D.O. PHYSICIAN Signed: 11/22/2024 07:59 Receipt Acknowledged By: * AWAITING SIGNATURE * VALERIA HONG [place] [facility]
== END 2024-11-23 13:49 | disposition home or self-care (01) ==
PROVIDERS: PCP Internal Medicine; Visit Provider Advanced Practice Midwife
DX: Z97.5 Presence of (intrauterine) contraceptive device (principal); N92.1 Excessive and frequent menstruation with irregular cycle
CPT/HCPCS: 99213

== ENCOUNTER 2024-11-25 14:18 | Outpatient (REF) | payer BC, SELFPAY ==
--- NOTE | ~2024-11-25 | US_ITS ---
EXAMINATION: US PELVIS TRANSABDOMINAL AND TRANSVAGINAL HISTORY: Z97.5 - Presence of (intrauterine) contraceptive device COMPARISON: There are no prior studies for comparison. TECHNIQUE: Transabdominal and endovaginal real-time 2D carter-scale ultrasound was performed. Color Doppler was also performed. FINDINGS: Uterus: The uterus is normal in size, measuring 8.4 x 4.6 x 5.3 cm. Myometrium has a normal echotexture. No fibroids are identified. Endometrium: The endometrial stripe is not well evaluated due to the presence of an IUD which appears in appropriate position. Right ovary: The right ovary measures 3.5 x 2.0 x 2.2 cm. The right ovary is normal in size and echotexture. Left ovary: The left ovary measures 2.5 x 1.4 x 3.1 cm. The left ovary is normal in size and echotexture. Color Doppler analysis of the bilateral ovarian arteries and veins are normal. Pelvic fluid: none. US/US pelvic and transvaginal IMPRESSION: IUD appears in appropriate position. Unremarkable pelvic ultrasound. Electronically signed by: Jose Jim MD 11/25/2024 03:02 PM Y[facility]ONNE
--- OUTSIDE RECORDS SUMMARY | 2024-11-25 16:32 | XMS_ITS | Continuity of Care Document ---
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 [place] [facility] Chronic Post-Traumatic Stress Disorder (SCT [id number]) Active Condition [facility] Polycystic Ovary ([facility] [id number]) Active Condition Oct 07, 2023 Entered By: QAMAR CNONOLLY Comment: on spironolactone and tretinoin [facility] Diagnosis: ICD-10-CM F43.12 Post-traumatic stress disorder, chronic Active Diagnosis [facility] Diagnosis: ICD-10-CM E28.2 Polycystic ovarian syndrome Active Diagnosis [facility] Diagnosis: ICD-10-CM R30.0 Dysuria Active Diagnosis [facility] Diagnosis: ICD-10-CM Z71.89 Other specified counseling Active Diagnosis [facility] Diagnosis: ICD-10-CM Z77.9 Oth contact w and (suspected) exposures hazardous to health Active Diagnosis [facility] Medications Combined list of outpatient medications from [...] ONCE DAILY ORAL ACTIVE [facility]COLO,T [facility] BUPROPION HCL 300MG 24HR TAB,SA TAKE ONE TABLET BY MOUTH ONCE DAILY ORAL ACTIVE FURCOLO,T 2022 [facility] CIPROFLOXAC IN HCL 500MG TAB TAKE ONE TABLET BY MOUTH EVERY 12 HOURS FOR INFECTIO N ORAL 05/23/2024 [id number] Ale LENZ 2023 [facility] METRONIDAZO LE 500MG TAB TAKE ONE TABLET BY MOUTH EVERY 8 HOURS FOR INFECTIO N ORAL 05/23/2024 [id number] Ale LENZ 2023 30 [facility] PROPRANOLOL HCL 10MG TAB TAKE ONE TABLET BY MOUTH ONCE DAILY ORAL ACTIVE FURCOLO,T GREG 2022 [facility] [place] [facility] SPIRONOLACT ONE 25MG TAB TAKE TWO TABLETS BY MOUTH ONCE DAILY FOR FLUID ACCUMULA TION ORAL 10/31/2024 [id number] FURCOLO,T GREG 2023 180 [facility] [place] [facility] SPIRONOLACT ONE 25MG TAB TAKE TWO TABLETS BY MOUTH ONCE DAILY FOR FLUID ACCUMULA TION ORAL 06/21/2024 [id number] 4 FURCOLO,T GREG 2023 180 [facility] [place] [facility] SPIRONOLACT ONE 25MG TAB TAKE TWO TABLETS BY MOUTH ONCE DAILY FOR FLUID ACCUMULA TION ORAL 01/05/2024 [id number] 3 FURCOLO,T GREG 2022 180 [facility] [place] [facility] SULFAMETHOX AZOLE 800MG/TRIME THOPRIM 160MG TAB TAKE 1 TABLET BY MOUTH TWICE DAILY ORAL 10/10/2024 [id number] FURCOLO,T GREG 2023 6 [facility] [place] [facility] TRETINOIN 0.025% CREAM,TOP APPLY A THIN LAYER TOPICALL Y ONCE DAILY FOR ACNE TOPICA L 11/06/2023 [id number] 3 FURCOLO,T GREG 2022 45 [facility] [place] [facility] Allergies, Adverse Reactions, Alerts Combined list of allergies from Department of Defense and Veterans Affairs facilities. It does not include entries that were removed or entered in error. Substance Category Reaction Severity Reaction type Status Date Reported Comments Source CONCERTA Propensity to adverse reactions to drug (finding) Eruption active 3 [facility] [place] [facility] No Known Allergies Drug allergy (disorder) active 8 [employer] Immunizations Combined list of available immunizations from the Department of Defense and Veterans Affairs facilities. 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 [place] [facility] [place] [facility] COVID-19 (MODERNA), MRNA, LNP-S, PF, 100 MCG/0.5ML DOSE OR 50 MCG/0.25ML DOSE 1 2019 207 complet ed Covid card Lot#: [id number] Mfr: [employer] [facility] Next PerformanceU [facility] INFLUENZA, SEASONAL, INJECTABLE 2016 141 complet ed Site: Left Deltoid [facility] Opti-LogicN Next PerformanceCHU [facility] Influenza, seasonal, injectable, preservative free 5 2011 [id number] [employer] (CSL) complet ed Influenza , seasonal, injectabl e, preservat syl free DoD Influenza, seasonal, injectable, preservative free 4 2010 [id number] 140 [employer] (CSL) complet ed Influenza , seasonal, injectabl e, preservat syl free DoD influenza virus vaccine, split virus (incl. purified surface antigen)-reti red CODE 1 2009 [id number] [id number] 15 CSL [employer] (CSL) complet ed influenza virus vaccine, split virus (incl. purified surface antigen)- retired CODE DoD Novel influenza-H1N 1-09, preservative- free, injectable 1 2008 [id number] 126 Novartis Event[employer] Sapheneia. (NOV) complet ed Novel influenza -[id number], preservat syl-free, injectabl e DoD hepatitis B vaccine, adult dosage 0 2008 43 () Not Given hepatitis B vaccine, adult dosage DoD influenza virus vaccine, split virus (incl. purified surface antigen)-reti red CODE 1 2008 [id number] 1A 15 [employer] (CSL) complet ed influenza virus vaccine, split virus (incl. purified surface antigen)- retired CODE DoD hepatitis A and hepatitis B vaccine 3 2008 [id number] 104 [employer]line (SKB) complet ed hepatitis A and hepatitis B vaccine DoD HEP A-HEP B 3 2008 104 complet ed hepatitis A and hepatitis B vaccine-J /[facility] Lot#: [id number] [facility] influenza virus vaccine, live, attenuated, for intranasal use 1 2007 [id number] Department of Health and Human Services. (MED) complet ed influenza virus vaccine, live, attenuate d, for intranasa l use DoD hepatitis A and hepatitis B vaccine 2 2007 [id number] 6AA 104 [employer] (SKB) complet ed hepatitis A and hepatitis B vaccine DoD HEP A-HEP B 2 2007 104 complet ed hepatitis A and hepatitis B vaccine-J /[facility] Lot#: [id number] A [facility] measles, mumps and rubella virus vaccine 1 2007 03 () Not Given measles, mumps and rubella virus vaccine DoD varicella virus vaccine 1 2007 21 () Not Given varicella virus vaccine DoD hepatitis A and hepatitis B vaccine 1 2007 [id number] 3AA 104 [employer] (SKB) complet ed hepatitis A and hepatitis B vaccine DoD HEP A-HEP B 1 2007 104 complet ed hepatitis A and hepatitis B vaccine-J /[facility] Lot#: [id number] A [facility] poliovirus vaccine, inactivated 1 2007 [id number] Sanofi Pasteur (PMC) complet ed polioviru s vaccine, inactivat ed [facility] meningococcal polysaccharid e (groups A, C, Y and W-135) diphtheria toxoid conjugate vaccine (MCV4P) 1 2007 [id number] Sanofi Pasteur (PMC) complet ed meningoco ccal polysacch aride (groups A, C, Y and W-135) diphtheri a toxoid conjugate vaccine (MCV4P) DoD tetanus toxoid, reduced diphtheria toxoid, and acellular pertu is vaccine, adsorbed 1 2007 [id number] Sanofi Pasteur (PMC) complet ed tetanus toxoid, reduced diphtheri a toxoid, and acellular pertussis vaccine, adsorbed DoD DTAP 3 2007 20 complet ed tetanus toxoid, reduced diphtheri a toxoid, and acellular pertussis vaccine, adsorbed- JLV/DOD Lot#: [id number] Mfr: SANOFI PASTEUR [facility] Opti-LogicTRN Next PerformanceCHU SET[facility] MENINGOCOCCAL MCV4P 1 2007 114 complet ed meningoco ccal polysacch aride (groups A, C, Y and W-135) diphtheri a toxoid conjugate vaccine (MCV4P)-J /DOD Lot#: [id number] Mfr: SANOFI PASTEUR [facility] Next PerformanceU SET[facility] POLIO, UNSPECIFIED FORMULATION 1 2007 89 complet ed polioviru s vaccine, inactivat ed-JLV/DO D Lot#: [id number] Mfr: [facility] Opti-LogicN Next PerformanceU SET[place] [facility] Results Combined list of recent chemistry, hematology and other laboratory results from Department of Defense and Veterans Affairs, ranging from 15 months to all on record, depending upon the facility. Order Name Results Value Reference Range Date Interpretation Specimen Comments Source BASIC METABOLI C PANEL (fasting ) UREA NITROGEN [MASS/VOLU ME] IN SERUM OR PLASMA 13 mg/dL 7 - 25 10/07 Specimen Type: SERUM No comment entered. Ordering Provider: TAYE CONNOLLY Report Released Date/Time: Sep 22, 2024 12:58 PM Reporting Lab: [facility] [address] [facility] [address] Performing Lab: [facility] [address] [facility] [address] [facility] Next PerformanceUSE [facility] BASIC METABOLI C PANEL (fasting ) GLUCOSE [MASS/VOLU ME] IN SERUM OR PLASMA 92 mg/dL 65 - 100 10/07 Specimen Type: SERUM No comment entered. Ordering Provider: TAYE CONNOLLY Report Released Date/Time: Sep 22, 2024 12:58 PM Reporting Lab: [facility] [address] [facility] [address] Performing Lab: [facility] [address] [facility] [address] [facility] BASIC METABOLI C PANEL (fasting ) SODIUM [MOLES/VOL UME] IN SERUM OR PLASMA 135 mmol/L 135 - 145 10/07 Specimen Type: SERUM No comment entered. Ordering Provider: TAYE CONNOLLY Report Released Date/Time: Sep 22, 2024 12:58 PM Reporting Lab: [facility] [place] [address] [address] Performing Lab: [facility] [place] [address] [address] [facility] [place] [facility] BASIC METABOLI C PANEL (fasting ) POTASSIUM [MOLES/VOL UME] IN SERUM OR PLASMA 4.2 mmol/L 3.5 - 5.0 10/07 Specimen Type: SERUM No comment entered. Ordering Provider: TAYE CONNOLLY Report Released Date/Time: Sep 22, 2024 12:58 PM Reporting Lab: [facility] [place] [address] [address] Performing Lab: [place] [facility] [place] [address] [address] [facility]ITALRBROOKWO[facility] CENTERTRN MASSUSE [facility] BASIC METABOLI C PANEL (fasting ) CHLORIDE [MOLES/VOL UME] IN SERUM OR PLASMA 103 mmol/L 100 - 110 10/07 Specimen Type: SERUM No comment entered. Ordering Provider: TAYE CONNOLLY Report Released Date/Time: Sep 22, 2024 12:58 PM Reporting Lab: [facility] [place] [address] [address] Performing Lab: [place] [facility] [place] [address] [address] [facility] [place] [facility] BASIC METABOLI C PANEL (fasting ) CARBON DIOXIDE, TOTAL [MOLES/VOL UME] IN SERUM OR PLASMA 23 meq/L 20 - 30 10/07 Specimen Type: SERUM No comment entered. Ordering Provider: TAYE CONNOLLY Report Released Date/Time: Sep 22, 2024 12:58 PM Reporting Lab: [facility] [place] [address] [address] Performing Lab: [facility] [place] [facility] [address] [facility] [address] [facility] [facility] BASIC METABOLI C PANEL (fasting ) CREATININE [MASS/VOLU ME] IN SERUM OR PLASMA 0.76 mg/dL 0.50 - 1.40 10/07 Specimen Type: SERUM No comment entered. Ordering Provider: TAYE CONNOLLY Report Released Date/Time: Sep 22, 2024 12:58 PM Reporting Lab: [facility] [place] [facility] [address] [facility] [address] Performing Lab: [place] [facility] [place] [address] [address] [facility] BASIC METABOLI C PANEL (fasting ) GLOMERULAR FILTRATION RATE/1.73 SQ M.PREDICTE D [VOLUME RATE/AREA] IN SERUM, PLASMA OR BLOOD BY CREATININE -BASED FORMULA (CKD-EPI 2020) >90mL/mi n 60 10/07 Specimen Type: SERUM No comment entered. Ordering Provider: TAYE CONNOLLY Report Released Date/Time: Sep 22, 2024 12:58 PM Reporting Lab: [facility] [place] [address] [address] Performing Lab: [place] [facility] [address] [address] [facility]RL TRN [facility]USE [facility] LIPID PANEL FASTING CHOLESTERO L [MASS/VOLU ME] IN SERUM OR PLASMA 270 mg/dL 10/07 H Specimen Type: SERUM No comment entered. Ordering Provider: TAYE CONNOLLY Report Released Date/Time: Sep 22, 2024 12:58 PM Reporting Lab: [facility] [place] [address] [address] Performing Lab: [place] [facility] [address] [address] [facility] LIPID PANEL FASTING TRIGLYCERI DE [MASS/VOLU ME] IN SERUM OR PLASMA 176 mg/dL 0 - 150 11/21 /2024 H Specimen Type: SERUM No comment entered. Ordering Provider: TAYE CONNOLLY Report Released Date/Time: Sep 22, 2024 12:58 PM Reporting Lab: [facility] [place] [facility] [address] [facility] [address] Performing Lab: [facility] [place] [facility] [address] [facility] [address] [facility] [place] [facility] LIPID PANEL FASTING CHOLESTERO L IN LDL [MASS/VOLU ME] IN SERUM OR PLASMA BY [place] N 192 mg/dL 0 - 129 10/07 H Specimen Type: SERUM No comment entered. Ordering Provider: TAYE CONNOLLY Report Released Date/Time: Sep 22, 2024 12:58 PM Reporting Lab: [facility] [place] [address] [address] Performing Lab: [facility]ENTERUS[facility] [address] [address] [facility] LIPID PANEL FASTING CHOLESTERO L.TOTAL/CH OLESTEROL IN HDL [MASS RATIO] IN SERUM OR PLASMA 6.3 10/07 Specimen Type: SERUM No comment entered. Ordering Provider: TAYE CONNOLLY Report Released Date/Time: Sep 22, 2024 12:58 PM Reporting Lab: [facility] [place] [address] [address] Performing Lab: [facility]ENTER[facility] [address] [address] [facility] LIPID PANEL FASTING CHOLESTERO L IN HDL [MASS/VOLU ME] IN SERUM OR PLASMA 43 mg/dL 40 - 60 10/07 Specimen Type: SERUM No comment entered. Ordering Provider: TAYE CONNOLLY Report Released Date/Time: Sep 22, 2024 12:58 PM Reporting Lab: [facility] [place] [address] [address] Performing Lab: [facility] [place] [address] [address] [facility] [place] [facility] MICROSCO PIC AUTOMATE D, URINE LEUKOCYTES [#/AREA] IN URINE SEDIMENT BY MICROSCOPY HIGH POWER FIELD TNTC/[HP F] 0 - 5 09/10 Specimen Type: URINE Comment: If Glucose = >500 and Ketones are positive, please alert the Physician. Ordering Provider: TAYE CONNOLLY Report Released Date/Time: Sep 10, 2024 02:12 PM Reporting Lab: [facility] [address] [address] Performing Lab: [facility] HOSPITALRBROOKWOOD BAPTIST MEDICAL CENTERTRN [facility]ENTERUSE[address] [address] [facility]ENTERUSE [facility] MICROSCO PIC AUTOMATE D, URINE BACTERIA [#/AREA] IN URINE SEDIMENT BY MICROSCOPY HIGH POWER FIELD 1+/[HPF] 09/10 Specimen Type: URINE Comment: If Glucose = >500 and Ketones are positive, please alert the Physician. Ordering Provider: TAYE CONNOLLY Report Released Date/Time: Sep 10, 2024 02:12 PM Reporting Lab: [facility]OSPITALRBROOKWOOD BAPTIST MEDICAL CENTERTRN [facility] CENTERUSE[address] [address] Performing Lab: [facility] HOSPITALRBROOKWOOD BAPTIST MEDICAL CENTERTRN [facility] CENTERUSE[address] [address] [facility]ENTERUSE [facility] MICROSCO PIC AUTOMATE D, URINE ERYTHROCYT ES [#/AREA] IN URINE SEDIMENT BY MICROSCOPY HIGH POWER FIELD 11-20/[H PF] 0 - 3 09/10 H Specimen Type: URINE Comment: If Glucose = >500 and Ketones are positive, please alert the Physician. Ordering Provider: TAYE CONNOLLY Report Released Date/Time: Sep 10, 2024 02:12 PM Reporting Lab: [facility]OSPITALRBROOKWOOD BAPTIST MEDICAL CENTERTRN [facility] [address] [address] Performing Lab: [facility] HOSPITALRBROOKWOOD BAPTIST MEDICAL CENTERTRN [facility] CENTERUSE[address] [address] [facility]LECHUSE [facility] MICROSCO PIC AUTOMATE D, URINE EPITHELIAL CELLS.SQUA MOUS [#/AREA] IN URINE SEDIMENT BY MICROSCOPY HIGH POWER FIELD FEW/[HPF ] 09/10 Specimen Type: URINE Comment: If Glucose = >500 and Ketones are positive, please alert the Physician. Ordering Provider: TAYE CONNOLLY Report Released Date/Time: Sep 10, 2024 02:12 PM Reporting Lab: [facility] [place] [facility] [address] [facility] [address] Performing Lab: [facility] [place] [facility] [address] [facility] [address] [facility] [place] [facility] MICROSCO PIC AUTOMATE D, URINE LEUKOCYTE CLUMPS [#/VOLUME] IN URINE BY AUTOMATED COUNT PRESENT/ [HPF] 09/10 Specimen Type: URINE Comment: If Glucose = >500 and Ketones are positive, please alert the Physician. Ordering Provider: TAYE CONNOLLY Report Released Date/Time: Sep 10, 2024 02:12 PM Reporting Lab: [facility] [place] [facility] [address] [facility] [address] Performing Lab: [facility] [place] [address] [address] [facility] [place] [facility] URINALYS IS CLEAN CATCH COLOR OF URINE Yellow 09/10 Specimen Type: URINE Comment: If Glucose = >500 and Ketones are positive, please alert the Physician. Ordering Provider: TAYE CONNOLLY Report Released Date/Time: Sep 10, 2024 02:12 PM Reporting Lab: [facility] [place] [facility] [address] [facility] [address] Performing Lab: [facility] [place] [facility] [address] [facility] [address] [facility] [place] [facility] URINALYS IS CLEAN CATCH APPEARANCE OF URINE Turbid 09/10 Specimen Type: URINE Comment: If Glucose = >500 and Ketones are positive, please alert the Physician. Ordering Provider: TAYE CONNOLLY Report Released Date/Time: Sep 10, 2024 02:12 PM Reporting Lab: [facility] [place] [facility] [address] [facility] [address] Performing Lab: [facility] [place] [address] [address] [facility] [place] [facility] URINALYS IS CLEAN CATCH GLUCOSE [MASS/VOLU ME] IN URINE Normalmg /dL 09/10 Specimen Type: URINE Comment: If Glucose = >500 and Ketones are positive, please alert the Physician. Ordering Provider: TAYE CONNOLLY Report Released Date/Time: Sep 10, 2024 02:12 PM Reporting Lab: [facility]OSPITALRBROOKWOOD BAPTIST MEDICAL CENTERTRN [facility] CENTERUSETS [address] [address] Performing Lab: [facility]OSPITALRBROOKWOOD BAPTIST MEDICAL CENTERTRN [facility] CENTERUSETS [address] [address] [facility]ITALRMEDICAL CENTER ENTERPRISEN [place] URINALYS IS CLEAN CATCH KETONES [MASS/VOLU ME] IN URINE BY TEST STRIP NEGATIVE mg/dL 09/10 Specimen Type: URINE Comment: If Glucose = >500 and Ketones are positive, please alert the Physician. Ordering Provider: TAYE CONNOLLY Report Released Date/Time: Sep 10, 2024 02:12 PM Reporting Lab: [facility] CENTERUSETS [address] [address] Performing Lab: [facility]OSPITALRBROOKWOOD BAPTIST MEDICAL CENTERTRN [facility] CENTERUSETS [address] [address] [facility] URINALYS IS CLEAN CATCH ERYTHROCYT ES [PRESENCE] IN URINE SEDIMENT BY LIGHT MICROSCOPY NEGATIVE mg/dL 09/10 Specimen Type: URINE Comment: If Glucose = >500 and Ketones are positive, please alert the Physician. Ordering Provider: TAYE CONNOLLY Report Released Date/Time: Sep 10, 2024 02:12 PM Reporting Lab: [facility]PITALRBROOKWOOD BAPTIST MEDICAL CENTERTRN [place] [address] [address] Performing Lab: [facility]ITALRBROOKWOOD BAPTIST MEDICAL CENTERTRN [place] [address] [address] [facility]ITALRBROOKWOOD BAPTIST MEDICAL CENTERTRN [place] TS [facility] URINALYS IS CLEAN CATCH PROTEIN [MASS/VOLU ME] IN URINE BY TEST STRIP 20 mg/dL 09/10 Specimen Type: URINE Comment: If Glucose = >500 and Ketones are positive, please alert the Physician. Ordering Provider: TAYE CONNOLLY Report Released Date/Time: Sep 10, 2024 02:12 PM Reporting Lab: [facility]ITALRL [facility] [place] [facility] [address] [facility] [address] Performing Lab: [facility] [place] [facility] [address] [facility] [address] [facility] [place] [facility] URINALYS IS CLEAN CATCH NITRITE [PRESENCE] IN URINE NEGATIVE mg/dL 09/10 Specimen Type: URINE Comment: If Glucose = >500 and Ketones are positive, please alert the Physician. Ordering Provider: TAYE CONNOLLY Report Released Date/Time: Sep 10, 2024 02:12 PM Reporting Lab: [facility] [place] [facility] [address] [facility] [address] Performing Lab: [place] [facility] [place] [facility] [address] [facility] [address] [facility] [place] [facility] URINALYS IS CLEAN CATCH BILIRUBIN. TOTAL [PRESENCE] IN URINE NEGATIVE mg/dL 09/10 Specimen Type: URINE Comment: If Glucose = >500 and Ketones are positive, please alert the Physician. Ordering Provider: TAYE CONNOLLY Report Released Date/Time: Sep 10, 2024 02:12 PM Reporting Lab: [place] [facility] [place] [address] [address] Performing Lab: [place] [facility] [place] [address] [address] [facility] [place] [facility] URINALYS IS CLEAN CATCH SPECIFIC GRAVITY OF URINE BY REFRACTOME TRY 1.024 1.016 - 1.022 09/10 H Specimen Type: URINE Comment: If Glucose = >500 and Ketones are positive, please alert the Physician. Ordering Provider: TAYE CONNOLLY Report Released Date/Time: Sep 10, 2024 02:12 PM Reporting Lab: [facility] [place] [facility] [address] [facility] [address] Performing Lab: [facility] [place] [address] [address] [facility] [place] [facility] URINALYS IS CLEAN CATCH PH OF URINE BY TEST STRIP 6.5 5.0 - 9.0 09/10 Specimen Type: URINE Comment: If Glucose = >500 and Ketones are positive, please alert the Physician. Ordering Provider: TAYE CONNOLLY Report Released Date/Time: Sep 10, 2024 02:12 PM Reporting Lab: [facility] [place] [facility] [address] [facility] [address] Performing Lab: [facility] [address] [phone] [facility] [facility] [place] [facility] URINALYS IS CLEAN CATCH UROBILINOG EN [MASS/VOLU ME] IN URINE BY TEST STRIP Normalmg /dL <2.0 - 2.0 09/10 Specimen Type: URINE Comment: If Glucose = >500 and Ketones are positive, please alert the Physician. Ordering Provider: TAYE CONNOLLY Report Released Date/Time: Sep 10, 2024 02:12 PM Reporting Lab: [facility]RBROOKWO[facility]ICAL CENTERTRN MASSUSE[address] [address] Performing Lab: [facility] TRN [place] [address] [address] [facility]ITALRBROOKWOOD BAPTIST MEDICAL CENTERTRN [place] TS [facility] URINALYS IS CLEAN CATCH LEUKOCYTE ESTERASE [PRESENCE] IN URINE BY TEST STRIP LARGE 09/10 Specimen Type: URINE Comment: If Glucose = >500 and Ketones are positive, please alert the Physician. Ordering Provider: TAYE CONNOLLY Report Released Date/Time: Sep 10, 2024 02:12 PM Reporting Lab: [facility]ITALRBROOKWOOD BAP[facility]IST MEDICAL CENTERTRN [facility] CENTERUSETS [address] [address] Performing Lab: [facility] [place] [facility] [address] [facility] [address] [facility] [place] [facility] URINALYS IS COLOR OF URINE Light-Ye llow 09/09 Specimen Type: URINE Comment: If Glucose = >500 and Ketones are positive, please alert the Physician. Ordering Provider: TAYE CONNOLLY Report Released Date/Time: Sep 09, 2024 11:14 AM Reporting Lab: [facility]ITALRBROOKWOOD [facility]ICAL CENTERTRN [place] [address] [address] Performing Lab: [facility]ITALRBROOKWOOD [facility] CENTERTRN [place] [facility] [address] [facility] [address] [facility]ITALRBROOKWO[facility] CENTERTRN [place] [facility] URINALYS IS APPEARANCE OF URINE Clear 09/09 Specimen Type: URINE Comment: If Glucose = >500 and Ketones are positive, please alert the Physician. Ordering Provider: TAYE CONNOLLY Report Released Date/Time: Sep 09, 2024 11:14 AM Reporting Lab: [facility]ITALRBROOKWOOD [facility]ICAL CENTERTRN [place] [address] [address] Performing Lab: [facility]ITAL[facility] [place] [facility] [address] [facility] [address] [facility] URINALYS IS GLUCOSE [MASS/VOLU ME] IN URINE Normalmg /dL 09/09 Specimen Type: URINE Comment: If Glucose = >500 and Ketones are positive, please alert the Physician. Ordering Provider: TAYE CONNOLLY Report Released Date/Time: Sep 09, 2024 11:14 AM Reporting Lab: [facility]ITALRBROOKWO[facility] CENTERTRN [place] [facility] [address] [facility] [address] Performing Lab: [facility]ITALRBROOKWOOD [facility] CENTERTRN [place] [facility] [address] [facility] [address] [facility] C[facility] ENTERPRISEN [facility] URINALYS IS KETONES [MASS/VOLU ME] IN URINE BY TEST STRIP NEGATIVE mg/dL 09/09 Specimen Type: URINE Comment: If Glucose = >500 and Ketones are positive, please alert the Physician. Ordering Provider: TAYE CONNOLLY Report Released Date/Time: Sep 09, 2024 11:14 AM Reporting Lab: [facility]ITALRBROOKWO[facility] MEDICAL CENTERTRN [place] [facility] [address] [facility] [address] Performing Lab: [facility]ITALRBROOKWOOD BAP[facility]IST MEDICAL CENTERTRN [place] [address] [address] [facility]ITALRMEDICAL CENTER ENTERPRISEN [place] [facility] URINALYS IS ERYTHROCYT ES [PRESENCE] IN URINE SEDIMENT BY LIGHT MICROSCOPY NEGATIVE mg/dL 09/09 Specimen Type: URINE Comment: If Glucose = >500 and Ketones are positive, please alert the Physician. Ordering Provider: TAYE CONNOLLY Report Released Date/Time: Sep 09, 2024 11:14 AM Reporting Lab: [facility] [place] [facility] [address] [facility] [address] Performing Lab: [place] [facility] [facility] [address] [facility] [address] [facility] [place] [facility] URINALYS IS PROTEIN [MASS/VOLU ME] IN URINE BY TEST STRIP NEGATIVE mg/dL 09/09 Specimen Type: URINE Comment: If Glucose = >500 and Ketones are positive, please alert the Physician. Ordering Provider: TAYE CONNOLLY Report Released Date/Time: Sep 09, 2024 11:14 AM Reporting Lab: [place] [facility] [place] [facility] [address] [facility] [address] Performing Lab: [place] [facility] [facility] [address] [facility] [address] [facility] [place] [facility] URINALYS IS NITRITE [PRESENCE] IN URINE NEGATIVE mg/dL 09/09 Specimen Type: URINE Comment: If Glucose = >500 and Ketones are positive, please alert the Physician. Ordering Provider: TAYE CONNOLLY Report Released Date/Time: Sep 09, 2024 11:14 AM Reporting Lab: [place] [facility] [place] [facility] [address] [facility] [address] Performing Lab: [facility] [place] [facility] [address] [facility] [address] [place] [facility] [place] [facility] URINALYS IS BILIRUBIN. TOTAL [PRESENCE] IN URINE NEGATIVE mg/dL 09/09 Specimen Type: URINE Comment: If Glucose = >500 and Ketones are positive, please alert the Physician. Ordering Provider: TAYE CONNOLLY Report Released Date/Time: Sep 09, 2024 11:14 AM Reporting Lab: [place] [facility] [place] [facility] [address] [facility] [address] Performing Lab: [facility] [place] [facility] [address] [facility] [address] [facility] [place] [facility] URINALYS IS SPECIFIC GRAVITY OF URINE BY REFRACTOME TRY 1.007 1.016 - 1.022 09/09 L Specimen Type: URINE Comment: If Glucose = >500 and Ketones are positive, please alert the Physician. Ordering Provider: TAYE CONNOLLY Report Released Date/Time: Sep 09, 2024 11:14 AM Reporting Lab: [facility]PITALRBROOKWOOD BAPTIST MEDICAL CENTERTRN [facility] CENTERUSETS [facility] [address] [facility] [address] Performing Lab: [facility] [address] [address] [facility]N [facility] CENTERUSE [facility] URINALYS IS PH OF URINE BY TEST STRIP 6.0 5.0 - 9.0 09/09 Specimen Type: URINE Comment: If Glucose = >500 and Ketones are positive, please alert the Physician. Ordering Provider: TAYE CONNOLLY Report Released Date/Time: Sep 09, 2024 11:14 AM Reporting Lab: [facility]N [facility] CENTERUSE[address] [address] Performing Lab: [facility]N [facility] CENTERUSE[address] [address] [facility]N [facility] CENTERUSE [facility] URINALYS IS UROBILINOG EN [MASS/VOLU ME] IN URINE BY TEST STRIP Normalmg /dL <2.0 - 2.0 09/09 Specimen Type: URINE Comment: If Glucose = >500 and Ketones are positive, please alert the Physician. Ordering Provider: TAYE CONNOLLY Report Released Date/Time: Sep 09, 2024 11:14 AM Reporting Lab: [facility]PITALRBROOKWOOD BAPTIST MEDICAL CENTERTRN [facility] CENTERUSETS [address] [address] Performing Lab: [facility]PITALRBROOKWOOD BAPTIST MEDICAL CENTERTRN [facility] CENTERUSETS [address] [address] [facility]ITALRMEDICAL CENTER ENTERPRISEN [facility] CENTERUSE [facility] URINALYS IS LEUKOCYTE ESTERASE [PRESENCE] IN URINE BY TEST STRIP NEGATIVE 09/09 Specimen Type: URINE Comment: If Glucose = >500 and Ketones are positive, please alert the Physician. Ordering Provider: TAYE CONNOLLY Report Released Date/Time: Sep 09, 2024 11:14 AM Reporting Lab: [facility]ITALRMEDICAL CENTER ENTERPRISEN [facility] CENTERUSE[address] [address] Performing Lab: [facility]PITALRBROOKWOOD BAPTIST MEDICAL CENTERTRN [facility] CENTERUSETS [facility] [address] [facility] [address] [facility]ITALRBROOKWOOD BAPTIST MEDICAL CENTERTRN [facility] CENTERUSE [facility] BASIC METABOLI C PANEL (fasting ) UREA NITROGEN [MASS/VOLU ME] IN SERUM OR PLASMA 11 mg/dL 7 - 25 10/08 Specimen Type: SERUM No comment entered. Ordering Provider: TAYE CONNOLLY Report Released Date/Time: Oct 07, 2023 03:59 PM Reporting Lab: [facility]ITALRL TRN MASSUSE[address] [address] Performing Lab: [facility]PITALRBROOKWOOD BAPTIST MEDICAL CENTERTRN [facility] CENTERUSE[address] [address] [facility]ITALRMEDICAL CENTER ENTERPRISEN [facility] CENTERUSE [facility] BASIC METABOLI C PANEL (fasting ) GLUCOSE [MASS/VOLU ME] IN SERUM OR PLASMA 94 mg/dL 65 - 100 10/08 Specimen Type: SERUM No comment entered. Ordering Provider: TAYE CONNOLLY Report Released Date/Time: Oct 07, 2023 03:59 PM Reporting Lab: [facility]ITALRL TRN [facility] CENTERUSETS [address] [address] Performing Lab: [facility]ITALRL TRN [facility] CENTERUSE[address] [address] [facility]ITALRMED[facility]ENTER ENTERPRISEN [facility] CENTERUSE [facility] BASIC METABOLI C PANEL (fasting ) SODIUM [MOLES/VOL UME] IN SERUM OR PLASMA 137 mmol/L 135 - 145 10/08 Specimen Type: SERUM No comment entered. Ordering Provider: ATYE CONNOLLY Report Released Date/Time: Oct 07, 2023 03:59 PM Reporting Lab: [facility]ITALRL TRN [address] [address] Performing Lab: [facility]ITALRL TRN [facility] CENTERUSE[address] [address] [facility]ITALRMED[facility] CENTER ENTERPRISEN [facility] CENTERUSE [facility] BASIC METABOLI C PANEL (fasting ) POTASSIUM [MOLES/VOL UME] IN SERUM OR PLASMA 4.0 mmol/L 3.5 - 5.0 10/08 Specimen Type: SERUM No comment entered. Ordering Provider: TAYE CONNOLLY Report Released Date/Time: Oct 07, 2023 03:59 PM Reporting Lab: [place] [facility] [place] [facility] [address] [facility] [address] Performing Lab: [place] [facility] [address] [facility] [address] [facility]ITALRL WSTRN [place] [facility] BASIC METABOLI C PANEL (fasting ) CHLORIDE [MOLES/VOL UME] IN SERUM OR PLASMA 105 mmol/L 100 - 110 10/08 Specimen Type: SERUM No comment entered. Ordering Provider: TAYE CONNOLLY Report Released Date/Time: Oct 07, 2023 03:59 PM Reporting Lab: [facility]ITALRL [place] [facility] [address] [facility] [address] Performing Lab: [place] CN[facility] [facility] CENTERUSE[address] [address] [facility]OSPITALRBROOKWOOD BAPTIST MEDICAL CENTERTRN [facility] CENTERUSE [facility] BASIC METABOLI C PANEL (fasting ) CARBON DIOXIDE, TOTAL [MOLES/VOL UME] IN SERUM OR PLASMA 24 meq/L 20 - 30 10/08 Specimen Type: SERUM No comment entered. Ordering Provider: TAYE CONNOLLY Report Released Date/Time: Oct 07, 2023 03:59 PM Reporting Lab: [facility]ITALRL [facility] [address] [address] Performing Lab: [place] CN[facility] [facility] CENTERUSETS [address] [address] [facility]OSPITALRL TRN [facility] CENTERUSE [facility] BASIC METABOLI C PANEL (fasting ) CREATININE [MASS/VOLU ME] IN SERUM OR PLASMA 0.82 mg/dL 0.50 - 1.40 10/08 Specimen Type: SERUM No comment entered. Ordering Provider: TAYE CONNOLLY Report Released Date/Time: Oct 07, 2023 03:59 PM Reporting Lab: [facility]ITALRL [facility] [address] [address] Performing Lab: [place] [facility] [place] [facility] CENTERUSETS [address] [address] [facility]ITALRL WSTRN [place] [facility] BASIC METABOLI C PANEL (fasting ) GLOMERULAR FILTRATION RATE/1.73 SQ M.PREDICTE D [VOLUME RATE/AREA] IN SERUM, PLASMA OR BLOOD BY CREATININE -BASED FORMULA (CKD-EPI 2020) >90mL/mi n 60 10/08 Specimen Type: SERUM No comment entered. Ordering Provider: TAYE CONNOLLY Report Released Date/Time: Oct 07, 2023 03:59 PM Reporting Lab: [facility]PITALRBROOKWOOD BAPTIST MEDICAL CENTERTRN [facility] CENTERUSE[address] [address] Performing Lab: [facility]PITALRL WSTRN [facility] CENTERUSE[address] [address] [facility]ITALRL TRN [facility]ENTERUSE [facility] LIPID PANEL FASTING CHOLESTERO L [MASS/VOLU ME] IN SERUM OR PLASMA 239 mg/dL 10/08 H Specimen Type: SERUM No comment entered. Ordering Provider: TAYE CONNOLLY Report Released Date/Time: Oct 07, 2023 03:59 PM Reporting Lab: [facility]ITALRMED[facility] CENTER ENTERPRISEN [address] [address] Performing Lab: [facility]OSPITALRL TRN [address] [address] [facility]ITALRMED[facility] CENTER ENTERPRISEN [facility] LIPID PANEL FASTING TRIGLYCERI DE [MASS/VOLU ME] IN SERUM OR PLASMA 103 mg/dL 0 - 150 10/08 Specimen Type: SERUM No comment entered. Ordering Provider: TAYE CONNOLLY Report Released Date/Time: Oct 07, 2023 03:59 PM Reporting Lab: [facility]ITALR[facility]TER[facility]EN [address] [address] Performing Lab: [facility]ITALRL TRN [facility] CENTERUSE[address] [address] [facility]ITALRL TRN [facility]ENTERUSE [facility] LIPID PANEL FASTING CHOLESTERO L IN LDL [MASS/VOLU ME] IN SERUM OR PLASMA BY CALCULATIO N 184 mg/dL 0 - 129 10/08 H Specimen Type: SERUM No comment entered. Ordering Provider: TAYE CONNOLLY Report Released Date/Time: Oct 07, 2023 03:59 PM Reporting Lab: [facility]PITALRBROOKWOOD BAPTIST MEDICAL CENTERTRN [facility] CENTERUSE[address] [address] Performing Lab: [facility]ITALRL TRN [facility] CENTERUSE[address] [address] [place] [facility] [place] [facility] LIPID PANEL FASTING CHOLESTERO L.TOTAL/CH OLESTEROL IN HDL [MASS RATIO] IN SERUM OR PLASMA 7.0 10/08 Specimen Type: SERUM No comment entered. Ordering Provider: TAYE CONNOLLY Report Released Date/Time: Oct 07, 2023 03:59 PM Reporting Lab: [facility] [place] [facility] [address] [facility] [address] Performing Lab: [facility] [place] [facility] [address] [facility] [address] [place] [facility] [place] [facility] LIPID PANEL FASTING CHOLESTERO L IN HDL [MASS/VOLU ME] IN SERUM OR PLASMA 34 mg/dL 40 - 60 10/08 L Specimen Type: SERUM No comment entered. Ordering Provider: TAYE CONNOLLY Report Released Date/Time: Oct 07, 2023 03:59 PM Reporting Lab: [facility] [place] [facility] [address] [facility] [address] Performing Lab: [facility] [place] [facility] [address] [facility] [address] [place] [facility] [place] [facility] TSH THYROTROPI N [UNITS/VOL UME] IN SERUM OR PLASMA 2.12 u[IU]/mL 0.35 - 5.00 10/08 Specimen Type: SERUM No comment entered. Ordering Provider: TAYE CONNOLLY Report Released Date/Time: Oct 07, 2023 03:59 PM Reporting Lab: [facility] [place] [facility] [address] [facility] [address] Performing Lab: [facility] [place] [place] [address] [address] [place] [facility] [place] [facility] Vital Signs Combined list of inpatient and outpatient Vital Signs from Department of Defense and Veterans Affairs, ranging from 12 months to all on record, depending upon the facility. Vital Sign Value Date Comments Source SYSTOLIC BLOOD PRESSURE 110 10/07/20 24 15:38:12 [place] [facility] [place] [facility] DIASTOLIC BLOOD PRESSURE 73 024 15:38:12 [facility] [place] [facility] PULSE OXIMETRY 96 10/07/2024 15:38:12 [facility] [...] RESPIRATION 18 04/23/2024 15:05:46 [facility] [place] [facility] Encounters Combined list of: 1) Encounters from Department of Veterans Affairs facilities going back up to thelast 18 months. 2) Encounters from the Department of Defense facilities going back up to 280 months. Location Location Details Encounter Type Encounter Number Reason For Visit Attending Provider ADM Date DC Date Status Disposition Source [facility] [place] [address] [employer] [facility] OUTPATIENT [id number] 1420-VO MITING (322/57 4) RACQUEL HOLLINGSWORTH 06/23 Sick at Home/[facility] [place] [place] [address]([employer] Mustapha Black d) [facility] [place] [address] [employer] [place] OUTPATIENT [id number] 1220- REVIEW [facility]IV[facility] N MEDS (322/57 4) DARWIN GIL 06/28 Released w/o Limitations [facility] [place] [address]([employer] Mustapha Black d) [employer]([facility]) OUTPATIENT [id number] wwe...WOO Doty 03/09 Released w/o Limitations [employer]([facility]) [employer](Opt ometry Cl EG) OUTPATIENT [id number] Eye exam... [facility] MACY STATON S 09/19 Released w/o Limitations [employer](O ptometr y Cl EG) [facility]) TELE CONSULT [id number] New LUISA Mcgraw 10/23 [facility] [employer] [facility]) OUTPATIENT [id number] anxiety /Depres bernice LUISA [place] S 10/25 Released w/o Limitations [facility]) [facility]) OUTPATIENT [id number] anxiety /depres GEMMA Light O 10/26 Released w/o Limitations [employer]([facility]) [employer]([facility]) OUTPATIENT [id number] f/u BAYLEE LUISA S 10/31 Released w/o Limitations [employer]([facility] En[facility] [id number] 08/17 [facility] En[facility] [id number] 09/29 [facility] [place] [place] [facility] OFFICE O/P NEW HI 60-74 MIN [id number] Diagnos is: ICD-10- CM E28.2 Polycys tic ovarian syndrom e
FURCOHIRA,TI NA 10/07 [facility] En[facility] [id number] Екатерина WILKINS 03/22 [facility] En[facility] [id number] 03/30 [facility] OFF/OP EST MARCH X REQ PHY/QHP [id number] Diagnos is: ICD-10- CM Z71.89 Other specifi ed hiv counselor ing<br/ > Sonam FARLEY 04/23 [facility] En[facility] [id number] 04/23 [facility] Encounter [id number] Diagnos is: ICD-10- CM Z77.9 Oth contact w and (suspec claudia) exposur es hazardo [facility]< br/> ISHAAN ALBARADO 07/15 [facility] En[facility] [id number] 1.08/02 [facility] [id number] 1.09/09 [facility] Encounter [id number] 1.09/09 [facility] OFF/OP EST MAY X REQ PHY/QHP [id number] 1. Diagnos is: ICD-10- CM Z71.89 Other specifi ed hiv counselor ing<br/ > Tammy FOWLER 09/09 [facility] OFFICE O/P EST LOW 20 MIN [id number] 1. Diagnos is: ICD-10- CM R30.0 Dysuria
PERLA LESLIE 09/09 [facility] En[facility] [id number] 1. Tammy FOWLER 09/10 [facility] En[facility] [id number] [facility] En[facility] [id number] 09/24 [facility] OFFICE O/P EST MOD 30 MIN [id number] Diagnos is: ICD-10- CM E28.2 Polycys tic ovarian syndrom e
FELISHA CONNOLLY NA 10/07 [place] [facility] [place] [facility] [place] [facility] Outpatient Encounter [id number] RYLEE ESPITIA 11/19 [place] [facility] [place] [place] [facility] [place] [facility] PH1 ASSMT&MGMT NQHP 10-06 [id number] Diagnos is: ICD-10- CM F43.12 Post-tr aumatic stress disorde r, chronic
HALVINAY ALCANTARA R 11/22 [facility] [place] [place] [facility] Procedures Combined list of: 1) Procedures from [facility] facilities going back up to thelast 18 months, not all [place] non-surgical procedures are included; 2) All procedures from the Department of Defense facilities. Procedure Procedure Type Code Date Perfomer Comments Sourc e PREPARATION OF REPORT OF PATIENT'S PSYCHIATRIC STATUS, HISTORY, TREATMENT, OR PROGRESS (OTHER THAN FOR LEGAL OR CONSULTATIVE PURPOSES) FOR OTHER INDIVIDUALS, AGENCIES, OR INSURANCE CARRIERS 02/20/[address] [facility] INDIVIDUAL PSYCHOTHERAPY, INSIGHT ORIENTED, BEHAVIOR MODIFYING AND/OR SUPPORTIVE, IN AN OFFICE OR OUTPATIENT FACILITY, APPROXIMATELY 45 TO 50 MINUTES [id number] WITH THE PATIENT 10/31/20 [facility] INDIVIDUAL PSYCHOTHERAPY, INSIGHT ORIENTED, BEHAVIOR MODIFYING AND/OR SUPPORTIVE, IN AN OFFICE OR OUTPATIENT FACILITY, APPROXIMATELY 20 TO 30 MINUTES [id number] WITH THE PATIENT 10/26/[address] [facility] PSYCHIATRIC DIAGNOSTIC INTERVIEW EXAMINATION 10/25/20 [facility] FUNDUS PHOTOGRAPHY WITH INTERPRETATION AND REPORT 09/19/[address] [facility] INJECTION, PROMETHAZINE HCL, UP TO 50 MG 06/23/[address] [facility] Psychiatric Therapy Preparation of Psychiatric Status Report Psychiatric Therapy Preparation of Psychiatric Status Report [id number] 02/20/[address] [facility] Psychiatric Diagnostic Evaluation Review of Records and Reports Psychiatric Diagnostic Evaluation Review of Records and Reports [id number] 02/20/[address] [facility] Psychotherapy Individual Approximately 45 Minutes Psychotherapy Individual Approximately 45 Minutes [id number] 11/01/20 09 [place] [place] [facility] Psychotherapy Individual Approximately 45 Minutes Psychotherapy Individual Approximately 45 Minutes [id number] 10/26/[address] [facility] Psychiatric Diagnostic Evaluation Comprehensive Examination Psychiatric Diagnostic Evaluation Comprehensive Examination [id number] 10/25/[address] [facility] Determination Of Refractive State Determination Of Refractive State 35869 09/21/[address] [facility] Spectacles Services Fitting Monofocal Except For Aphakia Spectacles Services Fitting Monofocal Except For Aphakia [id number] 09/21/20 MACY STATON SPEC FIT 3X [facility] Ophthalmological New Patient Start Comprehensive Care Ophthalmological New Patient Start Comprehensive Care [id number] 09/21/[address] [facility] Social History Combined list of available smoking, tobacco, and other social history from Department of Defense and Veterans Affairs facilities. Social History Type Response Date Comment Sourc e Tobacco smoking status NHIS [place]-TO[place]ACCO NEVER USED CIGARETTES 10/07/2024 [facility] [place] [facility] History of tobacco use TN-TOBACCO NEVER USED OTHER TYPE 10/07/2024 [place] [facility] [place] [facility] History of tobacco use [place]-TOBACCO FORMER USER 09/29/2023 [place] [facility] [place] [facility] This section is an empty social history section. [facility] Plan of Care List of future care activities from Department of Veterans Affairs facilities. Additional future care activities may be listed in the Assessment and Plan section. Date/Time Care Activity Care Activity Detail Facili ty 12/09/2024 AMBULATORY - PSYCHIATRY AMBULATORY - PSYC HIATRY [place] [facility] [place] [facility]
--- OUTSIDE RECORDS SUMMARY | 2024-11-25 16:33 | XMS_ITS | Encounter Summary ---
Author Name [facility] [place] Address [address] [place] [address] Care Team Providers Care Shipping And Receiving Operator Name Role Phone QAMAR CONNOLLY Primary Care Provider Unavailabl e Selected Encounter This section includes the information on record at [place] for the Encounter. Date/Time Encounter Type Encounter Description Reason Provider Source Nov 22, 2024 01:30 PM PH1 ASSMT&MGMT NQHP 11-20 TELEPHONE ICD-10-CM F43.12 Post-traumatic stress disorder, chronic GOGO HONG E Encounter Template Text not used by [place] Assessments - Encounter Diagnoses This section includes the primary and secondary diagnoses documented for the Encounter. Date/Time Primary/Secondary Diagnosis Diagnosis Name Provider Source Nov 22, 2024 01:30 PM PRIMARY Post-traumatic stress disorder, chronic GOGO HONG [facility] Plan of Treatment: Future Appointments (+ [...] Date/Time Appointment Type Appointme nt Facility Name Dec 09, 2024 02:30 PM AMBULATORY - PSYCHIATRY [facility] Social History: Smoking Status (Most current) [...] 03:30 PM VA-TOBACCO NEVER U SED CIGARETTES [facility] Tobacco Use History This section includes a history of the smoking, or tobacco-related health factors, that were collected on or before the date of the Encounter. The data comes from the [place] facility where the Encounter took place. Date/Time Smoking Status/Tobacco Use Comment F acility Oct 07, 2024 03:30 PM VA-TOBACCO NEVER U SED OTHER TYPE [facility] Sep 29, 2023 08:46 AM VA-TOBACCO FORMER USER [facility] Sep 29, 2023 08:46 AM VA-TOBACCO QUIT 5 TO < 15 YRS [facility] Encounter Notes: All associated encounter notes This section contains the clinical notes associated to the Encounter. Date/Time Encounter Note(s) Provider Source Nov 22, 2024 01:53 PM MENTAL HEALTH COMMUNICATION NOTE: LOCAL TITLE: PRIMARY MENTAL HEALTH CONTACT NOTE STANDARD TITLE: MENTAL HEALTH COMMUNICATION NOTE DATE OF NOTE: NOV 22, 2024@13:53 ENTRY DATE: NOV 22, 2024@13:53:40 AUTHOR: VALERIA HONG COSIGNER: URGENCY: STATUS: COMPLETED PCMHI TELEPHONE NOTE DURATION: 15 mins REFERRING PROVIDER: PCPWoody REASON FOR REFERRAL: learn about [place] MH treatment options Informed consent and limits of confidentiality were provided. Josh Connor is a 44 year-old [place] with a PMH of ADHD, PTSD, and depression. Immigration Lawyer called after learning she would like to learn about [place] MH service options. Immigration Lawyer introduced herself and PCMHI and provided informed consent and limits of confidentiality. Immigration Lawyer described [facility] and BHIP options as well as and community care. Josh Connor reported that she would like to start with [facility]HI. She also endorsed PTSD symptoms and shared that she was at work and worked at the [employer]. She denied SI/HI or MH safety concerns and confirmed having access to [place] crisis hotline if symptoms were to worsen or change. Further assessment, shared decision making, and functional assessment will be completed at next health assessment appt. [place] expressed interest in scheduling F2F initial PCMHI appt. INTERVENTION: Provided psychoeducation on PCMHI services Conducted brief SI/HI assessment- [place] declined SI/HI symptoms or crisis concerns DIAGNOSES: PTSD (SC) IMPRESSIONS/PLAN: Josh Connor endorsed challenges with anxiety and PTSD (SC). Josh Connor denied SI/HI or safety concerns. In addition, she was informed of how to access [place] crisis hotline service if he were to experience elevated symptoms and was provided with law writer's direct contact information. She will return to [facility] for roughly 3-5, individual sessions. She will return to [facility] for full initial health assessment appointment 12/09 at 230pm. INTERDICIPLINARY TREATMENT PLANNING INVOLVING: Referring provider will be alerted of this plan /adonay/ VALERIA HONG, PhD STAFF PSYCHOLOGIST Signed: 11/24/2024 12:44 Receipt Acknowledged By: 11/25/2024 08:01 /adonay/ QAMAR CONNOLLY D.O. PHYSICIAN VALERIA HONG [facility]
== END 2024-11-25 14:19 | disposition home or self-care (01) ==
LOC: HO.HMGCX 14:18
PROVIDERS: PCP Internal Medicine; Visit Provider Advanced Practice Midwife
DX: N92.1 Excessive and frequent menstruation with irregular cycle (principal); Z97.5 Presence of (intrauterine) contraceptive device
CPT/HCPCS: 76830; 76856

== ENCOUNTER → 2024-11-25 14:23 | Outpatient (BNV) | payer BC, SELFPAY | PROVIDERS: PCP Internal Medicine; Visit Provider Radiology Diagnostic Radiology | DX: N92.1 Excessive and frequent menstruation with irregular cycle (principal) | CPT/HCPCS: 76830; 76856 ==

== ENCOUNTER 2024-12-01 10:44 | Outpatient (AMB) | payer BC, SELFPAY ==
--- NOTE | 2024-12-01 10:45 | A.OFFVIS_ITS ---
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 Required: No Information Interpreted: non-clinical & clinical Allergies methylphenidate [From Concerta] Allergy (Verified 12/01/24 10:46) Rash Medication List - Last Reconciled 12/01/24 by Zainab Castaneda CNM bupropion HCl XL 150 mg PO QAM dextroamphetamine-amphetamine 10 mg 1 tab PO DAILY dextroamphetamine-amphetamine 20 mg ER 1 cap PO DAILY levonorgestrel (Mirena) intrauterine PFSH Medical History Diverticula, small intestine Hyperlipemia Surgical History History of surgery Social History Household Members: Children Alcohol intake: never Patient Tobacco Use Status: Never used Tobacco Gender identity: Female Female Reproductive History Menstrual Age of Menarche: 13 Telehealth Telehealth Telehealth Platform: Telephone Location of provider rendering services: practice address Location of patient: address on file Patient Identification confirmed using: Name, : Yes Telehealth method: video (Poor quality had to switch to phone) Patient verbally consented to treatment: Yes Patient verbally consented to billing insurance company: Yes Patient informed of any privacy concerns related to visit: Yes Minutes spent on Phone/Video with Pt.: 10 (5 cr/10 speaking w pt/10 charting) Results Reviewed Results Reviewed: Patient: Codie Sarabia MR#: [id number] : 1980 Acct:[id number] Age/Sex: 44 / F ADM Date: 11/25/24 Loc: HO.HMGCX Attending Dr: Zainab Castaneda CNM Ordering Physician: Zainab Castaneda CNM Date of Service: 11/25/24 Procedure(s): US pelvic and transvaginal Accession Number(s): [id number] cc: Gonzalez Altman DO, MD; Zainab Castaneda CNM~ EXAMINATION: US PELVIS TRANSABDOMINAL AND TRANSVAGINAL HISTORY: Z97.5 - Presence of (intrauterine) contraceptive device COMPARISON: There are no prior studies for comparison. TECHNIQUE: Transabdominal and endovaginal real-time 2D carter-scale ultrasound was performed. Color Doppler was also performed. FINDINGS: Uterus: The uterus is normal in size, measuring 8.4 x 4.6 x 5.3 cm. Myometrium has a normal echotexture. No fibroids are identified. Endometrium: The endometrial stripe is not well evaluated due to the presence of an IUD which appears in appropriate position. Right ovary: The right ovary measures 3.5 x 2.0 x 2.2 cm. The right ovary is normal in size and echotexture. Left ovary: The left ovary measures 2.5 x 1.4 x 3.1 cm. The left ovary is normal in size and echotexture. Color Doppler analysis of the bilateral ovarian arteries and veins are normal. Pelvic fluid: none. US/US pelvic and transvaginal IMPRESSION: IUD appears in appropriate position. Unremarkable pelvic ultrasound. Electronically signed by: Jose Jim MD 11/25/2024 03:02 PM [facility] Dictated By: Jose Jim MD Signed By: <Electronically signed by Jose Jim MD in OV> 11/25/24 1502 DD/ 1423 TD/TT: 11/25/24 1444 Pilot Can Router: Name: Codie Sarabia Melvin Age/Sex: 41/F Attending: Zainab Castnaeda CNM : 1980 Submitted by: Zainab Castaneda CNM Copies to: Krzysztof Ruelas MD MR #: [id number] Status: DEP REF Collected: 02/06/22 Location: .LAB Received: 02/07/22 Interpretation Satisfactory for evaluation. Negative for intraepithelial lesion or malignancy. HPV mRNA E6/E7: NOT DETECTED This assay detects E6/E7 viral messenger RNA (mRNA) from 14 high-risk HPV types (16, 18, 31, 33, 35, 39, 45, 51, 52, 56, 58, 59, 66, 68) HPV testing performed by [employer] [facility], [place], [place]. See reference laboratory pion of the EMR for entire report. Clinical Information LMP:Unknown date, IUD Previous PAP test:2018,WNL Other history:2017 abnormal PAP FIDELIA I Material Received ThinPrep-Cervical Copies To Krzysztof Ruelas MD [facility], [address] [id number] Zainab Castaneda [address] [place] [address] Electronically Signed By: TEDDY Swift (ASCP) 02/20/22 1410 The Pap Test is a screening procedure with the inherent possibility of both false negative and false positive results. Results should be interpreted in the context of historic and current clinical findings. R eliability of the Pap Test is enhanced by performing the test on a regular repetitive basis. Patient: Codie Sarabia Age/Sex: 41/F MR#: [id number] Page 1 of 1 Assessment & Plan Assessment & Plan (1) Presence of 52 mg levonorgestrel-releasing intrauterine device (IUD): Code(s): Z97.5 - Presence of (intrauterine) contraceptive device Category: Social Hx (2) Breakthrough bleeding associated with intrauterine device (IUD): Comment: and cramping since 11/20 Code(s): N92.1 - Excessive and frequent menstruation with irregular cycle; Z97.5 - Presence of (intrauterine) contraceptive device Category: Medical Plan I reviewed that is always possible to have some breakthrough bleeding with the Mirena IU S she is still bleeding it is now 11 days. I reviewed that if she bleeds for prolonged period of time for instance a month that it might be acceptable to consider a short course of oral contraceptives to help slow the bleeding down but at this point would not be as breakthrough bleeding can be a normal side effect and she has not had any bleeding since this was inserted nor did she have her periods with her previous IUD so some bleeding can be within the realm of expectations and the Mirena is not guaranteed to prevent all bleeding and all menses. I reviewed the ultrasound with her everything that they reviewed is completely normal. We will see her for her annual exam on December 30 she did inquire as to whether stress could cause the bleeding and I could not tell her that certainly stress can influence all of our hormonal interactions, but it is not possible for me to say what absolutely causes something in terms of stress causing bleeding. Coding Level of Care Code Tele Est Pt Level 3 (62205) Diagnoses Presence of 52 mg levonorgestrel-releasing intrauterine device (IUD) Z97.5 Breakthrough bleeding associated with intrauterine device (IUD) N92.1; Z97.5
== END 2024-12-01 12:59 | disposition home or self-care (01) ==
LOC: HO.HWSM 10:44
PROVIDERS: PCP Internal Medicine; Visit Provider Advanced Practice Midwife
DX: N92.1 Excessive and frequent menstruation with irregular cycle (principal); Z97.5 Presence of (intrauterine) contraceptive device
CPT/HCPCS: 99213

== ENCOUNTER → 2024-12-01 10:44 | Outpatient (BNVA) | payer BC, SELFPAY | PROVIDERS: PCP Internal Medicine; Visit Provider Advanced Practice Midwife ==

== ENCOUNTER → 2025-04-25 07:45 | Outpatient (BNV) | payer BC, SELFPAY | PROVIDERS: PCP Internal Medicine; Visit Provider Internal Medicine | DX: Z12.31 Encounter for screening mammogram for malignant neoplasm of breast (principal) | CPT/HCPCS: 77063; 77067 ==

== ENCOUNTER 2025-04-25 07:46 | Outpatient (REF) | payer BC, SELFPAY ==
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
== END 2025-04-25 07:47 | disposition home or self-care (01) ==
LOC: HO.MAMMO 07:46
PROVIDERS: PCP Internal Medicine; Visit Provider Internal Medicine
DX: Z12.31 Encounter for screening mammogram for malignant neoplasm of breast (principal)
CPT/HCPCS: 77063; 77067